=== PATIENT | male | born 1935 | race Caucasian/White ===

== ENCOUNTER 2016-11-15 19:43 | Emergency (ER) | payer MEDICARE, OTHER, MEDICAID ==
[2016-11-15] MEDS ORDERED: Morphine 4 MG/ML Syringe IVPUSH ONE (20:28)
[2016-11-15 20:48] LABS: CHLORIDE,CL 101 mmol/L (98-107); SODIUM,NA 137 mmol/L (136-145)
[2016-11-15 21:19] VITALS: BP 149/83
--- NOTE | 2016-11-16 08:34 | ER ---
Date of Service: 11/15/2016 SUBJECTIVE: Mr. Kim presents to the emergency room with complaints of left hip pain. He states that he was attempting to sit on the toilet when he fell onto his left side and states that he is experiencing severe pain to his left hip. He states that he has a history of severe osteoporosis and has previously fractured his right hip. He states that he did land on his left shoulder and sounds as though he did hyperextend it to a certain extent and states that he is experiencing some mild anterior shoulder pain. Initially, he was complaining of some lateral neck pain, but that resolved shortly after arriving to the emergency room. He also complains of a superficial skin tear to his left elbow. Again, he did not lose consciousness or experience any chest pain, shortness of breath, or palpitations prior to the fall and was conscious during the entire event. He did receive 1 mg of Dilaudid pre-hospital to aid with movement and pain control. PAST MEDICAL HISTORY: 1. Hypertension. 2. Type 2 diabetes mellitus. 3. Vitamin B12 deficiency. 4. Vitamin D3 deficiency. 5. Dyslipidemia. 6. Osteopenia. 7. Osteoporosis. 8. Coronary artery disease. 9. Diastolic heart failure. 10.Peptic ulcer disease. 11.Gastroesophageal reflux. 12.Peripheral vascular disease. 13.Essential hypertension. 14.BPH. ALLERGIES: It says beta-blockers he is allergic to. He is on a beta emilio. The patient states that he is allergic to beta-blockers; however, he is on both Toprol-XL and timolol eyedrops. It sounds as though they stopped his beta- emilio for cardiac procedure and sounds as though that is why this allergy is ended up in his chart. MEDICATIONS: 1. Aspirin 325 mg p.o. daily. 2. Acetaminophen 1000 mg p.o. b.i.d. p.r.n. 3. Lantus 10 units subcutaneously b.i.d. 4. Lasix 20 mg p.o. b.i.d. 5. Cyanocobalamin 1000 mcg p.o. daily. 6. Vitamin D3 1000 units p.o. daily. 7. Calcium plus D 1 tablet daily. 8. Humalog 5 units subcu b.i.d. with meals. 9. Glucophage 750 mg p.o. b.i.d. 10.Timoptic 0.5% 1 drop to both eyes b.i.d. 11.Pravachol 20 mg p.o. daily. 12.Toprol XL 12.5 mg p.o. daily. 13.Magnesium oxide 400 mg p.o. daily. 14.Cozaar 100 mg p.o. daily. 15.Florajen supplement 1 cap daily. REVIEW OF SYSTEMS: General: Denies any fever, chills, recent illnesses. HEENT: States that he did lightly strike his head during the fall, but denies any headache. Denies any confusion. He states that he did not strike his head, it was a very light strike to the head. Denies any other head or facial trauma noted. Chest: Denies any chest trauma. No chest pain or shortness of breath. Abdomen: Denies any abdominal pain. Pelvis: Again complains of right lateral hip pain in the area of the lateral trochanter. Musculoskeletal: He does have a superficial abrasion to his left elbow. He also does have some mild anterior left shoulder pain. No step-offs or deformity noted. His range of motion to the joint is within normal limits. Neurovascular, circulation, sensation, and motor function are all within normal limits in the distal portion of all extremities. No rotation to the left lower extremity. No shortening noted. Neurologic: He is alert, oriented, answers all questions appropriately. His speech is fluent. RADIOGRAPHIC DATA: Pelvis and left hip radiographs were obtained. He does have evidence of a nondisplaced left intertrochanteric hip fracture. LABORATORY DATA: WBC is 12.3, hemoglobin is 13.1, platelets are 218. Coag PT is 11.6, INR is 1.0. Chemistry, sodium is 137, potassium is 4.0, chloride is 101, bicarb is 28, BUN is 7, creatinine is 1.0. Creatinine clearance is 62.51. GFR is greater than 60. Glucose is 169, calcium is 8.3, corrected calcium is 8.78, total bilirubin is 0.5, AST is 26, ALT is 39, alkaline phosphatase is 116, total protein is 6.8, albumin is 3.4. EMERGENCY ROOM COURSE: IV access was established. He was given another 4 mg of morphine for further pain control. He was not experiencing any midline cervical spinal pain, so no C-collar was applied. He remained stable in my care in the emergency room. ASSESSMENT: Left intertrochanteric hip fracture. PLAN: The patient will be transferred to [facility] in [place]. Dr. Guevara is accepting the patient. The patient will be transported to the ER and then set up for surgery. He will be transported by [facility] ground ambulance. He can receive further morphine or Dilaudid for pain control. All questions were answered. MWK: 11/15/2016 21:29:22 MODL: 11/15/2016 22:39:24 /[id number]
--- NOTE | 2016-11-28 08:01 | ER ---
Date of Service: 11/15/2016 ADDENDUM: PHYSICAL EXAMINATION: General: The patient is an 81-year-old male patient, who is in no acute distress. Vital Signs: Blood pressure is 161/75, after his pain was adequately controlled was down to 149/83, pulse rate 76, temperature is 37.1, respiratory rate 18, O2 saturations 95%. Skin: Warm, pale, and dry. HEENT: Head is normocephalic and atraumatic. Eyes, PERRLA. Extraocular movements are intact. Heart: Regular rate and rhythm. Abdomen: Soft and nontender. Lungs: Clear to auscultation. Abdomen: Soft and nontender. There is no hepatosplenomegaly or masses noted. Extremities: Please see history of present illness. Again, he does complain of severe left hip pain. Also, complains of superficial abrasion to the left elbow. Remainder of his physical examination is within normal limits. MWK: 11/27/2016 16:41:52 MODL: 11/28/2016 00:33:16 /[id number]
== END 2016-11-15 21:50 | disposition short-term general hospital (02) ==
LOC: VM.ED 19:43
DX: S72.145A Nondisplaced intertrochanteric fracture of left femur, initial encounter for closed fracture (principal); S50.312A Abrasion of left elbow, initial encounter; S40.212A Abrasion of left shoulder, initial encounter; E11.9 Type 2 diabetes mellitus without complications; E78.5 Hyperlipidemia, unspecified; I25.10 Atherosclerotic heart disease of native coronary artery without angina pectoris; I11.0 Hypertensive heart disease with heart failure; I50.30 Unspecified diastolic (congestive) heart failure; K21.9 Gastro-esophageal reflux disease without esophagitis; Z88.8 Allergy status to other drugs, medicaments and biological substances; Z79.82 Long term (current) use of aspirin; Z79.4 Long term (current) use of insulin; Z79.899 Other long term (current) drug therapy; W19.XXXA Unspecified fall, initial encounter
CPT/HCPCS: 36415; 73502; 80053; 85025; 85610; 96374; 99285; J2270

== ENCOUNTER 2016-11-20 09:28 | Inpatient (IN) | payer MEDICARE, OTHER, MEDICAID ==
[2016-11-20] MEDS ORDERED: Insulin Aspart 100 Units/ML 3 ML Pen SUBCUT ONE (12:13)
[2016-11-20] MEDS: Acetaminophen/HYDROcodone 325-5 MG Tab PO PRN ×2 (12:17→21:34)
[2016-11-20] MEDS ORDERED: Bisacodyl 5 MG Tab PO PRN (14:41)
[2016-11-20] MEDS: Furosemide 20 MG Tab PO SCH (16:00)
[2016-11-20] MEDS: Insulin Aspart 100 Units/ML 3 ML Pen SUBCUT SCH (17:52)
[2016-11-20] MEDS: Insulin Detemir 100 Units/ML 3 ML Pen SUBCUT SCH (19:59)
[2016-11-20] MEDS: Timolol Maleate 0.5% Ophth Soln 5 ML Bottle EYEBOTH SCH (20:00)
--- NOTE | 2016-11-20 21:25 | HP ---
CHIEF COMPLAINT: Left hip fracture status post left hip IM nailing on 11/17/2016. HISTORY OF PRESENT ILLNESS: This is an 81-year-old male who broke his right hip last year. He was trying to sit down on, he let go of the walker and the chair tipped over breaking his hip. He was transferred to [place] and underwent surgery. He had no postoperative complications. He has had no trouble breathing. His hemoglobin was 9.4 yesterday and had been recently checked through the clinic on the and was 13.7, he did not require any blood transfusions. He has been on Lovenox for DVT prophylaxis. Otherwise, he has not had a bowel movement for several days. He is taking hydrocodone which helps for pain control. He had recently been in the clinic and due to increased leg swelling, had increased Lasix to 20 mg twice daily. He is tolerating that without any lightheadedness or dizziness. ALLERGIES: Includes beta blockers with severe bradycardia. MEDICATIONS: Includes the Humalog 5 units at noon, 3 units at supper; Lovenox 40 units daily through 12/14; hydrocodone as needed for severe pain, ; Shyanne- Colace 1 tab twice daily; Lasix 20 mg twice daily, vitamin D 3000 units daily; losartan 100 mg daily, Pravachol 20 mg daily; Flomax 1 capsule daily; Toprol 25 mg daily; Tylenol as needed; Echinacea; saw Cora; multivitamins; calcium; vitamin D; co-enzyme Q10; digestive enzymes; metformin 1500 mg daily; Timoptic eye drops; Lantus 10 units b.i.d.; mag oxide 400 mg daily; and aspirin 325 daily. PAST MEDICAL HISTORY: Include: 1. Osteopenia. He had previously been in the clinic to discuss this. He declines medications at this point. 2. T-score was -2.1. 3. Reactive airway disease that was not asthma, type 2 diabetes with retinopathy, long-term insulin use under good control. 4. Coronary artery disease status post bypass surgery. Previous posterior vitreous detachment of the eye, arthritis of the knees, glaucoma open- angle, hyperlipidemia, history of duodenal ulcer and previous GI bleeding in 2011, previous cataract surgery, peripheral vascular disease due for followup with Vascular Surgery in a couple of weeks, chronic diastolic heart failure on Lasix, erectile dysfunction, obesity, GERD, hypertriglyceridemia, diffuse idiopathic skeletal hyperostosis, vitamin B12 deficiency, and BPH. PAST SURGICAL HISTORY: The patient has had a cataract surgery in 2015 on the left eye, dental surgery, tonsillectomy, hip nailing on the right, and 2016 hip nailing on the left, bypass surgery in 2013 of the heart x3. SOCIAL HISTORY: The patient is retired. He is . He has 3 children. FAMILY HISTORY: He has both parents . His sisters with diabetes, brother with heart attack. Another brother with post-polio issues. REVIEW OF SYSTEMS: General: He had not had any recent weight changes. No fever. No chills. HEENT: No trouble swallowing. No sore throat. Cardiac: No chest pain. No palpitations. No syncope. Respiratory: No cough. Abdominal: No abdominal pain, nausea, vomiting, or diarrhea. Musculoskeletal: He has had the hip pain. Otherwise, no new aches or pains. Psychiatric: He has not been anxious or depressed. Neurologic: He has not been forgetful. Otherwise, all systems reviewed and found to be negative unless otherwise stated. PHYSICAL EXAMINATION: Vital Signs: On hospital arrival, his weight is listed as 114.5 kg, pulse 78, temperature 97.2, blood pressure 160/73, respiratory rate 16, and O2 of 100% on room air. General: He is in no acute distress. Heart: Regular rate and rhythm. S1, S2 with diastolic murmur. Lungs: Sounds are clear to auscultation bilaterally without crackles or wheezes. Abdomen: Positive bowel sounds. Soft and nontender. Extremities: Warm and dry. No edema. Hip incision is not examined on initial exam. He had no concerns. No drainage from it. No gisele in place by report. Mental Status: Otherwise, he is alert and orientated x3. LABORATORY DATA: Again lab work was reviewed from yesterday, hemoglobin 9.4. Kidney function from 11/17 did show a creatinine of 0.6 with sodium 132. ASSESSMENT: 1. Left hip fracture due to mechanical fall, but from a standing height with known osteopenia. Discussed with the patient it might be advisable to take treatments like Forteo for his bones. He has heard bad things about bone building medications and is not interested at this point. For pain control, we will continue the hydrocodone, will continue the Lovenox for another 24 days. 2. Hyponatremia, mild. We will repeat lab work tomorrow. 3. Postoperative anemia due to bleeding. We will repeat tomorrow to ensure that there is no active bleeding. We will hold Lovenox if that is the case. 4. Type 2 diabetes with complications, well controlled. We will continue his home insulin with q.i.d. Accu-Cheks. 5. Essential hypertension with elevated blood pressures. We will continue his Lasix 20 mg twice daily and losartan and also his Toprol even though it is listed as an allergy with bradycardia. We will continue to monitor his heart rates closely. 6. Coronary artery disease. He has not had any chest pain. PLAN: At this point, the patient is admitted for swing bed cares. We will get PT OT to assess him. He will have support stockings. He is weightbearing as tolerated. We will continue Lovenox. We will continue bowel medications. We will institute Dulcolax as needed. Pain control with hydrocodone. He is a code level 1. MKA: 11/20/2016 17:28:56 MODL: 11/20/2016 21:16:50 /[id number]
[2016-11-21] MEDS: Acetaminophen/HYDROcodone 325-5 MG Tab PO PRN ×3 (04:16→20:36)
[2016-11-21 07:23] LABS: CHLORIDE,CL 101 mmol/L (98-107); SODIUM,NA 137 mmol/L (136-145)
[2016-11-21] MEDS: Furosemide 20 MG Tab PO SCH ×2 (07:34→15:55)
[2016-11-21] MEDS: Enoxaparin 40 MG/0.4 ML Syringe SUBCUT SCH (07:34)
[2016-11-21] MEDS: Calcium Carbonate/Vitamin D3 1250 MG-200 Unit Tab PO SCH (07:34)
[2016-11-21] MEDS: Metoprolol Succinate 25 MG Tab.ER PO SCH (07:35)
[2016-11-21] MEDS: metFORMIN 500 MG Tab PO SCH ×2 (07:35→17:39)
[2016-11-21] MEDS: Magnesium Oxide 400 MG Tab PO SCH (07:38)
[2016-11-21] MEDS: Cholecalciferol (Vitamin D3) 1,000 Unit Tab PO SCH (07:38)
[2016-11-21] MEDS: Losartan 50 MG Tab PO SCH (07:38)
[2016-11-21] MEDS: Multivitamins with Iron/Calcium/Folic Acid/Minerals Tab PO SCH (07:39)
[2016-11-21] MEDS: Tamsulosin 0.4 MG Cap.ER PO SCH (07:39)
[2016-11-21] MEDS: Timolol Maleate 0.5% Ophth Soln 5 ML Bottle EYEBOTH SCH ×2 (07:40→20:36)
[2016-11-21] MEDS: Simvastatin 10 MG Tab PO SCH (07:40)
[2016-11-21] MEDS: Aspirin 81 MG Tab.EC PO SCH (07:40)
[2016-11-21] MEDS: Insulin Detemir 100 Units/ML 3 ML Pen SUBCUT SCH ×2 (07:43→20:35)
[2016-11-21] MEDS: [UNRECOGNIZED DRUG - OTHER] PO SCH (08:44)
[2016-11-21] MEDS: ECHINACEA PO SCH (08:44)
[2016-11-21] MEDS: SAW PALMETTO 1200 MG PO SCH (08:44)
[2016-11-21] MEDS: POTASSIUM 99 MG PO SCH (08:44)
[2016-11-21] MEDS: Insulin Aspart 100 Units/ML 3 ML Pen SUBCUT SCH ×2 (11:48→17:39)
[2016-11-22] MEDS: Calcium Carbonate/Vitamin D3 1250 MG-200 Unit Tab PO SCH (08:47)
[2016-11-22] MEDS: Furosemide 20 MG Tab PO SCH ×2 (08:47→16:03)
[2016-11-22] MEDS: Enoxaparin 40 MG/0.4 ML Syringe SUBCUT SCH (08:47)
[2016-11-22] MEDS: metFORMIN 500 MG Tab PO SCH ×2 (08:47→18:07)
[2016-11-22] MEDS: Losartan 50 MG Tab PO SCH (08:48)
[2016-11-22] MEDS: Tamsulosin 0.4 MG Cap.ER PO SCH (08:49)
[2016-11-22] MEDS: Aspirin 81 MG Tab.EC PO SCH (08:49)
[2016-11-22] MEDS: Acetaminophen/HYDROcodone 325-5 MG Tab PO PRN ×2 (08:49→19:54)
[2016-11-22] MEDS: Metoprolol Succinate 25 MG Tab.ER PO SCH (08:51)
[2016-11-22] MEDS: Multivitamins with Iron/Calcium/Folic Acid/Minerals Tab PO SCH (08:51)
[2016-11-22] MEDS: Magnesium Oxide 400 MG Tab PO SCH (08:52)
[2016-11-22] MEDS: Cholecalciferol (Vitamin D3) 1,000 Unit Tab PO SCH (08:52)
[2016-11-22] MEDS: Simvastatin 10 MG Tab PO SCH (08:52)
[2016-11-22] MEDS: Timolol Maleate 0.5% Ophth Soln 5 ML Bottle EYEBOTH SCH ×2 (08:53→19:55)
[2016-11-22] MEDS: SAW PALMETTO 1200 MG PO SCH (08:53)
[2016-11-22] MEDS: [UNRECOGNIZED DRUG - OTHER] PO SCH (08:54)
[2016-11-22] MEDS: POTASSIUM 99 MG PO SCH (08:54)
[2016-11-22] MEDS: ECHINACEA PO SCH (08:54)
[2016-11-22] MEDS: Insulin Detemir 100 Units/ML 3 ML Pen SUBCUT SCH ×2 (08:55→19:55)
[2016-11-22] MEDS: Insulin Aspart 100 Units/ML 3 ML Pen SUBCUT SCH ×2 (12:30→18:08)
[2016-11-23] MEDS: Cholecalciferol (Vitamin D3) 1,000 Unit Tab PO SCH (08:41)
[2016-11-23] MEDS: Enoxaparin 40 MG/0.4 ML Syringe SUBCUT SCH (08:41)
[2016-11-23] MEDS: Multivitamins with Iron/Calcium/Folic Acid/Minerals Tab PO SCH (08:41)
[2016-11-23] MEDS: metFORMIN 500 MG Tab PO SCH ×2 (08:42→17:27)
[2016-11-23] MEDS: Losartan 50 MG Tab PO SCH (08:42)
[2016-11-23] MEDS: Aspirin 81 MG Tab.EC PO SCH (08:42)
[2016-11-23] MEDS: Tamsulosin 0.4 MG Cap.ER PO SCH (08:42)
[2016-11-23] MEDS: Calcium Carbonate/Vitamin D3 1250 MG-200 Unit Tab PO SCH (08:42)
[2016-11-23] MEDS: Simvastatin 10 MG Tab PO SCH (08:42)
[2016-11-23] MEDS: Metoprolol Succinate 25 MG Tab.ER PO SCH (08:42)
[2016-11-23] MEDS: Furosemide 20 MG Tab PO SCH ×2 (08:43→17:27)
[2016-11-23] MEDS: Insulin Detemir 100 Units/ML 3 ML Pen SUBCUT SCH ×2 (08:43→22:09)
[2016-11-23] MEDS: Magnesium Oxide 400 MG Tab PO SCH (08:44)
[2016-11-23] MEDS: Acetaminophen/HYDROcodone 325-5 MG Tab PO PRN ×2 (08:46→22:09)
[2016-11-23] MEDS: ECHINACEA PO SCH (08:50)
[2016-11-23] MEDS: [UNRECOGNIZED DRUG - OTHER] PO SCH (08:50)
[2016-11-23] MEDS: POTASSIUM 99 MG PO SCH (08:50)
[2016-11-23] MEDS: SAW PALMETTO 1200 MG PO SCH (08:50)
[2016-11-23] MEDS: Timolol Maleate 0.5% Ophth Soln 5 ML Bottle EYEBOTH SCH ×2 (08:50→22:09)
[2016-11-23] MEDS: Insulin Aspart 100 Units/ML 3 ML Pen SUBCUT SCH ×2 (12:13→17:28)
[2016-11-24] MEDS: Acetaminophen 500 MG Tab PO PRN ×2 (01:44→23:27)
[2016-11-24] MEDS: Insulin Detemir 100 Units/ML 3 ML Pen SUBCUT SCH ×2 (09:13→19:31)
[2016-11-24] MEDS: Enoxaparin 40 MG/0.4 ML Syringe SUBCUT SCH (09:16)
[2016-11-24] MEDS: Multivitamins with Iron/Calcium/Folic Acid/Minerals Tab PO SCH (09:18)
[2016-11-24] MEDS: Aspirin 81 MG Tab.EC PO SCH (09:18)
[2016-11-24] MEDS: Cholecalciferol (Vitamin D3) 1,000 Unit Tab PO SCH (09:19)
[2016-11-24] MEDS: Metoprolol Succinate 25 MG Tab.ER PO SCH (09:20)
[2016-11-24] MEDS: Calcium Carbonate/Vitamin D3 1250 MG-200 Unit Tab PO SCH (09:21)
[2016-11-24] MEDS: metFORMIN 500 MG Tab PO SCH ×2 (09:22→17:49)
[2016-11-24] MEDS: Furosemide 20 MG Tab PO SCH ×2 (09:23→17:49)
[2016-11-24] MEDS: Tamsulosin 0.4 MG Cap.ER PO SCH (09:24)
[2016-11-24] MEDS: Simvastatin 10 MG Tab PO SCH (09:25)
[2016-11-24] MEDS: Timolol Maleate 0.5% Ophth Soln 5 ML Bottle EYEBOTH SCH ×2 (09:26→19:31)
[2016-11-24] MEDS: Losartan 50 MG Tab PO SCH (09:27)
[2016-11-24] MEDS: ECHINACEA PO SCH (09:28)
[2016-11-24] MEDS: [UNRECOGNIZED DRUG - OTHER] PO SCH (09:28)
[2016-11-24] MEDS: POTASSIUM 99 MG PO SCH (09:29)
[2016-11-24] MEDS: Magnesium Oxide 400 MG Tab PO SCH (09:29)
[2016-11-24] MEDS: SAW PALMETTO 1200 MG PO SCH (09:30)
[2016-11-24] MEDS: Acetaminophen/HYDROcodone 325-5 MG Tab PO PRN ×2 (09:38→22:04)
[2016-11-24] MEDS: Insulin Aspart 100 Units/ML 3 ML Pen SUBCUT SCH ×2 (12:22→17:50)
[2016-11-25] MEDS: Enoxaparin 40 MG/0.4 ML Syringe SUBCUT SCH (08:09)
[2016-11-25] MEDS: Timolol Maleate 0.5% Ophth Soln 5 ML Bottle EYEBOTH SCH ×2 (08:10→20:33)
[2016-11-25] MEDS: Cholecalciferol (Vitamin D3) 1,000 Unit Tab PO SCH (08:10)
[2016-11-25] MEDS: Insulin Detemir 100 Units/ML 3 ML Pen SUBCUT SCH ×2 (08:10→20:32)
[2016-11-25] MEDS: Multivitamins with Iron/Calcium/Folic Acid/Minerals Tab PO SCH (08:11)
[2016-11-25] MEDS: Furosemide 20 MG Tab PO SCH ×2 (08:11→17:54)
[2016-11-25] MEDS: Metoprolol Succinate 25 MG Tab.ER PO SCH (08:11)
[2016-11-25] MEDS: Calcium Carbonate/Vitamin D3 1250 MG-200 Unit Tab PO SCH (08:11)
[2016-11-25] MEDS: Aspirin 81 MG Tab.EC PO SCH (08:11)
[2016-11-25] MEDS: Tamsulosin 0.4 MG Cap.ER PO SCH (08:11)
[2016-11-25] MEDS: metFORMIN 500 MG Tab PO SCH ×2 (08:11→17:54)
[2016-11-25] MEDS: Simvastatin 10 MG Tab PO SCH (08:11)
[2016-11-25] MEDS: Losartan 50 MG Tab PO SCH (08:11)
[2016-11-25] MEDS: Magnesium Oxide 400 MG Tab PO SCH (08:11)
[2016-11-25] MEDS: [UNRECOGNIZED DRUG - OTHER] PO SCH (08:12)
[2016-11-25] MEDS: POTASSIUM 99 MG PO SCH (08:12)
[2016-11-25] MEDS: SAW PALMETTO 1200 MG PO SCH (08:12)
[2016-11-25] MEDS: ECHINACEA PO SCH (08:12)
[2016-11-25] MEDS: Acetaminophen/HYDROcodone 325-5 MG Tab PO PRN ×2 (08:16→22:00)
[2016-11-25] MEDS: Insulin Aspart 100 Units/ML 3 ML Pen SUBCUT SCH ×2 (12:22→17:55)
[2016-11-26] MEDS: Acetaminophen 500 MG Tab PO PRN (01:52)
[2016-11-26] MEDS: Enoxaparin 40 MG/0.4 ML Syringe SUBCUT SCH (08:16)
[2016-11-26] MEDS: Cholecalciferol (Vitamin D3) 1,000 Unit Tab PO SCH (08:17)
[2016-11-26] MEDS: Multivitamins with Iron/Calcium/Folic Acid/Minerals Tab PO SCH (08:17)
[2016-11-26] MEDS: Insulin Detemir 100 Units/ML 3 ML Pen SUBCUT SCH ×2 (08:17→19:45)
[2016-11-26] MEDS: Aspirin 81 MG Tab.EC PO SCH (08:17)
[2016-11-26] MEDS: Furosemide 20 MG Tab PO SCH ×2 (08:18→15:29)
[2016-11-26] MEDS: Calcium Carbonate/Vitamin D3 1250 MG-200 Unit Tab PO SCH (08:18)
[2016-11-26] MEDS: Losartan 50 MG Tab PO SCH (08:18)
[2016-11-26] MEDS: Metoprolol Succinate 25 MG Tab.ER PO SCH (08:18)
[2016-11-26] MEDS: metFORMIN 500 MG Tab PO SCH ×2 (08:18→17:52)
[2016-11-26] MEDS: Simvastatin 10 MG Tab PO SCH (08:18)
[2016-11-26] MEDS: Tamsulosin 0.4 MG Cap.ER PO SCH (08:18)
[2016-11-26] MEDS: Magnesium Oxide 400 MG Tab PO SCH (08:18)
[2016-11-26] MEDS: POTASSIUM 99 MG PO SCH (08:19)
[2016-11-26] MEDS: ECHINACEA PO SCH (08:19)
[2016-11-26] MEDS: SAW PALMETTO 1200 MG PO SCH (08:19)
[2016-11-26] MEDS: [UNRECOGNIZED DRUG - OTHER] PO SCH (08:19)
[2016-11-26] MEDS: Timolol Maleate 0.5% Ophth Soln 5 ML Bottle EYEBOTH SCH ×2 (08:20→19:46)
[2016-11-26] MEDS: Insulin Aspart 100 Units/ML 3 ML Pen SUBCUT SCH ×2 (12:17→17:52)
[2016-11-27] MEDS: Acetaminophen/HYDROcodone 325-5 MG Tab PO PRN ×3 (00:12→20:23)
[2016-11-27] MEDS: Cholecalciferol (Vitamin D3) 1,000 Unit Tab PO SCH (07:41)
[2016-11-27] MEDS: Tamsulosin 0.4 MG Cap.ER PO SCH (07:42)
[2016-11-27] MEDS: Simvastatin 10 MG Tab PO SCH (07:42)
[2016-11-27] MEDS: Multivitamins with Iron/Calcium/Folic Acid/Minerals Tab PO SCH (07:42)
[2016-11-27] MEDS: Aspirin 81 MG Tab.EC PO SCH (07:42)
[2016-11-27] MEDS: Furosemide 20 MG Tab PO SCH ×2 (07:43→17:21)
[2016-11-27] MEDS: metFORMIN 500 MG Tab PO SCH ×2 (07:44→17:20)
[2016-11-27] MEDS: Calcium Carbonate/Vitamin D3 1250 MG-200 Unit Tab PO SCH (07:44)
[2016-11-27] MEDS: Metoprolol Succinate 25 MG Tab.ER PO SCH (07:45)
[2016-11-27] MEDS: Losartan 50 MG Tab PO SCH (07:46)
[2016-11-27] MEDS: Enoxaparin 40 MG/0.4 ML Syringe SUBCUT SCH (07:47)
[2016-11-27] MEDS: POTASSIUM 99 MG PO SCH (07:48)
[2016-11-27] MEDS: [UNRECOGNIZED DRUG - OTHER] PO SCH (07:48)
[2016-11-27] MEDS: SAW PALMETTO 1200 MG PO SCH (07:48)
[2016-11-27] MEDS: Magnesium Oxide 400 MG Tab PO SCH (07:48)
[2016-11-27] MEDS: ECHINACEA PO SCH (07:49)
[2016-11-27] MEDS: Insulin Detemir 100 Units/ML 3 ML Pen SUBCUT SCH ×2 (07:51→20:20)
[2016-11-27] MEDS: Timolol Maleate 0.5% Ophth Soln 5 ML Bottle EYEBOTH SCH ×2 (07:53→20:23)
--- NOTE | 2016-11-27 09:40 | PN ---
Progress Note for CARLOTA CARRINGTON Date: 11/27/2016 Room #: VM.202 SUBJECTIVE: This is an 81-year-old, on swing bed after left hip fracture. He has noted some more bruising into the left hip. There is a slight hematoma there. He says it is now less tender to touch. He has had some more left leg swelling, but has been refusing his support stockings. He has been on Lovenox for DVT prophylaxis. Hemoglobin was 9.3 on 11/21/2016. Otherwise, he has diabetes. His blood sugars have been under excellent control. He is up, he is working with therapies. He is managing his pain with hydrocodone. He is taking about 2 pills per day on average. OBJECTIVE: Vital Signs: Include a temperature 99, pulse 79, blood pressure 148/84, respiratory rate 19, O2 of 100% on room air. General: He is in no acute distress. Extremities: The left thigh is examined. Incision is clean, dry, and intact without redness. There is a firm area located that extends down 3[address] the knee. It does not appear to be tender, but there is bruising. The left calf has 1+ edema when compared to the right. Homans sign is negative. Mental Status: He is alert and orientated x3. ASSESSMENT: 1. Left hip fracture status post open reduction and internal fixation, due to mechanical fall. We will get the patient started on Forteo. 2. Left thigh hematoma. We are going to hold off on Lovenox on Saturday and . He has already had his dose today. 3. Left leg swelling and deep vein thrombosis prophylaxis. He is agreeable to wear the AGUILA stockings for the next 3 days. 4. Postoperative anemia. I will repeat hemoglobin today. 5. Type 2 diabetes with complications well controlled. 6. Essential hypertension, most blood pressures have been acceptable, just mildly elevated today. 7. Coronary artery disease. PLAN: At this point, he will continue swing bed cares. We will get Forteo started. We will hold Lovenox for the next 2 days. We will use support stockings. We will continue hydrocodone for pain control. MKA: 11/27/2016 09:07:48 MODL: 11/27/2016 09:28:10 /[id number]
[2016-11-27] MEDS: Insulin Aspart 100 Units/ML 3 ML Pen SUBCUT SCH ×2 (12:47→17:22)
[2016-11-27] MEDS: FORTEO SUBCUT SCH ×2 (17:41→17:48)
[2016-11-28] MEDS: Metoprolol Succinate 25 MG Tab.ER PO SCH (08:16)
[2016-11-28] MEDS: Cholecalciferol (Vitamin D3) 1,000 Unit Tab PO SCH (08:16)
[2016-11-28] MEDS: Magnesium Oxide 400 MG Tab PO SCH (08:16)
[2016-11-28] MEDS: Aspirin 81 MG Tab.EC PO SCH (08:16)
[2016-11-28] MEDS: Multivitamins with Iron/Calcium/Folic Acid/Minerals Tab PO SCH (08:16)
[2016-11-28] MEDS: Simvastatin 10 MG Tab PO SCH (08:17)
[2016-11-28] MEDS: Calcium Carbonate/Vitamin D3 1250 MG-200 Unit Tab PO SCH (08:17)
[2016-11-28] MEDS: Tamsulosin 0.4 MG Cap.ER PO SCH (08:17)
[2016-11-28] MEDS: Furosemide 20 MG Tab PO SCH ×2 (08:17→17:30)
[2016-11-28] MEDS: Losartan 50 MG Tab PO SCH (08:17)
[2016-11-28] MEDS: metFORMIN 500 MG Tab PO SCH ×2 (08:17→17:30)
[2016-11-28] MEDS: Acetaminophen/HYDROcodone 325-5 MG Tab PO PRN ×2 (08:17→22:20)
[2016-11-28] MEDS: Timolol Maleate 0.5% Ophth Soln 5 ML Bottle EYEBOTH SCH ×2 (08:18→22:18)
[2016-11-28] MEDS: Insulin Detemir 100 Units/ML 3 ML Pen SUBCUT SCH ×2 (08:18→22:19)
[2016-11-28] MEDS: FORTEO SUBCUT SCH (08:22)
[2016-11-28] MEDS: ECHINACEA PO SCH (08:23)
[2016-11-28] MEDS: [UNRECOGNIZED DRUG - OTHER] PO SCH (08:23)
[2016-11-28] MEDS: SAW PALMETTO 1200 MG PO SCH (08:23)
[2016-11-28] MEDS: POTASSIUM 99 MG PO SCH (08:23)
[2016-11-28] MEDS: Insulin Aspart 100 Units/ML 3 ML Pen SUBCUT SCH ×2 (12:16→17:31)
[2016-11-28] MEDS: Acetaminophen 500 MG Tab PO PRN (22:21)
[2016-11-29] MEDS: Magnesium Oxide 400 MG Tab PO SCH (08:11)
[2016-11-29] MEDS: Multivitamins with Iron/Calcium/Folic Acid/Minerals Tab PO SCH (08:11)
[2016-11-29] MEDS: Aspirin 81 MG Tab.EC PO SCH (08:11)
[2016-11-29] MEDS: Cholecalciferol (Vitamin D3) 1,000 Unit Tab PO SCH (08:11)
[2016-11-29] MEDS: Metoprolol Succinate 25 MG Tab.ER PO SCH (08:11)
[2016-11-29] MEDS: metFORMIN 500 MG Tab PO SCH ×2 (08:12→18:12)
[2016-11-29] MEDS: Acetaminophen/HYDROcodone 325-5 MG Tab PO PRN (08:12)
[2016-11-29] MEDS: Tamsulosin 0.4 MG Cap.ER PO SCH (08:12)
[2016-11-29] MEDS: Losartan 50 MG Tab PO SCH (08:12)
[2016-11-29] MEDS: Simvastatin 10 MG Tab PO SCH (08:12)
[2016-11-29] MEDS: FORTEO SUBCUT SCH (08:13)
[2016-11-29] MEDS: Calcium Carbonate/Vitamin D3 1250 MG-200 Unit Tab PO SCH (08:13)
[2016-11-29] MEDS: Furosemide 20 MG Tab PO SCH ×2 (08:13→16:54)
[2016-11-29] MEDS: Insulin Detemir 100 Units/ML 3 ML Pen SUBCUT SCH ×2 (08:14→20:03)
[2016-11-29] MEDS: SAW PALMETTO 1200 MG PO SCH (08:14)
[2016-11-29] MEDS: Timolol Maleate 0.5% Ophth Soln 5 ML Bottle EYEBOTH SCH ×2 (08:14→20:03)
[2016-11-29] MEDS: [UNRECOGNIZED DRUG - OTHER] PO SCH (08:15)
[2016-11-29] MEDS: POTASSIUM 99 MG PO SCH (08:15)
[2016-11-29] MEDS: ECHINACEA PO SCH (08:18)
[2016-11-29] MEDS: Insulin Aspart 100 Units/ML 3 ML Pen SUBCUT SCH ×2 (13:10→18:13)
[2016-11-29] MEDS: Melatonin 3 MG Tab PO SCH (20:03)
[2016-11-30] MEDS: Enoxaparin 40 MG/0.4 ML Syringe SUBCUT SCH (08:29)
[2016-11-30] MEDS: Tamsulosin 0.4 MG Cap.ER PO SCH (08:29)
[2016-11-30] MEDS: Magnesium Oxide 400 MG Tab PO SCH (08:30)
[2016-11-30] MEDS: Furosemide 20 MG Tab PO SCH ×2 (08:30→16:32)
[2016-11-30] MEDS: Cholecalciferol (Vitamin D3) 1,000 Unit Tab PO SCH (08:30)
[2016-11-30] MEDS: Calcium Carbonate/Vitamin D3 1250 MG-200 Unit Tab PO SCH (08:30)
[2016-11-30] MEDS: metFORMIN 500 MG Tab PO SCH ×2 (08:30→17:55)
[2016-11-30] MEDS: Multivitamins with Iron/Calcium/Folic Acid/Minerals Tab PO SCH (08:30)
[2016-11-30] MEDS: Simvastatin 10 MG Tab PO SCH (08:30)
[2016-11-30] MEDS: Losartan 50 MG Tab PO SCH (08:30)
[2016-11-30] MEDS: Acetaminophen/HYDROcodone 325-5 MG Tab PO PRN ×2 (08:31→22:37)
[2016-11-30] MEDS: Metoprolol Succinate 25 MG Tab.ER PO SCH (08:31)
[2016-11-30] MEDS: Aspirin 81 MG Tab.EC PO SCH (08:31)
[2016-11-30] MEDS: Timolol Maleate 0.5% Ophth Soln 5 ML Bottle EYEBOTH SCH ×2 (08:32→20:43)
[2016-11-30] MEDS: SAW PALMETTO 1200 MG PO SCH (08:35)
[2016-11-30] MEDS: POTASSIUM 99 MG PO SCH (08:35)
[2016-11-30] MEDS: ECHINACEA PO SCH (08:36)
[2016-11-30] MEDS: Insulin Detemir 100 Units/ML 3 ML Pen SUBCUT SCH ×2 (08:36→20:42)
[2016-11-30] MEDS: [UNRECOGNIZED DRUG - OTHER] PO SCH (08:36)
[2016-11-30] MEDS: FORTEO SUBCUT SCH (08:41)
[2016-11-30] MEDS: Insulin Aspart 100 Units/ML 3 ML Pen SUBCUT SCH ×2 (11:55→17:56)
[2016-11-30] MEDS: Melatonin 3 MG Tab PO SCH (20:41)
[2016-12-01] MEDS: Acetaminophen/HYDROcodone 325-5 MG Tab PO PRN ×2 (03:39→19:54)
[2016-12-01] MEDS: Enoxaparin 40 MG/0.4 ML Syringe SUBCUT SCH (08:47)
[2016-12-01] MEDS: Timolol Maleate 0.5% Ophth Soln 5 ML Bottle EYEBOTH SCH ×2 (08:48→19:53)
[2016-12-01] MEDS: Insulin Detemir 100 Units/ML 3 ML Pen SUBCUT SCH ×2 (08:48→19:53)
[2016-12-01] MEDS: Tamsulosin 0.4 MG Cap.ER PO SCH (08:49)
[2016-12-01] MEDS: Simvastatin 10 MG Tab PO SCH (08:49)
[2016-12-01] MEDS: Furosemide 20 MG Tab PO SCH ×2 (08:49→15:38)
[2016-12-01] MEDS: Cholecalciferol (Vitamin D3) 1,000 Unit Tab PO SCH (08:49)
[2016-12-01] MEDS: FORTEO SUBCUT SCH (08:49)
[2016-12-01] MEDS: Losartan 50 MG Tab PO SCH (08:49)
[2016-12-01] MEDS: Aspirin 81 MG Tab.EC PO SCH (08:50)
[2016-12-01] MEDS: Metoprolol Succinate 25 MG Tab.ER PO SCH (08:50)
[2016-12-01] MEDS: ECHINACEA PO SCH (08:50)
[2016-12-01] MEDS: Multivitamins with Iron/Calcium/Folic Acid/Minerals Tab PO SCH (08:50)
[2016-12-01] MEDS: metFORMIN 500 MG Tab PO SCH ×2 (08:50→17:12)
[2016-12-01] MEDS: Calcium Carbonate/Vitamin D3 1250 MG-200 Unit Tab PO SCH (08:50)
[2016-12-01] MEDS: Magnesium Oxide 400 MG Tab PO SCH (08:50)
[2016-12-01] MEDS: POTASSIUM 99 MG PO SCH (08:51)
[2016-12-01] MEDS: SAW PALMETTO 1200 MG PO SCH (08:51)
[2016-12-01] MEDS: [UNRECOGNIZED DRUG - OTHER] PO SCH (08:51)
[2016-12-01] MEDS: Insulin Aspart 100 Units/ML 3 ML Pen SUBCUT SCH ×2 (11:10→17:12)
[2016-12-01] MEDS: Melatonin 3 MG Tab PO SCH (19:54)
[2016-12-02] MEDS: Timolol Maleate 0.5% Ophth Soln 5 ML Bottle EYEBOTH SCH ×2 (07:49→21:03)
[2016-12-02] MEDS: FORTEO SUBCUT SCH (07:49)
[2016-12-02] MEDS: Insulin Detemir 100 Units/ML 3 ML Pen SUBCUT SCH ×2 (07:49→21:02)
[2016-12-02] MEDS: Enoxaparin 40 MG/0.4 ML Syringe SUBCUT SCH (07:49)
[2016-12-02] MEDS: metFORMIN 500 MG Tab PO SCH ×2 (07:50→17:23)
[2016-12-02] MEDS: Losartan 50 MG Tab PO SCH (07:50)
[2016-12-02] MEDS: Simvastatin 10 MG Tab PO SCH (07:51)
[2016-12-02] MEDS: Furosemide 20 MG Tab PO SCH ×2 (07:51→16:21)
[2016-12-02] MEDS: Multivitamins with Iron/Calcium/Folic Acid/Minerals Tab PO SCH (07:51)
[2016-12-02] MEDS: Calcium Carbonate/Vitamin D3 1250 MG-200 Unit Tab PO SCH (07:51)
[2016-12-02] MEDS: Magnesium Oxide 400 MG Tab PO SCH (07:51)
[2016-12-02] MEDS: Aspirin 81 MG Tab.EC PO SCH (07:51)
[2016-12-02] MEDS: Tamsulosin 0.4 MG Cap.ER PO SCH (07:51)
[2016-12-02] MEDS: Cholecalciferol (Vitamin D3) 1,000 Unit Tab PO SCH (07:51)
[2016-12-02] MEDS: Metoprolol Succinate 25 MG Tab.ER PO SCH (07:51)
[2016-12-02] MEDS: ECHINACEA PO SCH (07:52)
[2016-12-02] MEDS: POTASSIUM 99 MG PO SCH (07:52)
[2016-12-02] MEDS: [UNRECOGNIZED DRUG - OTHER] PO SCH (07:52)
[2016-12-02] MEDS: SAW PALMETTO 1200 MG PO SCH (07:52)
[2016-12-02] MEDS: Insulin Aspart 100 Units/ML 3 ML Pen SUBCUT SCH ×2 (11:17→17:22)
[2016-12-02] MEDS: Melatonin 3 MG Tab PO SCH (21:08)
[2016-12-03] MEDS: Acetaminophen/HYDROcodone 325-5 MG Tab PO PRN ×2 (02:01→21:36)
[2016-12-03 07:02] LABS: CHLORIDE,CL 93 mmol/L (98-107)
[2016-12-03 07:09] LABS: SODIUM,NA 128 mmol/L (136-145)
[2016-12-03] MEDS: Metoprolol Succinate 25 MG Tab.ER PO SCH (08:19)
[2016-12-03] MEDS: Enoxaparin 40 MG/0.4 ML Syringe SUBCUT SCH (08:19)
[2016-12-03] MEDS: Aspirin 81 MG Tab.EC PO SCH (08:20)
[2016-12-03] MEDS: Losartan 50 MG Tab PO SCH (08:20)
[2016-12-03] MEDS: Tamsulosin 0.4 MG Cap.ER PO SCH (08:20)
[2016-12-03] MEDS: Cholecalciferol (Vitamin D3) 1,000 Unit Tab PO SCH (08:20)
[2016-12-03] MEDS: Multivitamins with Iron/Calcium/Folic Acid/Minerals Tab PO SCH (08:21)
[2016-12-03] MEDS: Calcium Carbonate/Vitamin D3 1250 MG-200 Unit Tab PO SCH (08:21)
[2016-12-03] MEDS: Simvastatin 10 MG Tab PO SCH (08:21)
[2016-12-03] MEDS: Furosemide 20 MG Tab PO SCH ×2 (08:21→18:09)
[2016-12-03] MEDS: metFORMIN 500 MG Tab PO SCH ×2 (08:22→18:07)
[2016-12-03] MEDS: Insulin Detemir 100 Units/ML 3 ML Pen SUBCUT SCH ×2 (08:22→21:34)
[2016-12-03] MEDS: SAW PALMETTO 1200 MG PO SCH (08:23)
[2016-12-03] MEDS: POTASSIUM 99 MG PO SCH (08:23)
[2016-12-03] MEDS: [UNRECOGNIZED DRUG - OTHER] PO SCH (08:23)
[2016-12-03] MEDS: Timolol Maleate 0.5% Ophth Soln 5 ML Bottle EYEBOTH SCH ×2 (08:23→21:35)
[2016-12-03] MEDS: ECHINACEA PO SCH (08:23)
[2016-12-03] MEDS: Magnesium Oxide 400 MG Tab PO SCH (08:23)
[2016-12-03] MEDS: FORTEO SUBCUT SCH (08:28)
[2016-12-03] MEDS: Insulin Aspart 100 Units/ML 3 ML Pen SUBCUT SCH ×2 (12:05→18:10)
[2016-12-03] MEDS: Melatonin 3 MG Tab PO SCH (21:36)
[2016-12-04 07:25] LABS: CHLORIDE,CL 92 mmol/L (98-107)
[2016-12-04 07:28] LABS: SODIUM,NA 127 mmol/L (136-145)
[2016-12-04] MEDS: Multivitamins with Iron/Calcium/Folic Acid/Minerals Tab PO SCH (07:57)
[2016-12-04] MEDS: Cholecalciferol (Vitamin D3) 1,000 Unit Tab PO SCH (07:57)
[2016-12-04] MEDS: Metoprolol Succinate 25 MG Tab.ER PO SCH (07:57)
[2016-12-04] MEDS: Simvastatin 10 MG Tab PO SCH (07:57)
[2016-12-04] MEDS: Aspirin 81 MG Tab.EC PO SCH (07:57)
[2016-12-04] MEDS: Magnesium Oxide 400 MG Tab PO SCH (07:58)
[2016-12-04] MEDS: Calcium Carbonate/Vitamin D3 1250 MG-200 Unit Tab PO SCH (07:58)
[2016-12-04] MEDS: Tamsulosin 0.4 MG Cap.ER PO SCH (07:58)
[2016-12-04] MEDS: Insulin Detemir 100 Units/ML 3 ML Pen SUBCUT SCH ×2 (07:58→20:15)
[2016-12-04] MEDS: Enoxaparin 40 MG/0.4 ML Syringe SUBCUT SCH (07:58)
[2016-12-04] MEDS: Losartan 50 MG Tab PO SCH (07:58)
[2016-12-04] MEDS: Furosemide 20 MG Tab PO SCH (07:58)
[2016-12-04] MEDS: metFORMIN 500 MG Tab PO SCH ×2 (07:58→17:14)
[2016-12-04] MEDS: ECHINACEA PO SCH (07:59)
[2016-12-04] MEDS: POTASSIUM 99 MG PO SCH (08:00)
[2016-12-04] MEDS: Timolol Maleate 0.5% Ophth Soln 5 ML Bottle EYEBOTH SCH ×2 (08:00→20:16)
[2016-12-04] MEDS: [UNRECOGNIZED DRUG - OTHER] PO SCH (08:00)
[2016-12-04] MEDS: SAW PALMETTO 1200 MG PO SCH (08:00)
[2016-12-04] MEDS: FORTEO SUBCUT SCH (08:10)
[2016-12-04] MEDS: Insulin Aspart 100 Units/ML 3 ML Pen SUBCUT SCH ×2 (12:11→17:13)
[2016-12-04] MEDS: Acetaminophen/HYDROcodone 325-5 MG Tab PO PRN (23:28)
[2016-12-04] MEDS: Acetaminophen 500 MG Tab PO PRN (23:28)
[2016-12-04] MEDS: Melatonin 3 MG Tab PO SCH (23:28)
[2016-12-05] MEDS: Magnesium Oxide 400 MG Tab PO SCH (07:53)
[2016-12-05] MEDS: Cholecalciferol (Vitamin D3) 1,000 Unit Tab PO SCH (07:53)
[2016-12-05] MEDS: Timolol Maleate 0.5% Ophth Soln 5 ML Bottle EYEBOTH SCH ×2 (07:53→21:54)
[2016-12-05] MEDS: Multivitamins with Iron/Calcium/Folic Acid/Minerals Tab PO SCH (07:53)
[2016-12-05] MEDS: Aspirin 81 MG Tab.EC PO SCH (07:53)
[2016-12-05] MEDS: Calcium Carbonate/Vitamin D3 1250 MG-200 Unit Tab PO SCH (07:53)
[2016-12-05] MEDS: Simvastatin 10 MG Tab PO SCH (07:54)
[2016-12-05] MEDS: Losartan 50 MG Tab PO SCH (07:54)
[2016-12-05] MEDS: Metoprolol Succinate 25 MG Tab.ER PO SCH (07:54)
[2016-12-05] MEDS: Tamsulosin 0.4 MG Cap.ER PO SCH (07:54)
[2016-12-05] MEDS: SAW PALMETTO 1200 MG PO SCH (07:55)
[2016-12-05] MEDS: metFORMIN 500 MG Tab PO SCH ×2 (07:55→17:32)
[2016-12-05] MEDS: POTASSIUM 99 MG PO SCH (07:56)
[2016-12-05] MEDS: Insulin Detemir 100 Units/ML 3 ML Pen SUBCUT SCH ×2 (07:56→20:16)
[2016-12-05] MEDS: ECHINACEA PO SCH (07:56)
[2016-12-05] MEDS: [UNRECOGNIZED DRUG - OTHER] PO SCH (07:57)
[2016-12-05] MEDS: FORTEO SUBCUT SCH (08:03)
--- NOTE | 2016-12-05 08:58 | PN ---
Progress Note for CARLOTA CARRINGTON Date: 12/04/2016 Room #: VM.202 SUBJECTIVE: This is an 81-year-old, on swing bed after a left hip fracture. The patient is having more pain lower in his thigh. He had Lovenox held for 2 days. Previously there was a lot of bruising, mild hematoma in place. Therefore, we discussed holding Lovenox again. He is not feeling lightheaded or dizzy. He has been getting Lasix. His leg swelling is better. He is wearing his support stockings. Otherwise, he is taking about 1 pain pill per day usually in the evening and as many as 2. Otherwise, his sodium was found to be low this week when lab work was done for monitoring of Forteo. He is drinking about 2 L of water. We did discuss with him switching over to Gatorade and he is agreeable to that. He is not having any shortness of breath or cough. OBJECTIVE: Vital Signs: His temperature is 97.6, pulse 80, blood pressure 105/56, respiratory rate 18, and O2 of 97% on room air. General: He is in no acute distress. Heart: Regular rate and rhythm. Lungs: Sounds are clear to auscultation bilaterally without crackles or wheezes. Abdomen: Positive bowel sounds. Soft and nontender. Extremities: Warm and dry. There is trace edema in both legs. Homans sign negative. He has bruising extending down into the lateral thigh and even garcia area. There is some firmness, but no significant warmth right above the knee. Mental Status: Otherwise, alert and orientated x3. ASSESSMENT AND PLAN: 1. Left hip fracture, status post ORIF. He is planning for discharge on per PT. They feel he can transition to Home Health and Home PT. 2. Left thigh hematoma, not completely resolved. I am going to hold Lovenox again the next 2 days and see how it looks on discharge. 3. Postoperative anemia. Hemoglobin will be repeated tomorrow. He has not required transfusions. 4. Type 2 diabetes, well controlled. We will continue to monitor Accu-Chek. 5. Essential hypertension. Blood pressure is running lower. We will hold the Lasix. 6. Hyponatremia. We will limit free water intake and have him try some sugar free Gatorade or Powerade. 7. History of coronary artery disease. 8. Osteoporosis with bilateral hip fractures in the past year. He is on Forteo and we will go ahead and order that through his local pharmacy, so hopefully he can continue it when he goes home. PLAN: Hold Lovenox. Hold Lasix. Lab work again and plan for discharge then. MKA: 12/05/2016 08:41:09 MODL: 12/05/2016 08:52:56 /[id number]
[2016-12-05] MEDS: Insulin Aspart 100 Units/ML 3 ML Pen SUBCUT SCH ×2 (12:09→17:30)
[2016-12-05] MEDS: Acetaminophen/HYDROcodone 325-5 MG Tab PO PRN (21:52)
[2016-12-05] MEDS: Acetaminophen 500 MG Tab PO PRN (21:54)
[2016-12-05] MEDS: Melatonin 3 MG Tab PO SCH (21:54)
[2016-12-06 07:06] LABS: CHLORIDE,CL 92 mmol/L (98-107)
[2016-12-06 07:08] LABS: SODIUM,NA 127 mmol/L (136-145)
[2016-12-06] MEDS: Insulin Detemir 100 Units/ML 3 ML Pen SUBCUT SCH (08:04)
[2016-12-06] MEDS: Timolol Maleate 0.5% Ophth Soln 5 ML Bottle EYEBOTH SCH (08:04)
[2016-12-06] MEDS: Cholecalciferol (Vitamin D3) 1,000 Unit Tab PO SCH (08:05)
[2016-12-06] MEDS: Multivitamins with Iron/Calcium/Folic Acid/Minerals Tab PO SCH (08:05)
[2016-12-06] MEDS: Magnesium Oxide 400 MG Tab PO SCH (08:05)
[2016-12-06] MEDS: Aspirin 81 MG Tab.EC PO SCH (08:05)
[2016-12-06] MEDS: Simvastatin 10 MG Tab PO SCH (08:05)
[2016-12-06] MEDS: Losartan 50 MG Tab PO SCH (08:06)
[2016-12-06] MEDS: Metoprolol Succinate 25 MG Tab.ER PO SCH (08:06)
[2016-12-06] MEDS: metFORMIN 500 MG Tab PO SCH (08:06)
[2016-12-06] MEDS: ECHINACEA PO SCH (08:07)
[2016-12-06] MEDS: FORTEO SUBCUT SCH (08:07)
[2016-12-06] MEDS: Calcium Carbonate/Vitamin D3 1250 MG-200 Unit Tab PO SCH (08:07)
[2016-12-06] MEDS: [UNRECOGNIZED DRUG - OTHER] PO SCH (08:07)
[2016-12-06] MEDS: Tamsulosin 0.4 MG Cap.ER PO SCH (08:07)
[2016-12-06 08:08] VITALS: BP 132/71
[2016-12-06] MEDS: SAW PALMETTO 1200 MG PO SCH (08:08)
[2016-12-06] MEDS: POTASSIUM 99 MG PO SCH (08:08)
[2016-12-06] MEDS: Insulin Aspart 100 Units/ML 3 ML Pen SUBCUT SCH (12:40)
--- NOTE | 2016-12-07 08:44 | DISCH ---
PRIMARY DISCHARGE DIAGNOSES: 1. Left hip intertrochanteric fracture status post ORIF. 2. Left thigh hematoma due to Lovenox with Lovenox holding for 2 days on 2 separate occasions, but resumed on discharge. 3. Postoperative anemia, not requiring transfusion with hemoglobin stable at 10.7 on discharge. 4. Type 2 diabetes, well controlled. 5. Hyponatremia, felt to be due to increased water intake. Lasix was held due to blood pressures running low around 100. 6. Essential hypertension. 7. History of coronary artery disease. 8. Osteoporosis with previous hip fracture 1 year ago on the right. He is tolerating Forteo with repeat calcium levels okay. 9. History of reactive airway disease, not asthma. 10.Diabetic neuropathy, glaucoma, previous GI bleeding from duodenal ulcer, hyperlipidemia, gastroesophageal reflux disease, erectile dysfunction, obesity, hypertriglyceridemia, diffuse idiopathic skeletal hyperostosis, B12 deficiency, benign prostatic hypertrophy, chronic diastolic heart failure stable without exacerbation, and peripheral vascular disease. REASON FOR ADMISSION: On the date of admission, this 81-year-old had fallen when he was trying to sit down, broke his hip, went to [place], underwent surgery. He did well postoperatively. He was discharged for further therapies. He had therapies here, which he did well. He had some increasing pain over the left hip and thigh area. There was noted to be a significant amount of bruising. It was firm like hematoma. Lovenox was held for couple of days and resumed and then held again most recently on 12/05 and today. Otherwise, sodium level was found to be low at 128 when the repeat lab work was done for Forteo monitoring. It was repeated and found to be 127. We did give him sugar-free electrolyte drinks like Gatorade. He did not like the taste of it that well. He was found to be drinking a significant amount of water. On discharge, sodium was still stable at 127, but he was not having any symptoms. Therefore, followup BMP was arranged prior to his appointment with Dr. Zelaya on 01/02. None of his medications were felt to cause the low sodium other than potentially the Lasix and his blood pressures were running lower, so that was held. He had recently went up to twice daily as an outpatient to help with leg swelling. He was not always compliant with wearing his [place] stockings but was agreeable to use them when he was off the Lovenox. DISCHARGE PHYSICAL EXAMINATION: VITAL SIGNS: Discharge vitals include a temperature of 97.6, pulse 77, blood pressure 126/71, respiratory rate 20, O2 of 97% on room air. GENERAL: He is in no acute distress. HEART: Regular rate and rhythm. S1 and S2 without murmur. LUNGS: Sounds are clear to auscultation bilaterally without crackles or wheezes. EXTREMITIES: Warm and dry. He has good color and warmth to his distal extremities. No calf tenderness. No leg edema. He has bruising that extends down to his distal thigh, but it is softer than when examined 2 days previous. It is mildly tender. His incision is well healing, clean, and intact without surrounding redness or warmth. MENTAL STATUS: He is alert and orientated x3. DISCHARGE PLANS/INSTRUCTIONS: He will follow up in the clinic with Dr. Zelaya on 01/02. He will be followed by home health. Lasix will be 20 mg daily. He will continue on Forteo. No insulin changes were made during his stay. He is having bowel movements about every other day. He is on stool softeners. He was encouraged to use less hydrocodone, so he will try to stick to just 1 at night and hopefully stop it all completely. Otherwise, 30 pills of [place] was prescribed. A new prescription for 7 Lovenox was prescribed to resume on 12/08 for 1 more week. He will hold his aspirin until he finishes 1 week of Lovenox and then he will resume 325 daily. Home health is needed to teach and assess the patient who had a new left hip fracture and will need nursing to monitor medication changes as well as draw lab work as patient is homebound due to impaired mobility from the hip fracture. He requires assistance of another to leave his home. He will have home physical therapy following with him as well. He will need also nursing to monitor for signs of bleeding especially with the left hip. Hdes-ps-ufrw encounter occurred on 12/06. I will periodically review his plan of care. MICHAEL: 12/06/2016 09:08:51 MODL: 12/06/2016 23:44:08 /[id number] DERIC
== END 2016-12-06 12:45 | disposition home health service (06) | DRG 559 ==
LOC: VM.MS 11:18
PROVIDERS: ADMIT Internal Medicine; ATTEND Internal Medicine
DX: Z47.89 Encounter for other orthopedic aftercare (principal); S72.142A Displaced intertrochanteric fracture of left femur, initial encounter for closed fracture; E87.1 Hypo-osmolality and hyponatremia; I25.810 Atherosclerosis of coronary artery bypass graft(s) without angina pectoris; I50.32 Chronic diastolic (congestive) heart failure; M85.80 Other specified disorders of bone density and structure, unspecified site; W18.30XA Fall on same level, unspecified, initial encounter; D50.0 Iron deficiency anemia secondary to blood loss (chronic); E11.40 Type 2 diabetes mellitus with diabetic neuropathy, unspecified; Z79.4 Long term (current) use of insulin; I11.0 Hypertensive heart disease with heart failure; K21.9 Gastro-esophageal reflux disease without esophagitis; E66.9 Obesity, unspecified; N52.9 Male erectile dysfunction, unspecified; N40.0 Benign prostatic hyperplasia without lower urinary tract symptoms; E78.1 Pure hyperglyceridemia; E53.8 Deficiency of other specified B group vitamins; Z79.01 Long term (current) use of anticoagulants; Z79.899 Other long term (current) drug therapy; Z88.8 Allergy status to other drugs, medicaments and biological substances; H40.9 Unspecified glaucoma
CPT/HCPCS: 36415; 80048; 82962; 85025; 97110-GP; 97116-GP; 97161-GP; 97165-GO; 97530-GP; 97535-GO; A9270-GY; J1650; J1815-GY

== ENCOUNTER 2018-12-11 07:53 | Emergency (ER) | payer MEDICARE, OTHER, MEDICAID ==
[2018-12-11] MEDS ORDERED: Sodium Chloride 0.9% 10 ML Syringe FLUSH PRN (08:12)
[2018-12-11] MEDS ORDERED: Ondansetron 4 MG/2 ML SDV IVPUSH ONE (08:12)
[2018-12-11] MEDS ORDERED: Pantoprazole 40 MG Vial IVPUSH ONE (08:12)
[2018-12-11] MEDS ORDERED: Sodium Chloride 0.9% 1,000 ML IV SCH (08:15)
[2018-12-11 09:17] LABS: ANION GAP 14.8 mmol/L (10-20); CHLORIDE,CL 100 mmol/L (98-107); SODIUM,NA 136 mmol/L (136-145)
--- NOTE | 2018-12-11 09:22 | EDM.PDOC ---
ED HPI GENERAL MEDICAL PROBLEM - General Chief Complaint: Gastrointestinal Problem Stated Complaint: THROWING UP BLOOD AND WEAK Time Seen by Provider: 12/11/18 08:10 Source of Information: Reports: Patient History Limitations: Reports: No Limitations - History of Present Illness INITIAL COMMENTS - FREE TEXT/NARRATIVE: Patient reports vomiting black tarry emesis that started last night at 0100. He does state he has had a history of bleeding ulcer for which he received blood. He is currently nauseated now. He does have to be what looks like blood spatter on his lower pants legs from prior emesis. He denies headache, chest pain, SOB, but does endorse feeling weak and having abdominal pain. He denies any bloody stools or blood in his urine. No bright ambika blood. 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 He denies being on anticoagulation. he does take aspirin. Denies chest tightness, denies any neck, shoulder, back , or arm pain. Onset: Today, Sudden Duration: Intermittent Location: Reports: Abdomen Associated Symptoms: Reports: Nausea/Vomiting - Related Data Allergies Allergy/AdvReac Type Severity Reaction Status Date / Time Beta-Blockers Allergy Other Verified 12/11/18 09:03 (Beta-Adrenergic Bloc Home Meds: Home Meds Losartan [Cozaar] 100 mg PO DAILY 01/25/14 [History] Magnesium Oxide 400 mg PO DAILY 01/25/14 [History] Metoprolol Succinate [Toprol XL] 25 mg PO DAILY 01/25/14 [History] Timolol Maleate [Timoptic 0.5% Ocudose] 1 drop EYEBOTH BID 01/25/14 [History] Insulin Lispro [Humalog] 3 unit SQ DAILY@1200 02/26/14 [History] Echinacea 1 tab PO DAILY 12/09/15 [History] Acetaminophen 500 - 1,000 mg PO Q6H PRN 11/15/16 [History] Multivitamin [Daily Multiple Vitamin] 1 tab PO DAILY 11/20/16 [History] Potassium 99 mg PO DAILY 11/20/16 [History] Tamsulosin [Flomax] 0.4 mg PO DAILY 11/20/16 [History] Ubidecarenone [Co Q-10] 200 mg PO DAILY 11/20/16 [History] Aspirin 325 mg PO DAILY #0 12/06/16 [Rx] Furosemide [Lasix] 20 mg PO DAILY #30 tablet 12/06/16 [Rx] Calcium Carb & Citrate/Vit D3 [Citracal + D ER] 1 each PO DAILY 06/04/18 [ History] Celecoxib 1 tab PO DAILY 06/04/18 [History] Cholecalciferol (Vitamin D3) [Vitamin D3] 3,000 unit PO DAILY 06/04/18 [History] Lactobacillus Combination No.4 [Probiotic] 1 each PO DAILY 06/04/18 [History] Lactobacillus Combination No.4 [Probiotic] 1 each PO DAILY 06/04/18 [History] MV/K/O3/D3/Mag/C/Ala/Grn T/Chr [Diabetes Health Pack] 1 each PO DAILY 06/04/18 [ History] Non-Formulary Medication [NF Drug] 1 tab PO DAILY 06/04/18 [History] [place]-3 Fatty Acids [[place]-3] 100 mg PO DAILY 06/04/18 [History] Turmeric Root Extract [Turmeric] 1,500 mg PO DAILY 06/04/18 [History] Vitamin E(Dl-Alpha Tocopherol) [Alpha Tocopherol] 400 units PO DAILY 06/04/18 [ History] Zinc 50 mg PO DAILY 06/04/18 [History] atorvaSTATin [Lipitor] 20 mg PO DAILY 06/04/18 [History] Cefuroxime Axetil [Ceftin] 500 mg PO BID #8 tablet 06/06/18 [Rx] Insulin Glarg,Human.Rec.Analog [Lantus Solostar] 10 units SUBCUT BEDTIME #1 pen 06/06/18 [Rx] Insulin Glarg,Human.Rec.Analog [Lantus Solostar] 15 units SUBCUT DAILY #1 pen [Rx] Potassium Chloride [Klor-Con 10] 20 meq PO BIDMEALS #16 tab.er 06/06/18 [Rx] Past Medical History HEENT History: Reports: Cataract, Glaucoma Other HEENT History: chest pain Cardiovascular History: Reports: CAD, High Cholesterol, Hypertension Other Cardiovascular History: ELEVATED LFTS Respiratory History: Reports: Asthma Other Gastrointestinal History: abd. pain, DUODENAL ULCER, Genitourinary History: Reports: BPH Other Genitourinary History: ED Musculoskeletal History: Reports: Osteoarthritis Other Musculoskeletal History: DISH (diffuse idiopathic skeletal hypertrophy) Neurological History: Reports: Neuropathy, Diabetic Endocrine/Metabolic History: Reports: Diabetes, Type II Other Endocrine/Metabolic History: pure hyperglyceridemea Hematologic History: Reports: Anemia, B12 Deficiency Other Hematologic History: elevated LFTs (Liver function tests) - Past Surgical History HEENT Surgical History: Reports: Adenoidectomy, Cataract Surgery, Tonsillectomy Cardiovascular Surgical History: Reports: Coronary Artery Bypass Musculoskeletal Surgical History: Reports: Other (See Below) Social & Family History - Caffeine Use Caffeine Use: Reports: Coffee, Soda ED ROS GENERAL - Review of Systems Review Of Systems: See Below Constitutional: Reports: Weakness HEENT: Reports: No Symptoms Respiratory: Reports: No Symptoms Cardiovascular: Reports: No Symptoms Endocrine: Reports: No Symptoms GI/Abdominal: Reports: Melena, Nausea, Vomiting : Reports: No Symptoms Musculoskeletal: Reports: No Symptoms Skin: Reports: No Symptoms Neurological: Reports: No Symptoms Psychiatric: Reports: No Symptoms Hematologic/Lymphatic: Reports: No Symptoms Immunologic: Reports: No Symptoms ED EXAM, GI/ABD - Physical Exam Exam: See Below Exam Limited By: No Limitations General Appearance: Alert, WD/WN, No Apparent Distress Eyes: Bilateral: Normal Appearance, EOMI Ears: Normal External Exam, Normal Canal, Normal TMs, Hearing Loss (wears bilateral hearing aids) Nose: Normal Inspection, Normal Mucosa, No Blood Throat/Mouth: Normal Inspection, Normal Lips, Normal Teeth, Normal Gums, Normal Oropharynx, Normal Voice, No Airway Compromise Head: Atraumatic, Normocephalic Neck: Normal Inspection, Supple, Non-Tender, Full Range of Motion Respiratory/Chest: No Respiratory Distress, Lungs Clear, Normal Breath Sounds, No Accessory Muscle Use, Chest Non-Tender Cardiovascular: Normal Peripheral Pulses, Regular Rate, Rhythm, No Edema, No Gallop, No JVD, No Murmur, No Rub GI/Abdominal Exam: Normal Bowel Sounds, Soft, Non-Tender, No Organomegaly, No Distention Back Exam: Normal Inspection, Full Range of Motion, NT Extremities: Normal Inspection, Normal Range of Motion, Non-Tender, Normal Capillary Refill, No Pedal Edema Neurological: Alert, Oriented, CN II-XII Intact, Normal Cognition, Normal Gait, Normal Reflexes, No Motor/Sensory Deficits Psychiatric: Normal Affect, Normal Mood Skin Exam: Warm, Dry, Intact, Normal Color, No Rash Lymphatic: No Adenopathy Course - Vital Signs Last Recorded V/S: Last Vital Signs Temp 35.4 C 12/11/18 08:00 Pulse 78 12/11/18 12:24 Resp 16 12/11/18 12:24 BP 132/80 12/11/18 12:24 Pulse Ox 99 12/11/18 12:24 - Orders/Labs/Meds Orders: Active Orders 24 hr Category Date Time Status FECAL OCCULT BLOOD,POC DIAG [POC] Urgent Lab 12/11/18 08:13 Ordered GASTRO OCCULT BLOOD,POC [POC] Urgent Lab 12/11/18 08:13 Ordered Sodium Chloride 0.9% [Normal Saline] 1,000 ml Med 12/11/18 08:15 Active IV ASDIRECTED Sodium Chloride 0.9% [Saline Flush] Med 12/11/18 08:12 Active 10 ml FLUSH ASDIRECTED PRN Saline Lock Insert [OM.PC] Routine Oth 12/11/18 08:12 Ordered Medication Orders Sodium Chloride (Normal Saline) 1,000 mls @ 999 mls/hr IV ASDIRECTED COOKIE Last Admin: 12/11/18 08:30 Dose: 999 mls/hr Sodium Chloride (Saline Flush) 10 ml FLUSH ASDIRECTED PRN PRN Reason: Keep Vein Open Labs: Laboratory Tests 12/11/18 12/11/18 Range/Units 08:30 08:30 WBC 10.6 H (4.0-10.0) x10^3/uL RBC 3.58 L (4.5-6.0) x10^6/uL Hgb 11.7 L (14.0-18.0) g/dL Hct 35.2 L (40.0-52.0) % MCV 98.3 H D (78.0-93.0) fL MCH 32.7 H (26.0-32.0) pg MCHC 33.2 (32.0-36.0) g/dL RDW Coeff of Taz 12.4 (10.0-15.0) % Plt Count 251 D (130-400) x10^3/uL Neut % (Auto) Insurance Underwriting Assistant Lymph % (Auto) Insurance Underwriting Assistant [place] % (Auto) Insurance Underwriting Assistant Eos % (Auto) Insurance Underwriting Assistant Baso % (Auto) Insurance Underwriting Assistant Add Manual Diff Yes Neutrophils % (Manual) 80 (50-80) % Lymphocytes % (Manual) 12 L (25-50) % Monocytes % (Manual) 6 (2-11) % Eosinophils % (Manual) 1 (0-4) % Myelocytes % 1 H (0) % Platelet Estimate Adequate Sodium 136 (136-145) mmol/L Potassium 4.8 D (3.5-5.1) mmol/L Chloride 100 (98-107) mmol/L Carbon Dioxide 26 (21-32) mmol/L Anion Gap 14.8 (10-20) mmol/L BUN 37 H (7-18) mg/dL Creatinine 1.0 (0.70-1.30) mg/dL Est Cr Clr Drug Dosing TNP Estimated GFR (MDRD) > 60 Glucose 157 H (74-106) mg/dL Calcium 8.2 L (8.5-10.1) mg/dL Corrected Calcium 9.08 (8.5-10.1) mg/dL Magnesium 1.8 (1.8-2.4) mg/dL Total Bilirubin 0.6 (0.2-1.0) mg/dL AST 30 (15-37) U/L ALT 48 (16-63) U/L Alkaline Phosphatase 132 H (46-116) U/L Creatine Kinase 141 (39-308) U/L C-Reactive Protein 0.7 (<=0.9) mg/dL NT-Pro-B Natriuret Pep 725 H (<=450) pg/mL Total Protein 6.4 (6.4-8.2) g/dL Albumin 2.9 L (3.4-5.0) g/dL Globulin 3.5 Albumin/Globulin Ratio 0.83 Amylase 29 (25-115) U/L Lipase 27 L (73-393) U/L TSH, Ultra Sensitive 3.601 (0.358-3.74) uIU/mL Meds: Medications Generic Name Dose Route Start Last Admin Trade Name Freq PRN Reason Stop Dose Admin Sodium Chloride 1,000 mls @ 999 mls/hr 12/11/18 08:15 12/11/18 08:30 Normal Saline IV 999 mls/hr ASDIRECTED COOKIE Administration Sodium Chloride 10 ml 12/11/18 08:12 Saline Flush FLUSH ASDIRECTED PRN Keep Vein Open Discontinued Medications Generic Name Dose Route Start Last Admin Trade Name Freq PRN Reason Stop Dose Admin Ondansetron HCl 4 mg 12/11/18 08:12 12/11/18 08:38 Zofran IVPUSH 12/11/18 08:13 4 mg ONETIME ONE Administration Pantoprazole Sodium 40 mg 12/11/18 08:12 12/11/18 08:40 Protonix Iv IVPUSH 12/11/18 08:13 40 mg ONETIME ONE Administration Departure - Departure Time of Disposition: 13:00 Disposition: DC/Tfer to Acute Hospital 02 Condition: Fair Clinical Impression: GI bleeding - Discharge Information *PRESCRIPTION DRUG MONITORING PROGRAM REVIEWED*: Not Applicable *COPY OF PRESCRIPTION DRUG MONITORING REPORT IN PATIENT RAJANI: Not Applicable Forms: ED Department Discharge, Interfacility Transfer EMTALA ED Communication - ED Communication Date/Time Date: 12/11/18 Time Called: 09:55 - Discussed Case With (1) Discussed Case With (1): Admitting Provider (Dr. Goodman given report at [facility] in [place]. He will accept transfer and care of the patient.) - My Orders Last 24 Hours: My Active Orders 12/11/18 08:12 Sodium Chloride 0.9% [Saline Flush] 10 ml FLUSH ASDIRECTED PRN Saline Lock Insert [OM.PC] Routine 12/11/18 08:13 FECAL OCCULT BLOOD,POC DIAG [POC] Urgent GASTRO OCCULT BLOOD,POC [POC] Urgent 12/11/18 08:15 Sodium Chloride 0.9% [Normal Saline] 1,000 ml IV ASDIRECTED - Assessment/Plan Last 24 Hours: My Active Orders 12/11/18 08:12 Sodium Chloride 0.9% [Saline Flush] 10 ml FLUSH ASDIRECTED PRN Saline Lock Insert [OM.PC] Routine 12/11/18 08:13 FECAL OCCULT BLOOD,POC DIAG [POC] Urgent GASTRO OCCULT BLOOD,POC [POC] Urgent 12/11/18 08:15 Sodium Chloride 0.9% [Normal Saline] 1,000 ml IV ASDIRECTED
[2018-12-11 13:24] VITALS: BP 132/80
== END 2018-12-11 12:50 | disposition short-term general hospital (02) ==
LOC: VM.ED 07:53
DX: K92.2 Gastrointestinal hemorrhage, unspecified (principal); I10 Essential (primary) hypertension; E78.00 Pure hypercholesterolemia, unspecified; E11.40 Type 2 diabetes mellitus with diabetic neuropathy, unspecified; J45.909 Unspecified asthma, uncomplicated; I25.10 Atherosclerotic heart disease of native coronary artery without angina pectoris; Z79.4 Long term (current) use of insulin; Z79.899 Other long term (current) drug therapy; Z88.8 Allergy status to other drugs, medicaments and biological substances
CPT/HCPCS: 36415; 80053; 82150; 82550; 83690; 83735; 83880; 84443; 85025; 86140; 96361; 96374; 96375; 99285-25; C9113; J2405; J7030

== ENCOUNTER 2018-12-14 11:03 | Emergency (ER) | payer MEDICARE, OTHER, MEDICAID ==
[2018-12-14 11:57] LABS: CHLORIDE,CL 98 mmol/L (98-107); SODIUM,NA 134 mmol/L (136-145)
[2018-12-14 12:01] LABS: ANION GAP 14.3 mmol/L (10-20)
[2018-12-14 12:14] VITALS: BP 117/57
[2018-12-14] MEDS ORDERED: Take Home: Ciprofloxacin 500 MG Tab, 2 Tab Pack PO ONE (12:33)
--- NOTE | 2018-12-15 05:58 | EDM.PDOC ---
ED HPI GENERAL MEDICAL PROBLEM - General Chief Complaint: Genitourinary Problem Stated Complaint: UTI Time Seen by Provider: 12/14/18 11:15 Source of Information: Reports: Patient History Limitations: Reports: No Limitations - History of Present Illness INITIAL COMMENTS - FREE TEXT/NARRATIVE: Pt. presents to ER with complaints of hematuria. He states that he noticed blood in his urine this AM. He states that he is also experiencing urinary frequency and urgency as well. Denies any fever or chills. He states that he was recently discharged from [facility] in [place]. He states that he did not have any urinary catheter placed during his hospitalization. Pt. denies any back pain. No chest pain or shortness of breath. No nausea, vomiting, or diarrhea. No headache, palpitations, or lightheadedness. Onset: Today Headache Pain Score (Numeric/FACES): 3 - Related Data Allergies Allergy/AdvReac Type Severity Reaction Status Date / Time Beta-Blockers Allergy Other Verified 12/14/18 12:14 (Beta-Adrenergic Bloc Home Meds: Home Meds Losartan [Cozaar] 100 mg PO DAILY 01/25/14 [History] Magnesium Oxide 400 mg PO DAILY 01/25/14 [History] Metoprolol Succinate [Toprol XL] 25 mg PO DAILY 01/25/14 [History] Timolol Maleate [Timoptic 0.5% Ocudose] 1 drop EYEBOTH BID 01/25/14 [History] Insulin Lispro [Humalog] 3 unit SQ DAILY@1200 02/26/14 [History] Echinacea 1 tab PO DAILY 12/09/15 [History] Acetaminophen 500 - 1,000 mg PO Q6H PRN 11/15/16 [History] Multivitamin [Daily Multiple Vitamin] 1 tab PO DAILY 11/20/16 [History] Potassium 99 mg PO DAILY 11/20/16 [History] Tamsulosin [Flomax] 0.4 mg PO DAILY 11/20/16 [History] Ubidecarenone [Co Q-10] 200 mg PO DAILY 11/20/16 [History] Aspirin 325 mg PO DAILY #0 12/06/16 [Rx] Furosemide [Lasix] 20 mg PO DAILY #30 tablet 12/06/16 [Rx] Calcium Carb & Citrate/Vit D3 [Citracal + D ER] 1 each PO DAILY 06/04/18 [ History] Celecoxib 1 tab PO DAILY 06/04/18 [History] Cholecalciferol (Vitamin D3) [Vitamin D3] 3,000 unit PO DAILY 06/04/18 [History] Lactobacillus Combination No.4 [Probiotic] 1 each PO DAILY 06/04/18 [History] Lactobacillus Combination No.4 [Probiotic] 1 each PO DAILY 06/04/18 [History] MV/K/O3/D3/Mag/C/Ala/Grn T/Chr [Diabetes Health Pack] 1 each PO DAILY 06/04/18 [ History] Non-Formulary Medication [NF Drug] 1 tab PO DAILY 06/04/18 [History] [place]-3 Fatty Acids [[place]-3] 100 mg PO DAILY 06/04/18 [History] Turmeric Root Extract [Turmeric] 1,500 mg PO DAILY 06/04/18 [History] Vitamin E(Dl-Alpha Tocopherol) [Alpha Tocopherol] 400 units PO DAILY 06/04/18 [ History] Zinc 50 mg PO DAILY 06/04/18 [History] atorvaSTATin [Lipitor] 20 mg PO DAILY 06/04/18 [History] Cefuroxime Axetil [Ceftin] 500 mg PO BID #8 tablet 06/06/18 [Rx] Insulin Glarg,Human.Rec.Analog [Lantus Solostar] 10 units SUBCUT BEDTIME #1 pen 06/06/18 [Rx] Insulin Glarg,Human.Rec.Analog [Lantus Solostar] 15 units SUBCUT DAILY #1 pen [Rx] Potassium Chloride [Klor-Con 10] 20 meq PO BIDMEALS #16 tab.er 06/06/18 [Rx] Past Medical History HEENT History: Reports: Cataract, Glaucoma Other HEENT History: chest pain Cardiovascular History: Reports: CAD, High Cholesterol, Hypertension Other Cardiovascular History: ELEVATED LFTS Respiratory History: Reports: Asthma Gastrointestinal History: Reports: GI Bleed, Other (See Below) Other Gastrointestinal History: abd. pain, DUODENAL ULCER, esophageal tear Genitourinary History: Reports: BPH Other Genitourinary History: ED Musculoskeletal History: Reports: Osteoarthritis Other Musculoskeletal History: DISH (diffuse idiopathic skeletal hypertrophy) Neurological History: Reports: Neuropathy, Diabetic Endocrine/Metabolic History: Reports: Diabetes, Type II Other Endocrine/Metabolic History: pure hyperglyceridemea Hematologic History: Reports: Anemia, B12 Deficiency Other Hematologic History: elevated LFTs (Liver function tests) - Past Surgical History HEENT Surgical History: Reports: Adenoidectomy, Cataract Surgery, Tonsillectomy Cardiovascular Surgical History: Reports: Coronary Artery Bypass Musculoskeletal Surgical History: Reports: Other (See Below) Social & Family History - Tobacco Use Smoking Status *Q: Former Smoker Used Tobacco, but Quit: Yes Month/Year Tobacco Last Used: 30 years ago - Caffeine Use Caffeine Use: Reports: Coffee, Soda ED ROS GENERAL - Review of Systems Review Of Systems: See Below Constitutional: Reports: No Symptoms HEENT: Reports: No Symptoms Respiratory: Reports: No Symptoms Cardiovascular: Reports: No Symptoms Endocrine: Reports: No Symptoms GI/Abdominal: Reports: No Symptoms : Reports: Frequency, Hematuria, Urgency Musculoskeletal: Reports: No Symptoms Skin: Reports: No Symptoms Neurological: Reports: No Symptoms Psychiatric: Reports: No Symptoms Hematologic/Lymphatic: Reports: No Symptoms Immunologic: Reports: No Symptoms ED EXAM, GENERAL - Physical Exam Exam: See Below Exam Limited By: No Limitations General Appearance: Alert, WD/WN, No Apparent Distress Head: Atraumatic, Normocephalic Neck: Normal Inspection, Supple, Non-Tender, Full Range of Motion Respiratory/Chest: No Respiratory Distress, Lungs Clear, Normal Breath Sounds, No Accessory Muscle Use, Chest Non-Tender Cardiovascular: Normal Peripheral Pulses, Regular Rate, Rhythm, No Edema, No Gallop, No JVD, No Murmur, No Rub Peripheral Pulses: 4+: Radial (R) GI/Abdominal: Normal Bowel Sounds, Soft, Non-Tender, No Organomegaly, No Distention, No Abnormal Bruit, No Mass, Pelvis Stable (Male) Exam: No Hernia, Normal Inspection, Other (Hematuria noted. ) Rectal (Males) Exam: Deferred Back Exam: Normal Inspection, Full Range of Motion Extremities: Normal Inspection, Normal Range of Motion, Non-Tender, No Pedal Edema, Normal Capillary Refill Neurological: Alert, Oriented, CN II-XII Intact, Normal Cognition, Normal Gait, Normal Reflexes, No Motor/Sensory Deficits Psychiatric: Normal Affect, Normal Mood Skin Exam: Warm, Dry, Intact, Normal Color, No Rash Lymphatic: No Adenopathy Course - Vital Signs Last Recorded V/S: Last Vital Signs Temp 36.9 C 12/14/18 11:15 Pulse 76 12/14/18 11:15 Resp 16 12/14/18 11:15 BP 117/57 L 12/14/18 11:15 Pulse Ox 98 12/14/18 11:15 - Orders/Labs/Meds Labs: Laboratory Tests 12/14/18 12/14/18 12/14/18 Range/Units 11:31 11:31 11:31 WBC 11.9 H (4.0-10.0) x10^3/uL RBC 2.74 L (4.5-6.0) x10^6/uL Hgb 9.1 L D (14.0-18.0) g/dL Hct 27.0 L (40.0-52.0) % MCV 98.5 H (78.0-93.0) fL MCH 33.2 H (26.0-32.0) pg MCHC 33.7 (32.0-36.0) g/dL RDW Coeff of Taz 12.1 (10.0-15.0) % Plt Count 185 (130-400) x10^3/uL Neut % (Auto) 85.1 H (50.0-80.0) % Lymph % (Auto) 6.5 L (25.0-50.0) % [place] % (Auto) 7.9 (2.0-11.0) % Eos % (Auto) 0.3 (0.0-4.0) % Baso % (Auto) 0.2 (0.2-1.2) % PT 11.4 (10.0-12.8) SEC INR 1.0 L (2.0-3.5) APTT (24.0-36.0) SEC Sodium 134 L (136-145) mmol/L Potassium 4.3 (3.5-5.1) mmol/L Chloride 98 (98-107) mmol/L Carbon Dioxide 26 (21-32) mmol/L Anion Gap 14.3 (10-20) mmol/L BUN 14 (7-18) mg/dL Creatinine 1.0 (0.70-1.30) mg/dL Est Cr Clr Drug Dosing 40.68 mL/min Estimated GFR (MDRD) > 60 Glucose 151 H (74-106) mg/dL Calcium 8.2 L (8.5-10.1) mg/dL Corrected Calcium 9.00 (8.5-10.1) mg/dL Total Bilirubin 1.0 (0.2-1.0) mg/dL AST 32 (15-37) U/L ALT 41 (16-63) U/L Alkaline Phosphatase 104 (46-116) U/L Total Protein 6.5 (6.4-8.2) g/dL Albumin 3.0 L (3.4-5.0) g/dL Globulin 3.5 Albumin/Globulin Ratio 0.86 Urine Color (YELLOW) Urine Appearance (CLEAR) Urine pH (5.0-8.0) Ur Specific [place] Urine Protein (NEGATIVE) mg/dL Urine Glucose (UA) (NEGATIVE) mg/dL Urine Ketones (NEGATIVE) mg/dL Urine Occult Blood (NEGATIVE) Urine Nitrite (NEGATIVE) Urine Bilirubin (NEGATIVE) Urine Urobilinogen (0.2) EU/dL Ur Leukocyte Esterase (NEGATIVE) Urine RBC (NOT SEEN) /HPF Urine WBC (NOT SEEN) /HPF Ur Squamous Epith Cells (NEGATIVE) /HPF Ur Renal Epithelial Cell (NEGATIVE) /HPF Urine Bacteria (NEGATIVE) /HPF Urine Mucus (NEGATIVE) /LPF 12/14/18 12/14/18 Range/Units 11:31 12:00 WBC (4.0-10.0) x10^3/uL RBC (4.5-6.0) x10^6/uL Hgb (14.0-18.0) g/dL Hct (40.0-52.0) % MCV (78.0-93.0) fL MCH (26.0-32.0) pg MCHC (32.0-36.0) g/dL RDW Coeff of Taz (10.0-15.0) % Plt Count (130-400) x10^3/uL Neut % (Auto) (50.0-80.0) % Lymph % (Auto) (25.0-50.0) % [place] % (Auto) (2.0-11.0) % Eos % (Auto) (0.0-4.0) % Baso % (Auto) (0.2-1.2) % PT (10.0-12.8) SEC INR (2.0-3.5) APTT 24.1 (24.0-36.0) SEC Sodium (136-145) mmol/L Potassium (3.5-5.1) mmol/L Chloride (98-107) mmol/L Carbon Dioxide (21-32) mmol/L Anion Gap (10-20) mmol/L BUN (7-18) mg/dL Creatinine (0.70-1.30) mg/dL Est Cr Clr Drug Dosing mL/min Estimated GFR (MDRD) Glucose (74-106) mg/dL Calcium (8.5-10.1) mg/dL Corrected Calcium (8.5-10.1) mg/dL Total Bilirubin (0.2-1.0) mg/dL AST (15-37) U/L ALT (16-63) U/L Alkaline Phosphatase (46-116) U/L Total Protein (6.4-8.2) g/dL Albumin (3.4-5.0) g/dL Globulin Albumin/Globulin Ratio Urine Color Brown H (YELLOW) Urine Appearance Turbid H (CLEAR) Urine pH 5.5 (5.0-8.0) Ur Specific [place] 1.025 Urine Protein >=300 H (NEGATIVE) mg/dL Urine Glucose (UA) Negative (NEGATIVE) mg/dL Urine Ketones Negative (NEGATIVE) mg/dL Urine Occult Blood Large H (NEGATIVE) Urine Nitrite Negative (NEGATIVE) Urine Bilirubin Moderate H (NEGATIVE) Urine Urobilinogen 1.0 (0.2) EU/dL Ur Leukocyte Esterase Small H (NEGATIVE) Urine RBC Packed (NOT SEEN) /HPF Urine WBC 5-10 H (NOT SEEN) /HPF Ur Squamous Epith Cells Not seen (NEGATIVE) /HPF Ur Renal Epithelial Cell Few H (NEGATIVE) /HPF Urine Bacteria Not seen (NEGATIVE) /HPF Urine Mucus Not seen (NEGATIVE) /LPF Meds: Medications Discontinued Medications Generic Name Dose Route Start Last Admin Trade Name Freq PRN Reason Stop Dose Admin Ciprofloxacin 2 packet 12/14/18 12:33 12/14/18 12:35 Take Home: Ciprofloxacin 500 Mg, 2 Tab Pack PO 12/14/18 12:34 2 packet ONETIME ONE Administration - Re-Assessments/Exams Free Text/Narrative Re-Assessment/Exam: bladder was irrigated with a liter of normal saline. Several blood clots were irrigated from the bladder. Pt. was able to urinate without difficulty following irrigation. Departure - Departure Time of Disposition: 12:15 Disposition: Home, Self-Care 01 Condition: Good Clinical Impression: UTI, Urinary tract infectious disease - Discharge Information Instructions: Urinary Tract Infection, Adult Referrals: Мария Zelaya DO [Primary Care Provider] - Forms: ED Department Discharge Additional Instructions: Home to rest. Cipro 500mg twice daily for 5 days Drink plenty of fluids Follow-up in clinic in 10-14 days for recheck Return to ER/call if you have further problems - Assessment/Plan Plan: Home to rest. Cipro 500mg twice daily for 5 days Drink plenty of fluids Follow-up in clinic in 10-14 days for recheck Return to ER/call if you have further problems
== END 2018-12-14 12:45 | disposition home or self-care (01) ==
LOC: VM.ED 11:03
DX: N39.0 Urinary tract infection, site not specified (principal); E78.00 Pure hypercholesterolemia, unspecified; I10 Essential (primary) hypertension; I25.10 Atherosclerotic heart disease of native coronary artery without angina pectoris; E11.40 Type 2 diabetes mellitus with diabetic neuropathy, unspecified; E11.9 Type 2 diabetes mellitus without complications; Z87.891 Personal history of nicotine dependence; Z88.8 Allergy status to other drugs, medicaments and biological substances; Z79.899 Other long term (current) drug therapy; Z79.4 Long term (current) use of insulin
CPT/HCPCS: 36415; 51700; 80053; 81001; 85025; 85610; 85730; 99283; A9270; 51702

== ENCOUNTER 2019-03-12 22:53 | Inpatient (IN) | payer MEDICARE, OTHER, MEDICAID ==
[2019-03-12] MEDS ORDERED: GI Cocktail Oral Solution 30 ML PO ONE (23:00)
[2019-03-12] MEDS ORDERED: Sodium Chloride 0.9% 1,000 ML IV ONE (23:00)
[2019-03-12] MEDS ORDERED: Aspirin 81 MG Tab.Chew PO ONE (23:00)
[2019-03-12] MEDS ORDERED: Ondansetron 4 MG/2 ML SDV IVPUSH ONE (23:10)
[2019-03-12] MEDS ORDERED: Ondansetron 4 MG/2 ML SDV ONE (23:21)
[2019-03-12] MEDS ORDERED: GI Cocktail Oral Solution 30 ML ONE (23:33)
[2019-03-12 23:34] LABS: CHLORIDE,CL 100 mmol/L (98-107); SODIUM,NA 138 mmol/L (136-145)
[2019-03-12 23:44] LABS: ANION GAP 13.8 mmol/L (10-20)
[2019-03-13] MEDS ORDERED: Iopamidol 612 MG/ML 100 ML Bottle IVPUSH ONE (01:02)
--- NOTE | 2019-03-13 01:58 | EDM.PDOC ---
ED HPI GENERAL MEDICAL PROBLEM - General Chief Complaint: Cardiovascular Problem Stated Complaint: CHEST PAIN Time Seen by Provider: 03/12/19 23:33 Source of Information: Reports: Patient, EMS History Limitations: Reports: No Limitations - History of Present Illness INITIAL COMMENTS - FREE TEXT/NARRATIVE: Please use for admission H and P. Patient presents to the ed with complaints of sweating, nausea, pain to left arm , epigastric pain. Not reproducible on palpation, movement, or inhalation. States he took 1 nitro and this was ineffective. Has history of CAD, with CABG. Reports pain started around 8 pm. No chest pressure. He denies headache , neck pain. He is able to move all extremities. No weakness to any extremities. When he arrives he is pale, diaphoretic, and nauseated. Emesis x 2 of bile like substance. Heart rate 40-50's. Unable to log into his [facility] chart for additional history and he is not the best historian. Onset: Today, Sudden Duration: Intermittent Location: Reports: Chest, Upper Extremity, Left Quality: Reports: Ache Severity: Moderate Associated Symptoms: Reports: Chest Pain, Nausea/Vomiting - Related Data Allergies Allergy/AdvReac Type Severity Reaction Status Date / Time Beta-Blockers Allergy Other Verified 12/14/18 12:14 (Beta-Adrenergic Bloc Home Meds: Home Meds Losartan [Cozaar] 100 mg PO DAILY 01/25/14 [History] Magnesium Oxide 400 mg PO DAILY 01/25/14 [History] Metoprolol Succinate [Toprol XL] 25 mg PO DAILY 01/25/14 [History] Timolol Maleate [Timoptic 0.5% Ocudose] 1 drop EYEBOTH BID 01/25/14 [History] Insulin Lispro [Humalog] 3 unit SQ DAILY@1200 02/26/14 [History] Echinacea 1 tab PO DAILY 12/09/15 [History] Acetaminophen 500 - 1,000 mg PO Q6H PRN 11/15/16 [History] Multivitamin [Daily Multiple Vitamin] 1 tab PO DAILY 11/20/16 [History] Potassium 99 mg PO DAILY 11/20/16 [History] Tamsulosin [Flomax] 0.4 mg PO DAILY 11/20/16 [History] Ubidecarenone [Co Q-10] 200 mg PO DAILY 11/20/16 [History] Aspirin 325 mg PO DAILY #0 12/06/16 [Rx] Furosemide [Lasix] 20 mg PO DAILY #30 tablet 12/06/16 [Rx] Calcium Carb & Citrate/Vit D3 [Citracal + D ER] 1 each PO DAILY 06/04/18 [ History] Celecoxib 1 tab PO DAILY 06/04/18 [History] Cholecalciferol (Vitamin D3) [Vitamin D3] 3,000 unit PO DAILY 06/04/18 [History] Lactobacillus Combination No.4 [Probiotic] 1 each PO DAILY 06/04/18 [History] Lactobacillus Combination No.4 [Probiotic] 1 each PO DAILY 06/04/18 [History] MV/K/O3/D3/Mag/C/Ala/Grn T/Chr [Diabetes Health Pack] 1 each PO DAILY 06/04/18 [ History] Non-Formulary Medication [NF Drug] 1 tab PO DAILY 06/04/18 [History] Homeland-3 Fatty Acids [Homeland-3] 100 mg PO DAILY 06/04/18 [History] Turmeric Root Extract [Turmeric] 1,500 mg PO DAILY 06/04/18 [History] Vitamin E(Dl-Alpha Tocopherol) [Alpha Tocopherol] 400 units PO DAILY 06/04/18 [ History] Zinc 50 mg PO DAILY 06/04/18 [History] atorvaSTATin [Lipitor] 20 mg PO DAILY 06/04/18 [History] Cefuroxime Axetil [Ceftin] 500 mg PO BID #8 tablet 06/06/18 [Rx] Insulin Glarg,Human.Rec.Analog [Lantus Solostar] 10 units SUBCUT BEDTIME #1 pen 06/06/18 [Rx] Insulin Glarg,Human.Rec.Analog [Lantus Solostar] 15 units SUBCUT DAILY #1 pen [Rx] Potassium Chloride [Klor-Con 10] 20 meq PO BIDMEALS #16 tab.er 06/06/18 [Rx] Past Medical History HEENT History: Reports: Cataract, Glaucoma Other HEENT History: chest pain Cardiovascular History: Reports: CAD, High Cholesterol, Hypertension Other Cardiovascular History: ELEVATED LFTS Respiratory History: Reports: Asthma Gastrointestinal History: Reports: GI Bleed, Other (See Below) Other Gastrointestinal History: abd. pain, DUODENAL ULCER, esophageal tear Genitourinary History: Reports: BPH Other Genitourinary History: ED Musculoskeletal History: Reports: Osteoarthritis Other Musculoskeletal History: DISH (diffuse idiopathic skeletal hypertrophy) Neurological History: Reports: Neuropathy, Diabetic Endocrine/Metabolic History: Reports: Diabetes, Type II Other Endocrine/Metabolic History: pure hyperglyceridemea Hematologic History: Reports: Anemia, B12 Deficiency Other Hematologic History: elevated LFTs (Liver function tests) - Past Surgical History HEENT Surgical History: Reports: Adenoidectomy, Cataract Surgery, Tonsillectomy Cardiovascular Surgical History: Reports: Coronary Artery Bypass Musculoskeletal Surgical History: Reports: Other (See Below) Social & Family History - Caffeine Use Caffeine Use: Reports: Coffee, Soda ED ROS GENERAL - Review of Systems Review Of Systems: See Below Constitutional: Reports: Diaphoresis HEENT: Reports: No Symptoms Respiratory: Reports: No Symptoms Cardiovascular: Reports: Chest Pain Endocrine: Reports: No Symptoms GI/Abdominal: Reports: Nausea, Vomiting : Reports: No Symptoms Musculoskeletal: Reports: Shoulder Pain, Arm Pain (left sided) Skin: Reports: Diaphoresis Neurological: Reports: No Symptoms Psychiatric: Reports: No Symptoms Hematologic/Lymphatic: Reports: No Symptoms Immunologic: Reports: No Symptoms ED EXAM, GENERAL - Physical Exam Exam: See Below Exam Limited By: No Limitations General Appearance: Alert, WD/WN, Moderate Distress Eye Exam: Bilateral Eye: EOMI, PERRL Ears: Normal TMs Nose: Normal Inspection, Normal Mucosa, No Blood Throat/Mouth: Normal Inspection, Normal Lips, Normal Teeth, Normal Gums, Normal Oropharynx, Normal Voice, No Airway Compromise Head: Atraumatic, Normocephalic Neck: Normal Inspection, Supple, Non-Tender, Full Range of Motion Respiratory/Chest: No Respiratory Distress, Lungs Clear, Normal Breath Sounds, No Accessory Muscle Use, Chest Non-Tender Cardiovascular: Normal Peripheral Pulses, Regular Rate, Rhythm, No Edema, No Gallop, No JVD, No Murmur, No Rub Peripheral Pulses: 2+: Radial (L), Radial (R), Posterior Tibial (L), Posterior Tibial (R), Dorsalis Pedis (L), Dorsalis Pedis (R) GI/Abdominal: Normal Bowel Sounds, Soft, Non-Tender, No Organomegaly, No Distention, No Abnormal Bruit, No Mass Back Exam: Normal Inspection, Full Range of Motion, NT Extremities: Normal Inspection, Normal Range of Motion, Non-Tender, Normal Capillary Refill, No Pedal Edema Neurological: Alert, Oriented, CN II-XII Intact, Normal Cognition, Normal Gait, Normal Reflexes, No Motor/Sensory Deficits Psychiatric: Normal Affect, Normal Mood Skin Exam: Diaphoretic, Pallor Lymphatic: No Adenopathy Course - Orders/Labs/Meds Orders: Active Orders 24 hr Category Date Time Status Patient Status [ADT] Routine ADT 03/13/19 01:51 Active Chest PE [Ang Chest] [CT] Stat Exams 03/13/19 00:43 Taken URINALYSIS W/MICROSCOPIC [UA W/MICROSCOPIC] [URIN] Stat Lab 03/13/19 01:50 Ordered Labs: Laboratory Tests 03/12/19 03/12/19 03/12/19 Range/Units 23:00 23:00 23:00 WBC 9.3 (4.0-10.0) x10^3/uL RBC 3.53 L (4.5-6.0) x10^6/uL Hgb 10.2 L (14.0-18.0) g/dL Hct 31.5 L (40.0-52.0) % MCV 89.2 D (78.0-93.0) fL MCH 28.9 (26.0-32.0) pg MCHC 32.4 (32.0-36.0) g/dL RDW Coeff of Taz 14.8 (10.0-15.0) % Plt Count 263 D (130-400) x10^3/uL Add Manual Diff Yes Neutrophils % (Manual) 67 (50-80) % Lymphocytes % (Manual) 14 L (25-50) % Monocytes % (Manual) 11 (2-11) % Eosinophils % (Manual) 7 H (0-4) % Metamyelocytes % 1 H (0) % Platelet Estimate Adequate Anisocytosis 1+ slight H PT 11.5 (10.0-12.8) SEC INR 1.0 L (2.0-3.5) D-Dimer, Quantitative (<=0.58) mg/LFEU Sodium 138 (136-145) mmol/L Potassium 3.8 (3.5-5.1) mmol/L Chloride 100 (98-107) mmol/L Carbon Dioxide 28 (21-32) mmol/L Anion Gap 13.8 (10-20) mmol/L BUN 18 (7-18) mg/dL Creatinine 1.0 (0.70-1.30) mg/dL Est Cr Clr Drug Dosing TNP Estimated GFR (MDRD) > 60 Glucose 161 H (74-106) mg/dL Calcium 8.6 (8.5-10.1) mg/dL Corrected Calcium 9.16 (8.5-10.1) mg/dL Total Bilirubin 0.4 (0.2-1.0) mg/dL AST 23 (15-37) U/L ALT 33 (16-63) U/L Alkaline Phosphatase 127 H (46-116) U/L Creatine Kinase 239 (39-308) U/L POC Troponin I (0.00-0.08) ng/mL NT-Pro-B Natriuret Pep (<=450) pg/mL Total Protein 7.1 (6.4-8.2) g/dL Albumin 3.3 L (3.4-5.0) g/dL Globulin 3.8 Albumin/Globulin Ratio 0.87 03/12/19 03/12/19 03/13/19 Range/Units 23:00 23:02 00:00 WBC (4.0-10.0) x10^3/uL RBC (4.5-6.0) x10^6/uL Hgb (14.0-18.0) g/dL Hct (40.0-52.0) % MCV (78.0-93.0) fL MCH (26.0-32.0) pg MCHC (32.0-36.0) g/dL RDW Coeff of Taz (10.0-15.0) % Plt Count (130-400) x10^3/uL Add Manual Diff Neutrophils % (Manual) (50-80) % Lymphocytes % (Manual) (25-50) % Monocytes % (Manual) (2-11) % Eosinophils % (Manual) (0-4) % Metamyelocytes % (0) % Platelet Estimate Anisocytosis PT (10.0-12.8) SEC INR (2.0-3.5) D-Dimer, Quantitative 1.62 H (<=0.58) mg/LFEU Sodium (136-145) mmol/L Potassium (3.5-5.1) mmol/L Chloride (98-107) mmol/L Carbon Dioxide (21-32) mmol/L Anion Gap (10-20) mmol/L BUN (7-18) mg/dL Creatinine (0.70-1.30) mg/dL Est Cr Clr Drug Dosing Estimated GFR (MDRD) Glucose (74-106) mg/dL Calcium (8.5-10.1) mg/dL Corrected Calcium (8.5-10.1) mg/dL Total Bilirubin (0.2-1.0) mg/dL AST (15-37) U/L ALT (16-63) U/L Alkaline Phosphatase (46-116) U/L Creatine Kinase (39-308) U/L POC Troponin I 0.03 (0.00-0.08) ng/mL NT-Pro-B Natriuret Pep 769 H (<=450) pg/mL Total Protein (6.4-8.2) g/dL Albumin (3.4-5.0) g/dL Globulin Albumin/Globulin Ratio Meds: Medications Discontinued Medications Generic Name Dose Route Start Last Admin Trade Name Freq PRN Reason Stop Dose Admin Al Hydroxide/Mg Hydroxide Confirm 03/12/19 23:33 03/13/19 02:21 Gi Cocktail Administered 03/12/19 23:34 Not Given Dose 30 ml .ROUTE .STK-MED ONE Al Hydroxide/Mg Hydroxide 30 ml 03/12/19 23:00 03/12/19 23:30 Gi Cocktail PO 03/12/19 23:01 30 ml ONETIME ONE Administration Aspirin 324 mg 03/12/19 23:00 03/12/19 23:22 Aspirin PO 03/12/19 23:01 324 mg ONETIME ONE Administration Sodium Chloride 1,000 mls @ 999 mls/hr 03/12/19 23:00 03/12/19 23:10 Normal Saline IV 03/13/19 00:00 999 mls/hr ONETIME ONE Administration Iopamidol 100 ml 03/13/19 01:02 03/13/19 01:03 Isovue-300 (61%) IVPUSH 03/13/19 01:03 100 ml ONETIME ONE Administration Ondansetron HCl Confirm 03/12/19 23:21 03/13/19 02:20 Zofran Administered 03/12/19 23:22 Not Given Dose 4 mg .ROUTE .STK-MED ONE Ondansetron HCl 4 mg 03/12/19 23:10 03/12/19 23:17 Zofran IVPUSH 03/12/19 23:11 4 mg ONETIME ONE Administration - Radiology Interpretation Free Text/Narrative:: Chest x-ray negative for acute process, CTA chest negative for PE, aortic dissection - Re-Assessments/Exams Free Text/Narrative Re-Assessment/Exam: 03/13/19 02:09 GI cocktail did seem to reduce pain level, nausea. Departure - Departure Time of Disposition: 02:00 Disposition: Refer to Observation Condition: Fair Clinical Impression: Chest pain Qualifiers: Chest pain type: unspecified Qualified Code(s): R07.9 - Chest pain, unspecified - Problem List & Annotations (1) Chest pain SNOMED Code(s): 21268416 Code(s): R07.9 - CHEST PAIN, UNSPECIFIED Status: Acute Current Visit: Yes Qualifiers: Chest pain type: unspecified Qualified Code(s): R07.9 - Chest pain, unspecified - Problem List Review Problem List Initiated/Reviewed/Updated: Yes - My Orders Last 24 Hours: My Active Orders 03/13/19 00:43 Chest PE [Ang Chest] [CT] Stat 03/13/19 01:50 URINALYSIS W/MICROSCOPIC [UA W/MICROSCOPIC] [URIN] Stat 03/13/19 01:51 Patient Status [ADT] Routine - Assessment/Plan Last 24 Hours: My Active Orders 03/13/19 00:43 Chest PE [Ang Chest] [CT] Stat 03/13/19 01:50 URINALYSIS W/MICROSCOPIC [UA W/MICROSCOPIC] [URIN] Stat 03/13/19 01:51 Patient Status [ADT] Routine Assessment:: chest pain Plan: Plan Will admit to observation to trend troponin levels. Gentle hydration. Antacids as needed for epigastric pain. Discharge in AM if normal troponin levels. Follow up with primary provider next week and as needed.
[2019-03-13] MEDS ORDERED: Ondansetron 4 MG/2 ML SDV IV PRN (03:07)
[2019-03-13] MEDS ORDERED: Sodium Chloride 0.9% 1,000 ML IV SCH (03:15)
[2019-03-13] MEDS: Pantoprazole 40 MG Vial IVPUSH SCH ×2 (03:26→14:55)
--- NOTE | 2019-03-13 07:39 | CT ---
[id number] CT/CTA Chest Exam: CTA Chest Clinical Data: ELEVATED D-DIMER. CHEST PAIN COMPARISON: NO PREVIOUS SIMILAR EXAM IS AVAILABLE FINDINGS: There are no pulmonary emboli. There are diffuse atheromatous calcifications. There is no mediastinal mass or adenopathy. The gallbladder is slightly distended. There are granulomatous changes. There is mild scarring at the lung bases. There is no infiltrate. Median sternotomy sutures are seen. IMPRESSION: NO PULMONARY EMBOLI. Igor Herman MD 03/13/19 0738 Thank you for allowing us to participate in the care of your patient.
[2019-03-13 08:36] LABS: ANION GAP 15.2 mmol/L (10-20); CHLORIDE,CL 98 mmol/L (98-107); SODIUM,NA 135 mmol/L (136-145)
--- NOTE | 2019-03-13 08:38 | CR ---
[id number] RAD/RAD Chest PA or AP 1V EXAM: RAD Chest PA or AP 1V INDICATION: CHEST PAIN COMPARISON: June 04, 2018. DISCUSSION: Cardiomediastinal silhouette is unchanged in size and contour compared to the prior examination. Bilateral symmetric lung hyperinflation suggesting underlying COPD. No infiltrate, effusion, pneumothorax, or edema. IMPRESSION: No acute findings. Luis Danielle MD 03/13/19 0837 Thank you for allowing us to participate in the care of your patient.
[2019-03-13] MEDS ORDERED: Sulfamethoxazole/Trimethoprim 800-160 MG Tab PO SCH (08:45)
[2019-03-13] MEDS: Losartan 50 MG Tab PO SCH (10:31)
[2019-03-13] MEDS: Omeprazole 20 MG Cap.CR PO SCH ×2 (10:31→17:17)
[2019-03-13] MEDS: Tamsulosin 0.4 MG Cap.ER PO SCH (10:32)
[2019-03-13] MEDS: Metoprolol Succinate 25 MG Tab.ER PO SCH (10:32)
[2019-03-13] MEDS: Magnesium Oxide 400 MG Tab PO SCH (10:32)
[2019-03-13] MEDS: DULoxetine 20 MG Cap PO SCH (10:32)
[2019-03-13] MEDS: atorvaSTATin 10 MG Tab PO SCH (10:32)
[2019-03-13] MEDS: Furosemide 20 MG Tab PO SCH ×3 (10:32→15:20)
[2019-03-13] MEDS: Lactobacillus Rhamnosus GG (Probiotic) Cap PO SCH (10:32)
[2019-03-13] MEDS: Fish Oil/Omega-3 Fatty Acids 1 Gm Cap PO SCH (10:32)
[2019-03-13] MEDS ORDERED: Insulin Lispro 100 Unit/ML 3 ML KwikPen SUBCUT SCH (12:00)
--- NOTE | 2019-03-13 14:41 | CR ---
[id number] RAD/RAD Abd Flat and Upright 2V EXAM: RAD Abd Flat and Upright 2V INDICATION: BLOATING. COMPARISON: CT from May 2018. DISCUSSION: Moderate colonic stool burden. Collected for constipation. Gaseous distention of the colon as well. No dilated small bowel to suggest obstruction. No radiographically evident pneumatosis or pneumoperitoneum. Vascular calcifications project over the pelvis. Extensive changes of enthesopathy throughout the pelvis. Bones are diffusely demineralized. Osteoarthritis throughout the pelvis. Spondylosis of lower lumbar spine. Post surgical change in both proximal femurs. IMPRESSION: Moderate colonic stool burden with colonic gaseous distention. No evidence of a bowel obstruction. Luis Danielle MD 03/13/19 [id number] Thank you for allowing us to participate in the care of your patient.
[2019-03-13] MEDS: Insulin Lispro 100 Unit/ML 3 ML KwikPen SUBCUT SCH ×2 (14:55→19:12)
[2019-03-13] MEDS: Acetaminophen 325 MG Tab PO PRN ×2 (14:56→17:18)
[2019-03-13] MEDS ORDERED: cefTRIAXone 2 GM Vial IVPUSH ONE (15:50)
[2019-03-13] MEDS: Polyethylene Glycol 3350 Powder 17 GM Packet PO SCH (17:17)
[2019-03-13] MEDS: Insulin Glargine,Human Rec. Analog 100 Units/ML 3 ML Pen SUBCUT SCH (20:25)
--- NOTE | 2019-03-13 20:25 | PCM.SN ---
- Free Text/Narrative Note: bladder scan was 237 ml
[2019-03-13] MEDS: Sodium Chloride 0.9% 10 ML Syringe IV PRN (20:35)
[2019-03-13] MEDS: Enoxaparin 40 MG/0.4 ML Syringe SUBCUT SCH (20:39)
--- NOTE | 2019-03-13 21:34 | PN ---
Progress Note for CARLOTA CARRINGTON Date: 03/13/2019 Room #: VM.215 CHIEF COMPLAINT: Epigastric pain. HISTORY OF PRESENT ILLNESS: This is an 83-year-old male with a known history of coronary artery disease. Symptoms started around 8 p.m. with sweating, nausea, epigastric pain, and vomiting x2, but no report of chest pressure. His initial troponin was negative. This morning, it was also negative, but up to 0.05. Then at 11 a.m., it was up to 0.063, and he spiked a temperature up to 102 at 3 p.m. He had been diagnosed also this morning with a UTI and started on Bactrim. He was admitting to some burning with urination. He is admitting to some 2/10 diffuse abdominal pain and short of breath, but the oxygen helps, but no chest pain currently. He had an admission for Klebsiella bacteremia last fall. Possible source was prostatitis versus cholecystitis, and followup ultrasound did show gallstones, but he had declined any surgical intervention. The patient also has a history of peptic ulcer disease. He has been off aspirin, but did get aspirin on admission. He did have an admit back in November for GI bleeding due to an esophageal ulcer with chronic gastritis. He was taking some NSAIDs at that time. Otherwise, he does carry an allergy to beta-blockers (bradycardia) but still uses Toprol 25 mg. He did jama down into the 40s and 50s on ER presentation, but has remained on telemetry with no bradycardic events. The patient's cardiac history does include a 3-vessel CABG back in 2013. The patient does have chronic anemia. His baseline hemoglobin in the clinic has been around 10. He has type 2 diabetes, which has been under excellent control, with neuropathy and long- term insulin use. PHYSICAL EXAMINATION: Vital Signs: Otherwise, objectively, today, the patient's temperature currently is down to 99.1, pulse 76, blood pressure 129/55, respiratory rate 20, and O2 is 96 on 2 L. General: He is in no acute distress. Heart: Regular rate and rhythm without any murmur appreciated. Lungs: Lung sounds are clear to auscultation bilaterally without crackles or wheezes. Abdomen: Distended, but positive bowel sounds. Soft, but with generalized tenderness, and no rebound or guarding. Extremities: Warm and dry. No edema. Mental Status: He is alert. He is orientated x3. LABORATORY DATA: Lab work does show him to have a white count done on admission, which was normal; hemoglobin was 10.2; and platelets 263. INR was 1, and D-dimer was 1.62. Therefore, he had a CT of his chest, which showed negative for PE. Sodium 135, potassium 4.2, chloride 98, bicarb 26, BUN 17, creatinine 0.9, glucose 170, and calcium 8.1. Lactic acid was 1.9. ProBNP was 769 on admission. UA showed 5 to 10 wbc's. Culture is pending. EKG did show he had 2 EKGs. One this morning showed him to have a sinus rhythm with a first- degree AV block, left bundle-branch block, and multiple PVCs. The left bundle- branch block is not new. ASSESSMENT AND PLAN: 1. Yqi-[id number] elevation myocardial infarction in the setting of vomiting and fevers, could be a primary cardiac event, but with ongoing infection and the patient not desiring to be transferred for further cares, we will resume medical management with daily aspirin. He is already on a statin and beta-emilio as well as losartan. We will start him on Lovenox, just deep venous thrombosis prophylaxis doses, given his history of gastrointestinal bleeding. 2. History of peptic ulcer disease. He has been started on some IV Protonix here. He does have chronic anemia. We will monitor blood counts. 3. Chronic anemia. Hemoglobin is at his baseline near 10. 4. Chronic diastolic heart failure. Ejection fraction back in June was 65%. He has been on increasing doses of Lasix over the past month, currently was receiving 20 mg twice daily. He did get some IV fluids here. I am going to hold off on further fluids and continue him on his oral Lasix. We will institute IV if needed. He is currently about a 1000 positive fluid balance, but with fevers and ongoing infection, that is appropriate. 5. Systemic inflammatory response with the fever. White count was normal on admit. He does have a mild urinary tract infection. We will check blood cultures and switch his Bactrim oral over to IV Rocephin. He did get just the 1 dose of the Bactrim. 6. Diabetes. The patient has excellent control. We will schedule him on 5 units of his meal insulin. At home, he actually does adjust his doses based on what he is eating. He is also on his home Lantus, which is 15 in the morning and 10 at night. We will do t.i.d. Accu-Cheks for him. 7. Essential hypertension. Blood pressures are under good control. We will continue his home medications. 8. Chronic arthritis with ankylosing spondylitis. He is not having any increased pain currently. 9. Known history of gallstones with abdominal pain. He is having right upper quadrant tenderness and positive Davis sign, which I did forget to note during the physical examination. We will cover him with IV antibiotics, and if his symptoms get worse, we will consider transfer, although he would not be a great surgical candidate with his myocardial infarction status, and I will repeat laboratory work tomorrow with liver enzymes. His bilirubin was normal on admission. 10.Obesity. 11. Constipation noted on his abdominal X-ray we have started Miralax The plan at this point, the patient will be upgraded from observation to acute cares. He is eating and tolerating a diet currently. He is off IV fluids. He is on IV antibiotics with Rocephin, day #1. He is on all his home oral medications and on medical management for his tzy-LY-exognpxfu OK. He will be on telemetry to continue. He is a code level 1. DVT prophylaxis he is on Lovenox and for stress ulcer prophylaxis he is taking his IV Protonix. He is on his home vitamin doses of potassium. Those levels are adequate. We will recheck labs with a magnesium level tomorrow. Dr. Fowler to cover over the weekend. The patient will likely require 2 more nights' stay, and also he is weak currently, and we will get Physical Therapy involved to ensure his safety before returning home. MICHAEL: 03/13/2019 20:24:15 MODL: 03/13/2019 21:29:01 /[id number] DERIC
[2019-03-14] MEDS: Pantoprazole 40 MG Vial IVPUSH SCH ×2 (02:43→14:58)
[2019-03-14] MEDS: Sodium Chloride 0.9% 10 ML Syringe IV PRN ×2 (02:43→20:55)
[2019-03-14] MEDS: Omeprazole 20 MG Cap.CR PO SCH ×3 (05:50→17:05)
[2019-03-14] MEDS: Losartan 50 MG Tab PO SCH (07:50)
[2019-03-14] MEDS: Metoprolol Succinate 25 MG Tab.ER PO SCH (07:51)
[2019-03-14] MEDS: Tamsulosin 0.4 MG Cap.ER PO SCH (07:52)
[2019-03-14] MEDS: Magnesium Oxide 400 MG Tab PO SCH (07:52)
[2019-03-14] MEDS: Fish Oil/Omega-3 Fatty Acids 1 Gm Cap PO SCH (07:52)
[2019-03-14] MEDS: atorvaSTATin 10 MG Tab PO SCH (07:54)
[2019-03-14] MEDS: Polyethylene Glycol 3350 Powder 17 GM Packet PO SCH (07:54)
[2019-03-14] MEDS: Aspirin 81 MG Tab.EC PO SCH (07:55)
[2019-03-14] MEDS: DULoxetine 20 MG Cap PO SCH (07:55)
[2019-03-14] MEDS: Furosemide 20 MG Tab PO SCH ×2 (07:55→14:58)
[2019-03-14] MEDS: Lactobacillus Rhamnosus GG (Probiotic) Cap PO SCH (07:55)
[2019-03-14] MEDS ORDERED: cefTRIAXone 1 GM Vial IVPUSH SCH (08:00)
[2019-03-14 08:03] LABS: ANION GAP 14.8 mmol/L (10-20)
[2019-03-14] MEDS: Insulin Lispro 100 Unit/ML 3 ML KwikPen SUBCUT SCH ×3 (08:05→17:19)
[2019-03-14] MEDS: Insulin Glargine,Human Rec. Analog 100 Units/ML 3 ML Pen SUBCUT SCH ×2 (08:06→19:51)
[2019-03-14] MEDS ORDERED: Sodium Chloride 0.45% 1,000 ML IV SCH (10:15)
[2019-03-14] MEDS ORDERED: Dextrose 5%-0.45% NaCl 1,000 ML IV SCH ×2 (10:30→21:15)
--- NOTE | 2019-03-14 10:40 | PCM.SN ---
- Free Text/Narrative Note: Coverage note March 14 2019 S: Patient reports he is feeling much better today, he had a large bowel movement. He still continues to have discomfort in his lower abdomen. He denies shortness of breath, chest pain, nausea, vomiting. Yesterday he had a feeling of pain in his upper abdomen and tingling in both of his hands with sweating. This has not recurred. Patient denies any dysuria, urinary hesitancy. Patient states he's never had a UTI, he had a gallbladder attack last year but doesn't remember what that was like. Objective: in no acute distress, he is awake and alert. Blood pressure 129/62, pulse 84 and regular O2 sat is 93% he is on 2 L of O2 presently MAXIMUM TEMPERATURE was 100.5 last night. Lungs: Rales at both bases Cor: S1, S2 normal without rubs, murmurs, gallops Abdomen: Patient is mildly tender in the right upper quadrant, bowel sounds are active, no tenderness on palpation of the bladder or lower abdomen Labs: Blood sugars at bedside have been anywhere between 105 and 186 White count is quite elevated at 22,100 with left shift, compared with white count of 9300 last night CMP notable for a magnesium 1.6, blood sugar of 168. Other electrolytes are normal. LFTs are normal Troponin is lower than yesterday at 0.068 Urine culture showing gram-negative rods MEDS: Tylenol, baby aspirin, Lipitor, Rocephin, Lovenox, fish oil, Lasix, glargine 10 units in the morning 15 units at night, lispro 5 units 3 times a day Lactobacillus, losartan, Mag-Ox, metoprolol, potassium, omeprazole, Flomax, timolol. Impression Patient appears clinically better however his white count is worrisome. He is well aware that he probably had a small subendocardial MS yesterday( sweating, hand tingling, upper abd pain) he's feeling much better today. His troponins are on their way down Plan: 1. Leukocytosis:Check chest x-ray for pneumonia, also we'll treat for atelectasis with incentive spirometry Patient does have gram-negative rods in his urine, we'll switch from Rocephin to Cipro: in View of interactions with Cipro, Cymbalta has been DC'd, as has ondansetron. Patient has not been using the amounts of trauma, and he is aware that the Cymbalta is being held and we'll keep an eye on any depressive or SSRI withdrawal symptoms. I suspect the culprit is his gallbladder as he has mild right upper quadrant tenderness. Patient will also be started on metronidazole, placed on a clear liquid diet; start D5 half-normal saline to try to avoid hypoglycemia, no change in his insulin for now, increase his monitoring to 4 times a day 2. MS: Continue monitoring troponin and teletypesetter monitor Had an extensive conversation with the patient. I expressed my concerns that if this is an infected gallbladder surgery may be the best option for him.. Particularly in view of his being diabetic patient declines transfer to [facility] where surgery consultation and cardiology consultation would be available. He says he would go if he would get Worse I explained that SURGERY is best done when he is stable relatively speaking but he continues to decline transfer.
[2019-03-14] MEDS: Timolol Maleate 0.5% Ophth Soln 5 ML Bottle EYEBOTH SCH ×2 (11:13→19:53)
[2019-03-14] MEDS: Ciprofloxacin in D5W 400 MG in Premix Bag 1 BAG IV SCH ×4 (11:15→21:01)
[2019-03-14] MEDS: metroNIDAZOLE/Normal Saline 500 MG in Premix Bag 1 BAG IV SCH ×2 (11:15→17:05)
--- NOTE | 2019-03-14 13:26 | CR ---
[id number] RAD/RAD Chest PA or AP 1V EXAM: FRONTAL CHEST INDICATION: Rales and fever. COMPARISON: March 12, 2019. DISCUSSION: The heart is mildly enlarged without evidence of congestive heart failure. No acute infiltrates are identified. Prior median sternotomy. IMPRESSION: 1. No acute findings. Bam Lee MD 03/14/19 [id number] Thank you for allowing us to participate in the care of your patient.
[2019-03-14] MEDS: Enoxaparin 40 MG/0.4 ML Syringe SUBCUT SCH ×2 (19:52→20:05)
[2019-03-14] MEDS: Acetaminophen 325 MG Tab PO PRN (19:52)
[2019-03-15] MEDS: metroNIDAZOLE/Normal Saline 500 MG in Premix Bag 1 BAG IV SCH ×3 (01:18→17:55)
[2019-03-15] MEDS: Sodium Chloride 0.9% 10 ML Syringe IV PRN ×2 (02:18→20:16)
[2019-03-15] MEDS: Pantoprazole 40 MG Vial IVPUSH SCH (02:18)
[2019-03-15] MEDS: Omeprazole 20 MG Cap.CR PO SCH ×3 (05:00→16:06)
[2019-03-15] MEDS: Polyethylene Glycol 3350 Powder 17 GM Packet PO SCH (08:04)
[2019-03-15] MEDS: Aspirin 81 MG Tab.EC PO SCH (08:04)
[2019-03-15] MEDS: Metoprolol Succinate 25 MG Tab.ER PO SCH (08:05)
[2019-03-15] MEDS: atorvaSTATin 10 MG Tab PO SCH (08:05)
[2019-03-15] MEDS: Losartan 50 MG Tab PO SCH (08:07)
[2019-03-15] MEDS: Furosemide 20 MG Tab PO SCH ×2 (08:08→16:06)
[2019-03-15] MEDS: Magnesium Oxide 400 MG Tab PO SCH ×2 (08:08→20:15)
[2019-03-15] MEDS: Tamsulosin 0.4 MG Cap.ER PO SCH (08:08)
[2019-03-15] MEDS: Insulin Lispro 100 Unit/ML 3 ML KwikPen SUBCUT SCH ×3 (08:09→17:53)
[2019-03-15] MEDS: Insulin Glargine,Human Rec. Analog 100 Units/ML 3 ML Pen SUBCUT SCH ×2 (08:10→20:14)
[2019-03-15] MEDS: Timolol Maleate 0.5% Ophth Soln 5 ML Bottle EYEBOTH SCH ×2 (08:10→20:15)
[2019-03-15] MEDS: Lactobacillus Rhamnosus GG (Probiotic) Cap PO SCH (08:18)
--- NOTE | 2019-03-15 10:14 | PCM.SN ---
- Free Text/Narrative Note: Weekend coverage note March 15 S: Patient denies any shortness of breath, coughing. His abdomen feels a lot better. Patient had 1 large bowel movement yesterday and then 2 diarrheal stools. He has had one soft stool today. He denies any cramping Objective: Pressure 122/55 pulse 82 temperature 98.1 and O2 sat 98% on 2 L respiratory rate was 24 Patient sitting in chair in no acute distress Lungs: Scattered rales which clear with deep breath throughout Cor: S1-S2 normal without rubs, murmurs, gallops Abdomen: Soft and nontender Monitor shows some PVCs singly and then there was one couplet seen Sugars between 127 and 131 White count of 16,700 Blood cultures 2 negative from March 13 Urine culture is growing Enterobacter Chest x-ray was negative yesterday A: 1. Sepsis: I suspect this is from his gallbladder and he is responding to the Cipro and metronidazole., We'll repeat white count in the morning. Diarrhea is concerning. It seems soon for C. difficile but will check for the toxin. As his abdominal pain is better we will advance diet, take him off his IV, try to get him walking today. The Enterobacter should be covered by Cipro 2. AL: Patient has not had any further chest symptoms. He has some arrhythmias, he is mildly hypomagnesemic, continue with monitoring, increased magnesium 3. Hypoxia: Patient is encouraged to do incentive breathing and be up more Patient states he and his daughter discussed his gallbladder and he is willing to have it removed. I suggested that he needs to stabilize from his heart problem first and get over his episode of infection before this can be arranged.
[2019-03-15] MEDS: Ciprofloxacin in D5W 400 MG in Premix Bag 1 BAG IV SCH ×4 (11:10→21:00)
[2019-03-15] MEDS: Acetaminophen 325 MG Tab PO PRN (20:15)
[2019-03-15] MEDS: Enoxaparin 40 MG/0.4 ML Syringe SUBCUT SCH (20:15)
[2019-03-16] MEDS: metroNIDAZOLE/Normal Saline 500 MG in Premix Bag 1 BAG IV SCH (01:07)
[2019-03-16] MEDS: Sodium Chloride 0.9% 10 ML Syringe IV PRN (01:08)
[2019-03-16] MEDS: Omeprazole 20 MG Cap.CR PO SCH ×3 (05:08→16:25)
[2019-03-16 07:04] LABS: CHLORIDE,CL 94 mmol/L (98-107); SODIUM,NA 130 mmol/L (136-145)
[2019-03-16 07:05] LABS: ANION GAP 10.4 mmol/L (10-20)
[2019-03-16] MEDS: Ciprofloxacin 250 MG Tab PO SCH ×2 (08:34→20:00)
[2019-03-16] MEDS: Lactobacillus Rhamnosus GG (Probiotic) Cap PO SCH (08:34)
[2019-03-16] MEDS: Tamsulosin 0.4 MG Cap.ER PO SCH (08:34)
[2019-03-16] MEDS: metroNIDAZOLE 500 MG Tab PO SCH ×3 (08:34→17:58)
[2019-03-16] MEDS: Losartan 50 MG Tab PO SCH (08:34)
[2019-03-16] MEDS: atorvaSTATin 10 MG Tab PO SCH (08:34)
[2019-03-16] MEDS: Furosemide 20 MG Tab PO SCH ×2 (08:34→16:25)
[2019-03-16] MEDS: Magnesium Oxide 400 MG Tab PO SCH ×2 (08:34→20:00)
[2019-03-16] MEDS: Aspirin 81 MG Tab.EC PO SCH (08:35)
[2019-03-16] MEDS: Timolol Maleate 0.5% Ophth Soln 5 ML Bottle EYEBOTH SCH ×2 (08:36→19:59)
[2019-03-16] MEDS: Insulin Glargine,Human Rec. Analog 100 Units/ML 3 ML Pen SUBCUT SCH ×2 (08:36→19:59)
[2019-03-16] MEDS: Insulin Lispro 100 Unit/ML 3 ML KwikPen SUBCUT SCH ×3 (08:36→17:58)
[2019-03-16] MEDS: Metoprolol Succinate 25 MG Tab.ER PO SCH (08:37)
[2019-03-16] MEDS: Acetaminophen 325 MG Tab PO PRN ×2 (12:44→20:00)
--- NOTE | 2019-03-16 13:49 | US ---
[id number] US/US Abdomen Limited Exam: US Abdomen Limited Clinical Data: ABDOMINAL PAIN COMPARISON: CORRELATION IS MADE WITH THE CAT SCAN OF JUNE 04, 2018. FINDINGS: A 3.5 cm infrarenal abdominal aortic aneurysm is stable since the CAT scan of June 04, 2018. There is no free fluid. There are no gallstones seen. The gallbladder is slightly distended. The common duct is 5 mm in diameter. There is no discrete liver lesion. The right kidney shows no hydronephrosis. The pancreas is not well seen. IMPRESSION: DISTENDED GALLBLADDER. NO GALLSTONES SEEN. EARLY ANEURYSM FORMATION OF ABDOMINAL AORTA. Igor Herman MD 03/16/19 [id number] Thank you for allowing us to participate in the care of your patient.
[2019-03-16] MEDS ORDERED: Iopamidol 612 MG/ML 100 ML Bottle IVPUSH ONE (14:39)
--- NOTE | 2019-03-16 15:10 | PN ---
Progress Note for CARLOTA CARRINGTON Date: 03/16/2019 Room #: VM.215 SUBJECTIVE: This is acute hospital day #4 and was on observation 1 day prior for epigastric pain, vomiting, now continuing to spike fevers. He had been afebrile for greater than 24 hours, but then today spiked up to 101.6 at 10 a.m. He states he is feeling better. He just still has some right upper quadrant pain with pushing on his abdomen. He has not been coughing much, but he coughed when I walked out of the room. He denies any chest pain or shortness of breath. He is not nauseated. He was eating 100% of his meals 2 days ago, but less than 50% yesterday, did eat breakfast this morning. He is not having any burning with urination. His urine culture did come back positive for Enterobacter. His antibiotics which were oral Bactrim on 03/13, then switched to IV Rocephin on 03/13, then switched to IV Cipro and Flagyl on 03/15. Enterobacter was susceptible to those. Otherwise, he does have a history of gallstones last fall. His liver enzymes have been normal. He was constipated by x-ray. He was given laxatives. Tells me he had at least 3 really good bowel movements yesterday, was put on C. diff precautions. They collected a sample. The patient has not had any bowel movements today and does not think he is having diarrhea. OBJECTIVE: Vital Signs: His temperature currently 99.1 at the time of this dictation, pulse 80, blood pressure 132/55, respiratory rate 19, O2 of 96% on room air, this morning he was 94% on 2 L. General: He is in no acute distress. Heart: Regular rate and rhythm. S1, S2 without murmur noted. Abdomen: Positive bowel sounds. It is distended. There is some mild right upper quadrant tenderness, but no rebound or guarding. Lungs: Sounds are clear to auscultation bilaterally without crackles or wheezes. Extremities: Warm and dry. No edema. Mental Status: He is alert. He is orientated x3. He is answering questions appropriately. He actually is hopeful to be able to go home today. LABORATORY DATA: Lab work from today shows him to have a white count improved down to 13.1, it was up to 22.1 on the 24th. He is having hemoglobin of 10, which is stable at his baseline. Platelets 207. Sodium 130, potassium 3.4, chloride 94, bicarb 29, BUN 16, creatinine 1, calcium 8. ALT and AST normal. Albumin 2.6. ASSESSMENT AND PLAN: 1. Ugo-IG-lzwpufsfd myocardial infarction. His troponin did trend down over the weekend. He is not having any chest pain. He has a known history of coronary artery disease. He is on medical management with aspirin, statin, and beta emilio. He is on Lovenox for deep venous thrombosis prophylaxis. 2. History of peptic ulcer disease. He is currently on omeprazole. Previously on admission was getting IV Protonix. 3. Enterobacter urinary tract infection. He was not showing any urinary retention. Should be covered by the Cipro he is getting. Plan to complete a longer course given persistent fevers and history of benign prostatic hyperplasia at least 7 days. 4. Chronic anemia. Hemoglobin stable. 5. Chronic diastolic heart failure. He is not showing any signs of exacerbation. He is on oral Lasix. 6. Systemic inflammatory response with fever, unknown source. We did a right upper quadrant ultrasound which showed distended gallbladder, but no stones or acute infection. We will pursue a CT of the chest, abdomen, and pelvis. X-ray done yesterday did not show any pneumonia. I doubt that he is having any Clostridium difficile as his diarrhea or bowel movements were induced by laxatives, but a sample has already been sent. 7. Diabetes type 2 with peripheral neuropathy, on long-term insulin. He is under excellent control. We will continue with the same insulin. 8. Essential hypertension. Blood pressures are controlled. 9. Chronic arthritis with ankylosing spondylitis. 10.Obesity. 11. Probably cholecysttis PLAN: At this point, the patient will continue acute cares. We will pursue a CT of the chest, abdomen, and pelvis. He has been made n.p.o. for testing. He is off IV fluids. He is on IV Cipro and Flagyl now day #3, antibiotics day #4. I had actually switched him over to oral before he spiked a fever this afternoon. We will see how he does with the oral. For DVT prophylaxis, he is on Lovenox. We will repeat lab work tomorrow. He has been seen by Physical Therapy, who feels that he can be discharged home with home health once he is medically stable. MKA: 03/16/2019 14:43:20 MODL: 03/16/2019 15:06:28 /[id number] MTDChelle
--- NOTE | 2019-03-16 17:14 | CT ---
[id number] CT/CT Chest Abdomen Pelvis W IV Exam: CT Chest Abdomen Pelvis W IV Clinical Data: FEVER COMPARISON: CORRELATION IS MADE WITH THE EXAM OF JUNE 04, 2018. FINDINGS: There are small to moderate bilateral pleural effusions. There is granulomatous change of the right lung base. There are atheromatous changes of the great vessels. There is no infiltrate otherwise. There is no mediastinal mass or adenopathy. The gallbladder is significantly distended. There are diffuse atheromatous calcifications of the visceral vessels. There is lack of opacification of the visualized proximal lower extremity arteries. There is significant motion artifact. There is no free fluid or free air in the abdomen or pelvis. The liver and spleen show no focal abnormalities. There is no aneurysm. The visceral vessels demonstrate normal enhancement. There is mild bowel distention. The appendix is not seen. There is no hydronephrosis. The adrenals and pancreas show no acute abnormalities. The pelvis shows no mass or adenopathy. There is uncomplicated moderate colonic diverticular disease. There is no pneumatosis intestinalis or portal venous air. IMPRESSION: SIGNIFICANTLY DISTENDED GALLBLADDER. CONCERN FOR ACUTE CHOLECYSTITIS. REPORT CALLED. Igor Herman MD 03/16/19 [id number] Thank you for allowing us to participate in the care of your patient.
[2019-03-16] MEDS: Enoxaparin 40 MG/0.4 ML Syringe SUBCUT SCH (20:00)
[2019-03-17] MEDS: metroNIDAZOLE 500 MG Tab PO SCH (01:46)
[2019-03-17] MEDS: Omeprazole 20 MG Cap.CR PO SCH ×2 (05:43→06:14)
[2019-03-17 06:45] VITALS: BP 136/70
[2019-03-17 07:05] LABS: CHLORIDE,CL 94 mmol/L (98-107); SODIUM,NA 131 mmol/L (136-145)
[2019-03-17 07:08] LABS: ANION GAP 10.6 mmol/L (10-20)
[2019-03-17] MEDS: Timolol Maleate 0.5% Ophth Soln 5 ML Bottle EYEBOTH SCH (07:59)
[2019-03-17] MEDS: Insulin Lispro 100 Unit/ML 3 ML KwikPen SUBCUT SCH (07:59)
[2019-03-17] MEDS: Insulin Glargine,Human Rec. Analog 100 Units/ML 3 ML Pen SUBCUT SCH (07:59)
[2019-03-17] MEDS: Tamsulosin 0.4 MG Cap.ER PO SCH (08:00)
[2019-03-17] MEDS: Lactobacillus Rhamnosus GG (Probiotic) Cap PO SCH (08:00)
[2019-03-17] MEDS: Magnesium Oxide 400 MG Tab PO SCH (08:00)
[2019-03-17] MEDS: Metoprolol Succinate 25 MG Tab.ER PO SCH (08:00)
[2019-03-17] MEDS: Furosemide 20 MG Tab PO SCH (08:00)
[2019-03-17] MEDS: Aspirin 81 MG Tab.EC PO SCH (08:00)
[2019-03-17] MEDS: atorvaSTATin 10 MG Tab PO SCH (08:00)
[2019-03-17] MEDS: Losartan 50 MG Tab PO SCH (08:00)
[2019-03-17] MEDS: Ciprofloxacin 250 MG Tab PO SCH (08:00)
[2019-03-17] MEDS: Acetaminophen 325 MG Tab PO PRN (08:01)
--- NOTE | 2019-03-18 08:01 | DISCH ---
PRIMARY DISCHARGE DIAGNOSES: 1. Abdominal pain with leukocytosis and right upper quadrant pain, probably acute cholecystitis with ultrasound showing distended gallbladder, but no stones. CT also showing distended gallbladder. 2. Wio-QU-siuiwhzyo myocardial infarction due to acute infection. The patient has a known history of coronary artery disease and had a previous non-ST- elevation myocardial infarction last fall with an episode of sepsis. He had a 3-vessel bypass back in 2013. 3. Benign prostatic hyperplasia with mild retention. Postvoid residuals were not over 300. 4. Chronic anemia with previous admission for gastrointestinal bleeding in 11/2018 while he was taking NSAIDs. He actually has been off his aspirin, but it was restarted due to his vxq-BW-qrjwffgpg myocardial infarction. 5. Osteoporosis with previous hip fractures. 6. Type 2 diabetes, well controlled on long-term insulin with diabetic neuropathy. 7. Chronic diastolic heart failure, stable, without signs of exacerbation. EF done in June after his previous axr-RJ-qsqybrvvv myocardial infarction showed a normal EF of 65% and no wall motion abnormalities. 8. Meeting sepsis criteria with white count 22,000, 102 fever, likely source was cholecystitis. 9. Essential hypertension. Blood pressure is controlled. 10.Chronic arthritis and ankylosing spondylitis. 11.Obesity. REASON FOR ADMISSION: On the date of admission, this 83-year-old male came into the emergency room with epigastric pain. He initially had negative troponins. He was admitted for observation to rule out an acute NE. Troponin by the next morning was still negative, but trending up and then at about 12 hours since admission, his troponin was positive at 0.063, then went up to 0.078, and decreased again to 0.068 by the next morning. He had no further episodes of chest pain, but did have right upper quadrant pain. His white count which was normal on admission was up to 22,000. His lactic acid was negative. His liver enzymes were normal. His blood sugars were all under pretty good control, mostly staying under 200 with no lows during his stay. He was initially given Bactrim because of his UA showing 5 to 10 wbc's and culture did grow Enterobacter. He then had blood cultures done when he spiked a fever, but showed no growth as he was already on antibiotics and he was switched over to IV Rocephin, but because of continued fevers on 03/14, he was placed on IV Cipro and Flagyl, which he remained on IV until he was switched over to oral on 03/16 and was actually hoping to be discharged yesterday, but was still having some right upper quadrant pain and spiked a fever to 101.6 around 10 a.m. He has been afebrile since he is feeling better. He had some x-rays done initially showing constipation, therefore he received laxatives and he began having several bowel movements, therefore weekend provider did order a C. diff which did come back PCR positive, but toxin negative, and he was no longer having diarrhea, therefore he was not treated for C. diff and by the time of discharge, his white count was normal at 10. His hemoglobin was 9.9, but it remained in the 9-10 range throughout his stay, and he had no acute signs of GI bleeding. He did receive some IV Protonix, but is back on his oral PPI now. Sodium did trend down slightly to 130, was up to 131 on discharge. He was not having any confusion. He was requiring some assistance at times, but PT assessment revealed that he would not need a detention stay. He was able to get up and walk 200 feet with his walker. DISCHARGE PLANS AND INSTRUCTIONS: The patient is being discharged home to follow up in the clinic in 1-2 weeks with lab work, CMP, and CBC, and other lab work that was already due for diabetes. He will be on his aspirin 81 mg daily. He will have Cipro and Flagyl for another 3 days. Surgical referral was made. If they decide to have surgery, he may require further cardiac stress testing. EKG done during his stay did not show any acute ST changes. He did have multiple PVCs when monitored by telemetry. His potassium and magnesium were replaced. The patient does have a chronic left bundle branch block. PHYSICAL EXAMINATION: Vital Signs: On discharge did include a temperature 98.2, pulse 68, blood pressure 136/70, respiratory rate 20, and O2 of 95% on room air. General: He was in no acute distress. Heart: Regular rate and rhythm. S1, S2 without murmur. Lungs: Sounds were clear to auscultation bilaterally without crackles or wheezes. Abdomen: Positive bowel sounds. Soft, nontender. Extremities: Warm and dry. No edema. Mental Status: He is alert and orientated x3. Greater than 30 minutes spent on this discharge process. MKA: 03/17/2019 13:32:48 MODL: 03/17/2019 14:57:07 /[id number]
== END 2019-03-17 09:45 | disposition home health service (06) | DRG 280 ==
LOC: VM.ED 22:53 → VM.MS 03-13 02:00 → OBSVTOIN 03-13 15:48
PROVIDERS: ADMIT Internal Medicine; ATTEND Internal Medicine
DX: I21.4 Non-ST elevation (NSTEMI) myocardial infarction (principal); R07.9 Chest pain, unspecified; A41.9 Sepsis, unspecified organism; K81.0 Acute cholecystitis; I50.32 Chronic diastolic (congestive) heart failure; J98.11 Atelectasis; N39.0 Urinary tract infection, site not specified; N40.1 Benign prostatic hyperplasia with lower urinary tract symptoms; H40.9 Unspecified glaucoma; R33.9 Retention of urine, unspecified; N40.0 Benign prostatic hyperplasia without lower urinary tract symptoms; N52.9 Male erectile dysfunction, unspecified; B96.89 Other specified bacterial agents as the cause of diseases classified elsewhere; M48.10 Ankylosing hyperostosis [Forestier], site unspecified; D64.9 Anemia, unspecified; K59.00 Constipation, unspecified; I25.2 Old myocardial infarction; I11.0 Hypertensive heart disease with heart failure; E83.42 Hypomagnesemia; E87.6 Hypokalemia; K80.20 Calculus of gallbladder without cholecystitis without obstruction; I49.3 Ventricular premature depolarization; M81.0 Age-related osteoporosis without current pathological fracture; Z88.8 Allergy status to other drugs, medicaments and biological substances; E11.40 Type 2 diabetes mellitus with diabetic neuropathy, unspecified; E66.9 Obesity, unspecified; M45.9 Ankylosing spondylitis of unspecified sites in spine; M19.90 Unspecified osteoarthritis, unspecified site; I25.10 Atherosclerotic heart disease of native coronary artery without angina pectoris; E78.00 Pure hypercholesterolemia, unspecified; J45.909 Unspecified asthma, uncomplicated; E53.8 Deficiency of other specified B group vitamins; Z90.89 Acquired absence of other organs; Z98.49 Cataract extraction status, unspecified eye; Z79.4 Long term (current) use of insulin; Z79.82 Long term (current) use of aspirin; Z79.899 Other long term (current) drug therapy; Z95.1 Presence of aortocoronary bypass graft; Z87.11 Personal history of peptic ulcer disease; Z68.33 Body mass index [BMI] 33.0-33.9, adult
CPT/HCPCS: 36415 ×2; 71045; 71275; 74019; 80048; 80053; 81001; 82550; 82962 ×2; 83880; 84484 ×3; 85025; 85379; 85610; 87086; 87186; 93005 ×2; 94760; 96361 ×2; 96374; 99284; 99285; A9270 ×16; C9113 ×2; J1815; J2405; J7030 ×2; Q9967; 71260; 74177; 76705; 83605; 83690; 83735; 85004; 85027; 86140; 87040; 87088; 87324; 87493; 97161-GP; J0696; J0744; J1650; J3490; J7042

== ENCOUNTER 2019-04-14 13:47 | Inpatient (IN) | payer MEDICARE, OTHER, MEDICAID ==
[2019-04-14] MEDS ORDERED: Acetaminophen 500 MG Tab PO PRN (16:56)
[2019-04-14] MEDS ORDERED: oxyCODONE 5 MG Tab PO PRN (16:56)
[2019-04-14] MEDS: Insulin Lispro 100 Unit/ML 3 ML KwikPen SUBCUT SCH (18:14)
[2019-04-14] MEDS: Furosemide 20 MG Tab PO SCH (18:14)
[2019-04-14] MEDS: Omeprazole 20 MG Cap.CR PO SCH (18:14)
[2019-04-14] MEDS ORDERED: Insulin Glargine,Human Rec. Analog 100 Units/ML 3 ML Pen SUBCUT SCH (20:00)
[2019-04-14] MEDS: Tamsulosin 0.4 MG Cap.ER PO SCH (20:12)
--- NOTE | 2019-04-15 00:59 | HP ---
CHIEF COMPLAINT: Status post cholecystectomy. HISTORY OF PRESENT ILLNESS: He is postoperative day #1 for a laparoscopic surgery for symptomatic cholecystitis yesterday. He had his drain removed this morning. He was unable to empty his bladder and had postvoid of 700, so they placed a Aleman. He did get his Flomax this morning. He otherwise has a known history of BPH previously. He has had previous even bladder infections, but he is not having any burning with urination. He is having a little bit of stomach pain over the right side but not bad. He has not had a bowel movement since surgery, but he is eating well; he is passing gas. He does have known diabetes; he is on insulin; his blood sugars were excellent, like in the 120s to 150s while inpatient. Otherwise, he was kept overnight in [place], but he is up walking, actually doing quite well here, better than expected, and hopeful to go home in another day or so. ALLERGIES: Beta-blockers cause severe bradycardia. MEDICATIONS: His medication list is reviewed from [facility]. Flomax 0.4 mg daily; oxycodone 5 mg p.r.n.; Colace 100 mg as needed for constipation; Humalog 3 to 5 units with each meal, he normally just takes like once or twice a day; he takes multiple supplements; aspirin 81 mg daily; Lasix 20 mg twice daily; Tylenol; potassium 99 daily; calcium and vitamin D; Prilosec 20 mg twice daily; Lipitor; Lantus 15 in the morning, 10 in the evening; Cymbalta 20 mg daily; losartan 100 mg daily; metoprolol 25 mg daily; timolol eye drops; multivitamin; digestive enzymes; and Mag-Ox 400 mg daily. PAST MEDICAL HISTORY: 1. He does have a history of coronary artery disease, status post 3-vessel bypass back in 2013. 2. He has had a couple of non-ST MIs while admitted for sepsis. He has no chest pain. 3. Previous GI bleeding. 4. B12 deficiency. 5. Chronic diastolic heart failure. His EF has been checked in March here 55%. 6. He also has mild aortic stenosis. 7. He has previous hip fractures and osteoporosis. 8. He has diabetes type 2 with neuropathy. 9. He has previous duodenal ulcers with bleeding. 10.He has had erectile dysfunction. 11.He has had GERD. 12.He has had diffuse idiopathic skeletal hyperostosis. 13.He has had essential hypertension. 14.Hypertriglyceridemia. 15.Obesity. 16.He has had glaucoma. 17.Reactive airway disease, not asthma. 18.Peripheral vascular disease. 19.Cataracts. PAST SURGICAL HISTORY: He has had the CABG surgery; he has had this laparoscopic cholecystectomy; he has had hip surgeries with nailing, right and left, due to fracture; inguinal hernia surgery; left groin; dental extraction; tonsils and adenoidectomy; cataracts; and multiple colonoscopies. SOCIAL HISTORY: The patient is retired and . He has 3 children. He used to chew tobacco but no longer does. He is a no alcohol user. FAMILY HISTORY: His children are living. His both parents are . His mother had diabetes, and he has a brother, who is also living, who has some polio and is wheelchair-bound. REVIEW OF SYSTEMS: General: He does not believe he has had any weight changes. No fever. No chills. HEENT: No trouble swallowing. Cardiac: No chest pain or palpitations. Respiratory: No cough. No shortness of breath. Abdominal: A little bit of abdominal discomfort over his incisions, otherwise no concerns. Otherwise, all systems are reviewed and found to be negative unless otherwise stated. PHYSICAL EXAMINATION: Vital Signs: His weight is 112.9 kg, temperature 97.8, pulse 64, and blood pressure 111/47. General: He is in no acute distress. Heart: Regular rate and rhythm. S1 and S2 with murmur noted. LUNGS: Lung sounds are clear to auscultation bilaterally without crackles or wheezes. Abdomen: Positive bowel sounds. It is soft. There is some mild tenderness over the right uxqgt-ui-akb quadrant. The EVD is removed. There is some bleeding onto the dressing. The 2 x 2 is saturated, but there is no active bleeding out of the site. There are no masses or hematomas palpated. His abdomen is actually less distended than we have seen it previously. The other port sites are well healing without drainage. Extremities: Warm and dry. No edema. Mental Status: Alert and orientated x3. ASSESSMENT AND PLAN: 1. Postoperative day 1 from a laparoscopic cholecystectomy. Given the significant bleeding I see on the gauze, we will just hold off on any Lovenox. He is up. He is ambulatory. He can have juarez stockings on and be moving around in the halls. If he was bedbound, we would strongly consider Lovenox, but we will continue now on his regular aspirin. 2. Diabetes. We will continue his home insulin with q.i.d. Accu-Cheks. 3. BPH with retention. The plan is to remove his Aleman catheter tomorrow. We will give him Flomax again at bedtime and just see how he does. 4. Coronary artery disease and essential hypertension. We will continue his blood pressure medications. PLAN: The patient will be on swing bed cares, given his orthopedic limitations we will get Physical Therapy to evaluate him, but honestly, he is moving better than we have seen him in quite some time. Overall, I anticipate a short swing bed stay and to return home with home health. The patient is agreeable to this plan. He does not want to be resuscitated with CPR or intubation. MKA: 04/14/2019 18:09:27 MODL: 04/15/2019 00:53:56 /[id number] MTDChelle
[2019-04-15] MEDS: Omeprazole 20 MG Cap.CR PO SCH (06:01)
[2019-04-15 06:03] VITALS: BP 126/60; PULSE 80
[2019-04-15] MEDS ORDERED: DULoxetine 20 MG Cap PO SCH (08:00)
[2019-04-15] MEDS ORDERED: Timolol Maleate 0.5% Ophth Soln 5 ML Bottle EYEBOTH SCH (08:00)
[2019-04-15] MEDS ORDERED: Losartan 50 MG Tab PO SCH (08:00)
[2019-04-15] MEDS ORDERED: Insulin Glargine,Human Rec. Analog 100 Units/ML 3 ML Pen SUBCUT SCH (08:00)
[2019-04-15] MEDS ORDERED: Magnesium Oxide 400 MG Tab PO SCH (08:00)
[2019-04-15] MEDS ORDERED: Metoprolol Succinate 25 MG Tab.ER PO SCH (08:00)
[2019-04-15] MEDS ORDERED: Vitamin B Complex Tab.ER PO SCH (08:00)
[2019-04-15] MEDS ORDERED: atorvaSTATin 10 MG Tab PO SCH (08:00)
[2019-04-15] MEDS ORDERED: Multivitamins with Iron/Calcium/Folic Acid/Minerals Tab PO SCH (08:00)
[2019-04-15] MEDS ORDERED: Aspirin 81 MG Tab.EC PO SCH (08:00)
[2019-04-15] MEDS: Tamsulosin 0.4 MG Cap.ER PO SCH (08:05)
[2019-04-15] MEDS: Furosemide 20 MG Tab PO SCH (08:07)
[2019-04-15] MEDS: Insulin Lispro 100 Unit/ML 3 ML KwikPen SUBCUT SCH ×2 (08:07→12:07)
--- NOTE | 2019-04-17 02:12 | DISCH ---
PRIMARY DISCHARGE DIAGNOSES: 1. Status post cholecystectomy for symptomatic cholecystitis. He is discharged on postoperative day #2. 2. BPH with urinary retention. Aleman removed this morning. The patient is voiding okay. 3. Impaired mobility with underlying arthritis. The patient is ambulating well on his own and is safe to return home. 4. Diabetes. Blood sugars were under good control while he was here. 5. Previous coronary artery disease, stable on home medications. REASON FOR ADMISSION: On the date of admission, this 83-year-old was transferred here on postoperative day #1 after he had a planned laparoscopic cholecystectomy. He was admitted overnight observation in [place]. He had a drain in place that was removed prior to his transfer. He had some bleeding onto his dressing here, but nothing excessive. He had just some minimal right upper quadrant pain. He did not even take any oxycodone. He is passing gas. He had a bowel movement. He was tolerating a diet and was stable for discharge. Aleman was removed in the morning. He did get his Flomax also a dose last night. He had a postvoid residuals only around 100. Overall, he was felt to be doing well. Discharged home with Home Health to resume. The patient will need nursing for med monitoring and teaching along with PT and OT to resume cares in his home due to impaired mobility due to his severe arthritis and diabetic neuropathy and to monitor his incisions, will be nursing for his postoperative course. The patient will continue with the same postoperative restrictions as outlined by Surgery. No lifting over 20 pounds. Otherwise, I will periodically monitor this plan of care. He was last seen by me [id number] on 04/15/2019. He is homebound due to his impaired mobility from his arthritis and recent surgery. PHYSICAL EXAMINATION: Vital Signs: Discharge vitals include a temperature of 97.9, pulse 80, blood pressure 126/60, respiratory rate 20, and O2 of 96% on room air. General: He is in no acute distress. Heart: Regular rate and rhythm, S1 and S2, with murmur noted. Lungs: Lung sounds are clear to auscultation bilaterally without crackles or wheezes. Abdomen: Slightly distended, but positive bowel sounds. Soft. Really no tenderness. No fluid collections, hematoma, or drainage noted over the right upper quadrant incision. Mental Status: He is alert. He is orientated x3. Extremities: His legs are not showing any tenderness or edema. Otherwise, he will follow up in the clinic in April at his next regular scheduled time. Oxycodone removed from his list as he was not using it, but dressing will need to be changed by Home Health daily until the bleeding has stopped on the drain site. He may use Tylenol for pain. He has no lab work due. He otherwise will take his Flomax now at night. MKA: 04/16/2019 17:01:59 MODL: 04/17/2019 02:05:06 /[id number]
== END 2019-04-15 13:55 | disposition home health service (06) | DRG 445 ==
LOC: VM.MS 15:29
PROVIDERS: ADMIT Internal Medicine; ATTEND Internal Medicine
DX: K81.9 Cholecystitis, unspecified (principal); I50.32 Chronic diastolic (congestive) heart failure; N40.1 Benign prostatic hyperplasia with lower urinary tract symptoms; R33.8 Other retention of urine; E11.42 Type 2 diabetes mellitus with diabetic polyneuropathy; G62.9 Polyneuropathy, unspecified; R26.9 Unspecified abnormalities of gait and mobility; M19.90 Unspecified osteoarthritis, unspecified site; I25.10 Atherosclerotic heart disease of native coronary artery without angina pectoris; I35.0 Nonrheumatic aortic (valve) stenosis; E53.8 Deficiency of other specified B group vitamins; K21.9 Gastro-esophageal reflux disease without esophagitis; I11.0 Hypertensive heart disease with heart failure; E78.1 Pure hyperglyceridemia; E66.9 Obesity, unspecified; H40.9 Unspecified glaucoma; E11.51 Type 2 diabetes mellitus with diabetic peripheral angiopathy without gangrene; Z98.49 Cataract extraction status, unspecified eye; Z95.1 Presence of aortocoronary bypass graft; Z88.8 Allergy status to other drugs, medicaments and biological substances; Z79.01 Long term (current) use of anticoagulants; Z79.899 Other long term (current) drug therapy; I25.2 Old myocardial infarction
CPT/HCPCS: 51798; 82962; 97161-GP; A9270-GY; J1815-GY

== ENCOUNTER 2019-05-13 13:22 | Emergency (ER) | payer MEDICARE, OTHER, MEDICAID ==
[2019-05-13] MEDS: Sodium Chloride 0.9% 500 ML IV ONE (13:52)
[2019-05-13] MEDS: Sodium Chloride 0.9% 10 ML Syringe FLUSH PRN (13:53)
--- NOTE | 2019-05-13 13:53 | EDM.PDOC ---
ED HPI GENERAL MEDICAL PROBLEM - General Stated Complaint: DIZZY Time Seen by Provider: 05/13/19 13:22 Source of Information: Reports: Patient, EMS, EMS Notes Reviewed, RN History Limitations: Reports: No Limitations - History of Present Illness INITIAL COMMENTS - FREE TEXT/NARRATIVE: Pt. presents to ER with complaints of neck, L shoulder and L hip pain post syncopal episode with subsequent call. The event was witnessed by a home health nurse. Pt. was completely unresponsive for a few seconds but regained consciousness without any intervention. He states that he felt lightheaded when he stood up. He uses a walker. He complains of pain to L posterior hip/buttock and L posterior shoulder. He also struck his head, and complains of neck pain, but states that he has chronic neck discomfort. Pt. denies any recent illnesses. He states that he has had issues with anemia secondary to GI bleeding in the past but denies any bloody or tarry stools. He has been afebrile. No chest congestion, cough of sore throat. He denies any abdominal pain. No dysuria. No numbness/tingling in extremities or face. No recent illness. No chest pain or shortness of breath. Denies any palpitations. He has had no issues with speech problems. Pt. underwent a cholecystectomy on 04/13/19. He states that he has done well postoperatively. Onset: Today Location: Reports: Upper Extremity, Left, Lower Extremity, Left, Generalized Quality: Reports: Ache, Dull Severity: Mild Improves with: Reports: Rest Worsens with: Reports: Movement Associated Symptoms: Reports: Syncope. Denies: Confusion, Chest Pain, Cough, Diaphoresis, Headaches, Nausea/Vomiting, Shortness of Breath, Weakness Left hip/Inner groin Pain Score (Numeric/FACES): 4 Chronic Neck Pain Pain Score (Numeric/FACES): 2 - Related Data Allergies Allergy/AdvReac Type Severity Reaction Status Date / Time Beta-Blockers AdvReac Severe Bradycardia Verified 05/13/19 14:05 (Beta-Adrenergic Bloc Home Meds: Home Meds Losartan [Cozaar] 100 mg PO DAILY 01/25/14 [History] Magnesium Oxide 400 mg PO DAILY 01/25/14 [History] Metoprolol Succinate [Toprol XL] 25 mg PO DAILY 01/25/14 [History] Timolol Maleate [Timoptic 0.5% Ocudose] 1 drop EYEBOTH DAILY 01/25/14 [History] Insulin Lispro [Humalog] 3 - 5 unit SQ TIDMEALS 02/26/14 [History] Acetaminophen 500 - 1,000 mg PO Q6H PRN 11/15/16 [History] Multivitamin [Daily Multiple Vitamin] 1 tab PO DAILY 11/20/16 [History] Potassium 99 mg PO DAILY 11/20/16 [History] Tamsulosin [Flomax] 0.4 mg PO DAILY 11/20/16 [History] Non-Formulary Medication [NF Drug] 1 tab PO DAILY 06/04/18 [History] atorvaSTATin [Lipitor] 20 mg PO DAILY 06/04/18 [History] Insulin Glarg,Human.Rec.Analog [Lantus Solostar] 10 units SUBCUT BEDTIME #1 pen 06/06/18 [Rx] DULoxetine [Cymbalta] 20 mg PO DAILY 03/13/19 [History] Furosemide [Lasix] 20 mg PO BID 03/13/19 [History] Insulin Glarg,Human.Rec.Analog [Lantus Solostar] 15 units SUBCUT WITHBREAKFAST 03/13/19 [History] Non-Formulary Medication [NF Drug] 1 tab PO BEDTIME 03/13/19 [History] Non-Formulary Medication [NF Drug] 1 tab PO DAILY 03/13/19 [History] Non-Formulary Medication [NF Drug] 1 tab PO DAILY 03/13/19 [History] Non-Formulary Medication [NF Drug] 1 tab PO DAILY 03/13/19 [History] Non-Formulary Medication [NF Drug] 1 tab PO DAILY 03/13/19 [History] Non-Formulary Medication [NF Drug] 2 tab PO DAILY 03/13/19 [History] Non-Formulary Medication [NF Drug] 2 tab PO DAILY 03/13/19 [History] Non-Formulary Medication [NF Drug] 2 tab PO TID 03/13/19 [History] Omeprazole 20 mg PO BIDAC 03/13/19 [History] Vitamin B Complex 1 cap PO DAILY 03/13/19 [History] Aspirin [Halfprin] 81 mg PO WITHBREAKFAST tab.ec 03/17/19 [Rx] Past Medical History HEENT History: Reports: Cataract, Glaucoma Other HEENT History: chest pain Cardiovascular History: Reports: CAD, High Cholesterol, Hypertension Other Cardiovascular History: ELEVATED LFTS Respiratory History: Reports: Asthma Gastrointestinal History: Reports: GI Bleed, Other (See Below) Other Gastrointestinal History: abd. pain, DUODENAL ULCER, esophageal tear Genitourinary History: Reports: BPH Other Genitourinary History: ED Musculoskeletal History: Reports: Osteoarthritis Other Musculoskeletal History: DISH (diffuse idiopathic skeletal hypertrophy) Neurological History: Reports: Neuropathy, Diabetic Endocrine/Metabolic History: Reports: Diabetes, Type II Other Endocrine/Metabolic History: pure hyperglyceridemea Hematologic History: Reports: Anemia, B12 Deficiency Other Hematologic History: elevated LFTs (Liver function tests) - Infectious Disease History Infectious Disease History: Reports: C-Difficile - Past Surgical History HEENT Surgical History: Reports: Adenoidectomy, Cataract Surgery, Tonsillectomy Cardiovascular Surgical History: Reports: Coronary Artery Bypass Musculoskeletal Surgical History: Reports: Other (See Below) Social & Family History - Caffeine Use Caffeine Use: Reports: Coffee, Soda ED ROS GENERAL - Review of Systems Review Of Systems: See Below Constitutional: Reports: No Symptoms. Denies: Fever, Chills, Malaise, Weakness , Fatigue, Night Sweats, Diaphoresis, Decreased Appetite, Weight Loss HEENT: Reports: No Symptoms Respiratory: Reports: No Symptoms Cardiovascular: Reports: Lightheadedness, Syncope, Other (symptoms have since resolved.) Endocrine: Reports: No Symptoms GI/Abdominal: Denies: Black Stool, Bloody Stool, Hematemesis, Hematochezia, Melena, Nausea, Vomiting : Reports: No Symptoms. Denies: Discharge, Dysuria, Frequency, Hematuria, Urgency Musculoskeletal: Reports: Neck Pain, Shoulder Pain, Other (L hip/pelvic pain) Skin: Reports: No Symptoms Neurological: Reports: No Symptoms. Denies: Dizziness, Headache Psychiatric: Reports: No Symptoms Hematologic/Lymphatic: Reports: No Symptoms Immunologic: Reports: No Symptoms ED EXAM, GENERAL - Physical Exam Exam: See Below Exam Limited By: No Limitations General Appearance: Alert, WD/WN, No Apparent Distress Eye Exam: Bilateral Eye: EOMI, PERRL Nose: Normal Inspection, No Blood Throat/Mouth: Normal Inspection, Normal Lips, Normal Teeth, Normal Gums, Normal Oropharynx, Normal Voice, No Airway Compromise Head: Atraumatic, Normocephalic Neck: Normal Inspection, Supple, Other (midline cervical spine pain) Respiratory/Chest: No Respiratory Distress, Lungs Clear, Normal Breath Sounds, No Accessory Muscle Use, Chest Non-Tender Cardiovascular: Normal Peripheral Pulses, Regular Rate, Rhythm, No Edema, No Gallop, No JVD, No Murmur, No Rub Peripheral Pulses: 4+: Radial (L), Radial (R), Posterior Tibial (L), Posterior Tibial (R) GI/Abdominal: Normal Bowel Sounds, Soft, Non-Tender, No Organomegaly, No Distention, No Mass, Pelvis Stable (Male) Exam: Deferred Rectal (Males) Exam: Deferred Back Exam: Normal Inspection Extremities: No Pedal Edema, Normal Capillary Refill, Other (pain to medial L hip and buttock, pain to posterior L shoulder area.) Neurological: Alert, Oriented, CN II-XII Intact, Normal Cognition, Normal Reflexes, No Motor/Sensory Deficits Psychiatric: Normal Affect, Normal Mood Skin Exam: Warm, Dry, Intact, Normal Color, No Rash Lymphatic: No Adenopathy Course - Vital Signs Last Recorded V/S: Last Vital Signs Temp 36.4 C 05/13/19 14:06 Pulse 65 05/13/19 14:06 Resp 16 05/13/19 14:06 BP 118/54 L 05/13/19 14:06 Pulse Ox 96 05/13/19 14:06 - Orders/Labs/Meds Orders: Active Orders 24 hr Category Date Time Status UA W/MICROSCOPIC [URIN] Stat Lab 05/13/19 13:31 Ordered Morphine Med 05/13/19 15:11 Once 4 mg IVPUSH ONETIME ONE Sodium Chloride 0.9% [Saline Flush] Med 05/13/19 13:30 Active 10 ml FLUSH ASDIRECTED PRN Peripheral IV Insertion Adult [OM.PC] Routine Oth 05/13/19 13:31 Ordered Medication Orders Morphine Sulfate (Morphine) 4 mg IVPUSH ONETIME ONE Stop: 05/13/19 15:12 Sodium Chloride (Saline Flush) 10 ml FLUSH ASDIRECTED PRN PRN Reason: Keep Vein Open Last Admin: 05/13/19 13:53 Dose: 10 ml Labs: Laboratory Tests 05/13/19 05/13/19 05/13/19 Range/Units 13:49 13:49 13:49 WBC 10.9 H (4.0-10.0) x10^3/uL RBC 3.26 L (4.5-6.0) x10^6/uL Hgb 9.1 L (14.0-18.0) g/dL Hct 28.4 L (40.0-52.0) % MCV 87.1 (78.0-93.0) fL MCH 27.9 (26.0-32.0) pg MCHC 32.0 (32.0-36.0) g/dL RDW Coeff of Taz 15.2 H (10.0-15.0) % Plt Count 296 (130-400) x10^3/uL Add Manual Diff Yes Neutrophils % (Manual) 74 (50-80) % Band Neutrophils % 3 (0-6) % Lymphocytes % (Manual) 11 L (25-50) % Monocytes % (Manual) 10 (2-11) % Eosinophils % (Manual) 2 (0-4) % Platelet Estimate Adequate PT 11.4 (10.0-12.8) SEC INR 1.0 L (2.0-3.5) Sodium 133 L (69-191) mmol/L Potassium 4.5 (1.5-9.9) mmol/L Chloride 97 L (54-184) mmol/L Carbon Dioxide 27 (21-32) mmol/L Anion Gap 13.5 (10-20) mmol/L BUN 18 (7-18) mg/dL Creatinine 1.0 (0.70-1.30) mg/dL Est Cr Clr Drug Dosing 60.36 mL/min Estimated GFR (MDRD) > 60 Glucose 175 H (74-106) mg/dL Calcium 8.1 L (8.5-10.1) mg/dL Corrected Calcium 9.22 (8.5-10.1) mg/dL Phosphorus 3.8 (2.6-4.7) mg/dL Magnesium 1.8 (1.8-2.4) mg/dL Total Bilirubin 0.4 (0.2-1.0) mg/dL AST 27 (15-37) U/L ALT 31 (16-63) U/L Alkaline Phosphatase 118 H (46-116) U/L Troponin I < 0.017 (<=0.056) ng/mL C-Reactive Protein 6.4 H (<=0.9) mg/dL Total Protein 7.3 (6.4-8.2) g/dL Albumin 2.6 L (3.4-5.0) g/dL Globulin 4.7 Albumin/Globulin Ratio 0.55 TSH, Ultra Sensitive 4.129 H (0.358-3.74) uIU/mL Meds: Medications Generic Name Dose Route Start Last Admin Trade Name Freq PRN Reason Stop Dose Admin Morphine Sulfate 4 mg 05/13/19 15:11 Morphine IVPUSH 05/13/19 15:12 ONETIME ONE Sodium Chloride 10 ml 05/13/19 13:30 05/13/19 13:53 Saline Flush FLUSH 10 ml ASDIRECTED PRN Administration Keep Vein Open Discontinued Medications Generic Name Dose Route Start Last Admin Trade Name Freq PRN Reason Stop Dose Admin Sodium Chloride 500 mls @ 1,000 mls/hr 05/13/19 13:49 05/13/19 13:52 Normal Saline IV 05/13/19 14:18 1,000 mls/hr .BOLUS ONE Administration - Radiology Interpretation Free Text/Narrative:: CT brain negative CT c spine shows fracture of the anterior longitudinal ligament at C5-C6. Radiographs of L shoulder negative Radiographs of L hip are negative for acute pathology 1 view chest x-ray is negative. Departure - Departure Time of Disposition: 15:13 Disposition: DC/Tfer to [facility] 02 Clinical Impression: Injury to ligament of cervical spine, Episode of syncope - Discharge Information - My Orders Last 24 Hours: My Active Orders 05/13/19 13:30 Sodium Chloride 0.9% [Saline Flush] 10 ml FLUSH ASDIRECTED PRN 05/13/19 13:31 UA W/MICROSCOPIC [URIN] Stat Peripheral IV Insertion Adult [OM.PC] Routine 05/13/19 15:11 Morphine 4 mg IVPUSH ONETIME ONE - Assessment/Plan Last 24 Hours: My Active Orders 05/13/19 13:30 Sodium Chloride 0.9% [Saline Flush] 10 ml FLUSH ASDIRECTED PRN 05/13/19 13:31 UA W/MICROSCOPIC [URIN] Stat Peripheral IV Insertion Adult [OM.PC] Routine 05/13/19 15:11 Morphine 4 mg IVPUSH ONETIME ONE Plan: Pt. will be transferred to [facility]. He has an unstable ligamentous cervical spine injury. Cervical collar was placed. CMS intact pre and post placement. Pain was given IV morphine for pain control. Dr. Singer is accepting. He will be transported by [facility] ground ambulance.
[2019-05-13 14:07] VITALS: BP 118/54; PULSE 65
[2019-05-13 14:23] LABS: ANION GAP 13.5 mmol/L (10-20); CHLORIDE,CL 97 mmol/L (54-184); SODIUM,NA 133 mmol/L (69-191)
--- NOTE | 2019-05-13 14:36 | CT ---
[id number] CT/CT Head WO IV EXAM: CT Head WO IV CLINICAL DATA: TRAUMA SYNCOPE COMPARISON: NO PREVIOUS SIMILAR EXAM IS AVAILABLE FOR COMPARISON. FINDINGS: There is no mass or mass effect. There is no hemorrhage or hydrocephalus. There are no extra-axial fluid collections. There are no sites of abnormal attenuation. IMPRESSION: NO PLAIN CT EVIDENCE OF ACUTE INTRACRANIAL PROCESS. Igor Herman MD 05/13/19 0862 Thank you for allowing us to participate in the care of your patient.
--- NOTE | 2019-05-13 14:40 | CT ---
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 CONCERN FOR UNSTABLE FRACTURE Igor Herman MD 05/13/19 1765 Thank you for allowing us to participate in the care of your patient.
--- NOTE | 2019-05-13 14:48 | CR ---
[id number] RAD/RAD Chest PA or AP 1V EXAM: RAD Chest PA or AP 1V INDICATION: SYNCOPE. COMPARISON: March 14, 2019. DISCUSSION: Median sternotomy wires. Cardiomediastinal silhouette is stable in size and contour. No infiltrate, effusion, pneumothorax, or edema. Low lung volumes associated vascular crowding. IMPRESSION: No acute cardiopulmonary abnormality. Kan Todd DO 05/13/19 1446 Thank you for allowing us to participate in the care of your patient.
--- NOTE | 2019-05-13 14:49 | CR ---
[id number] RAD/RAD Pelvis 1V W 2V Left Hip EXAM: 2 VIEWS LEFT HIP. INDICATION: FALL, LEFT HIP PAIN. COMPARISON: June 04, 2018. DISCUSSION: There are postsurgical changes of the proximal femur bilaterally. No evidence of hardware failure or loosening. No definite acute fracture or dislocation. Advanced degenerative changes of the hips bilaterally. Degenerative changes throughout the lower lumbar spine, SI joints and pubic symphysis. Vascular calcifications bilaterally. IMPRESSION: 1. NO DEFINITE ACUTE OSSEOUS ABNORMALITIES. CHRONIC CHANGES ABOVE. Kan Todd DO 05/13/19 1448 Thank you for allowing us to participate in the care of your patient.
--- NOTE | 2019-05-13 14:50 | CR ---
[id number] RAD/RAD Shoulder Left 2V Min EXAM: 3 VIEWS LEFT SHOULDER. INDICATION: FALL, HIP AND SHOULDER PAIN. COMPARISON: None. DISCUSSION: No fracture, dislocation or other acute osseous abnormality. Moderate moderate degenerative changes of the left glenohumeral joint as well as the acromioclavicular joint. The visualized lung is clear. IMPRESSION: 1. No acute osseous abnormalities. Kan Todd DO 05/13/19 1449 Thank you for allowing us to participate in the care of your patient.
[2019-05-13] MEDS: Morphine 4 MG/ML Syringe IVPUSH ONE (15:20)
== END 2019-05-13 15:47 | disposition short-term general hospital (02) ==
LOC: VM.ED 13:22 → SUPCPDRO 13:22 → VM.ED 15:47
DX: R55 Syncope and collapse (principal); S19.9XXA Unspecified injury of neck, initial encounter; I10 Essential (primary) hypertension; E11.9 Type 2 diabetes mellitus without complications; E11.40 Type 2 diabetes mellitus with diabetic neuropathy, unspecified; E78.00 Pure hypercholesterolemia, unspecified; M19.90 Unspecified osteoarthritis, unspecified site; Z88.8 Allergy status to other drugs, medicaments and biological substances; Z79.4 Long term (current) use of insulin; W19.XXXA Unspecified fall, initial encounter
CPT/HCPCS: 36415; 70450; 71045; 72125; 73030-LT; 80053; 81001; 83735; 84100; 84443; 84484; 85025; 85610; 86140; 93005; 96361; 96374; 99284-GF; 99285-25; J2270; J7030

== ENCOUNTER 2019-06-12 10:21 | Inpatient (IN) | payer MEDICARE, OTHER, MEDICAID ==
[2019-06-12] MEDS ORDERED: Acetaminophen 325 MG Tab PO PRN (12:41)
--- NOTE | 2019-06-12 16:34 | HP ---
CHIEF COMPLAINT: Neck pain. HISTORY OF PRESENT ILLNESS: This is an 83-year-old male who unfortunately suffered a fall and fell backwards on 05/13/2019, hitting the back of his neck. He lost consciousness. He was taken to the emergency room and found to have a fracture. On 05/15/2019, he underwent an extensive neck surgery with C5-6 decompression and anterior fusion and C2 through T4 posterior fusion and C5 laminectomy. He reportedly had a 12-hour procedure losing about 2 L of blood and fluid. He was hypotensive. He was in the ICU and intubated for airway protection after the procedure. He had some swallowing problems even before the surgery, but states they got much worse after requiring him to get a PEG tube for feedings. He now feels his swallowing is back to what it was before this happened. He did pass his swallow study at [facility] and they allowed him a diet, but they continued the tube feedings at night. He otherwise does have a history of coronary artery disease, but denies any chest pain, no shortness of breath. Blood pressures have been running lower. He has been on Lasix. It looks like they increased him up to 60 mg daily. He states he still has some neck pain. He takes a pain pill at night to sleep. However, he is currently not on any narcotic pain pills or even Tylenol that was ordered for him. He was on Oxy 5 and 10 mg dosing when he was transferred over to [facility] on 05/22/2019. PAST SURGICAL HISTORY: Surgically, he has recently had his gallbladder laparoscopically taken out. He has had cataracts. He has had dental extractions. He has had tonsillectomy. He has had hip nailing bilaterally, inguinal hernia surgery. He has had CABG surgery x3 vessels. PAST MEDICAL HISTORY: Also includes coronary artery disease, chronic anemia, previous GI bleeding, B12 deficiency, BPH, cholecystectomy, osteoporosis and refusing treatments, chronic diastolic heart failure, diabetes type 2 with neuropathy, diffuse idiopathic skeletal hyperostosis, obesity, essential hypertension, hypertriglyceridemia, peripheral vascular disease, reactive airway disease, asthma, venous insufficiency. ALLERGIES: Otherwise, the patient's allergies include beta blockers because of bradycardia. MEDICATIONS: His medication list is reviewed from by [facility]: Lantus 15 in the morning and 10 at night. He is on a sliding scale t.i.d. with meals, lower dose. Tylenol I ordered as needed for pain, aspirin 81 mg daily, Lipitor 20 mg daily, vitamin D 100 mcg daily, Cymbalta 20 mg daily. Lasix 40 mg in the morning and 20 at night, I held the 20 mg dose at night. Cozaar 100 mg daily, magnesium 400 daily, metoprolol 12.5 b.i.d., multivitamin daily, Prilosec 20 b.i.d., and timolol eye drops. SOCIAL HISTORY: The patient had been living independently with [facility] nurse checking on him and helping with medications. He was living in an apartment. He is and retired. He has 3 children. He is a nonsmoker. FAMILY HISTORY: Both parents are . One had diabetes and he has a brother who is living who has polio and is in a wheelchair. REVIEW OF SYSTEMS: General: He is uncertain if he has lost any weight. He was around up 248 pounds back in March. Actually, it looks like he might be down about 8 pounds since then. He has no fever, no chills. HEENT: He does have chronic trouble swallowing. It is no worse. He has a neck pain from surgery, but it is improving. Cardiac: No chest pain. No palpitations. Respiratory: He is not coughing. He is not short of breath. Abdomen: No abdominal pain, nausea, vomiting, diarrhea, or constipation. Extremities: No edema. Otherwise, all systems reviewed and found to be negative unless otherwise stated. Neurologic: Neurologically, he has not been confused. PHYSICAL EXAMINATION: Vital Signs: Weight is 108.8 kg, temperature 98.3, pulse 60, blood pressure 99/48, respiratory rate 16, and O2 100% on room air. General: He is in no acute distress. Neck: His neck has a brace in place. The anterior incision is healing excellently. However, posteriorly, he has a few Steri-Strips in place. There is some redness. There is no drainage. There is no warmth to suggest infection. It possibly could just be irritated from wearing the brace. Heart: Regular rate and rhythm without murmur. Lungs: Lung sounds are clear to auscultation bilaterally without crackles or wheezes. Abdomen: Has positive bowel sounds. Soft, nontender. Extremities: Warm and dry. No edema. Mental Status: Alert and orientated x3. Psychiatric: He is not depressed or anxious. LABORATORY DATA: Lab work from 06/08/2019 did show a sodium of 131, BUN 26, creatinine 0.6, hemoglobin was 9.8, albumin 2.9. ASSESSMENT: 1. Cervical neck fracture due to fall, status post cervical surgery as discussed above, C5-6 anterior cervical decompression and fusion, C2 through T4 posterior spinal fusion, and C5 laminectomy on 05/15/2019. 2. Dysphagia, improved. He passed a swallowing eval. 3. Moderate malnutrition. We will continue tube feeds until we are ensured that he is eating adequately to help him with healing. I did put in a director automotive consult and they decided to hold the TF and do calorie counts. 4. Chronic anemia. I will check blood work on Saturday. 5. Mild hyponatremia. Blood work Saturday. 6. Essential hypertension. Blood pressure is actually low. I am going to hold the bedtime Lasix and put holding parameters on the losartan. 7. Chronic diastolic heart failure, stable. He is euvolemic. We will continue to monitor. 8. History of peptic ulcer disease and gastroesophageal reflux disease. He is on the omeprazole. 9. Diabetic neuropathy, recently started on duloxetine. 10.Benign prostatic hypertrophy. It appears his tamsulosin was not ordered on discharge. If any voiding concerns, we will bladder scan and get that restarted. 11.Pain control. We will do Tylenol for now. 12.Type 2 diabetes. He is on q.i.d. Accu-Cheks. He is on his home insulin and meal insulin ordered per his sliding scale. We will see how that goes. PLAN: At this point, the patient will be admitted for swing bed cares. We will have Physical Therapy assess him later today to see his level of being up. He is hoping to be out here in 2 weeks and to be up without assistance. We will also get Speech Therapy and OT involved. He is a code level 1. For DVT prophylaxis, he is not currently on anything. We will order the AGUILA stockings. MKA: 06/12/2019 15:49:41 MODL: 06/12/2019 16:23:44 /[id number] DERIC
[2019-06-12] MEDS: Insulin Lispro 100 Unit/ML 3 ML KwikPen SUBCUT SCH (17:24)
[2019-06-12] MEDS: Cholecalciferol (Vitamin D3) 25 MCG Tab PO SCH (17:24)
[2019-06-12] MEDS: Multivitamin, Stress Formula with Zinc Tab PO SCH (17:24)
[2019-06-12] MEDS ORDERED: Insulin Lispro 100 Unit/ML 3 ML KwikPen SUBCUT SCH (18:00)
[2019-06-12] MEDS: Metoprolol Tartrate 25 MG Tab PO SCH (20:22)
[2019-06-12] MEDS: Omeprazole 20 MG Cap.CR PO SCH (20:22)
[2019-06-12] MEDS: Timolol Maleate 0.5% Ophth Soln 5 ML Bottle EYEBOTH SCH (20:24)
[2019-06-12] MEDS: Insulin Glargine,Human Rec. Analog 100 Units/ML 3 ML Pen SUBCUT SCH (20:25)
[2019-06-13] MEDS: Losartan 50 MG Tab PO SCH (08:11)
[2019-06-13] MEDS: Furosemide 40 MG Tab PO SCH (08:11)
[2019-06-13] MEDS: Metoprolol Tartrate 25 MG Tab PO SCH ×2 (08:12→20:02)
[2019-06-13] MEDS: DULoxetine 20 MG Cap PO SCH (08:12)
[2019-06-13] MEDS: Omeprazole 20 MG Cap.CR PO SCH ×2 (08:13→20:01)
[2019-06-13] MEDS: atorvaSTATin 10 MG Tab PO SCH (08:13)
[2019-06-13] MEDS: Timolol Maleate 0.5% Ophth Soln 5 ML Bottle EYEBOTH SCH ×2 (08:14→20:01)
[2019-06-13] MEDS: Aspirin 81 MG Tab.EC PO SCH (08:14)
[2019-06-13] MEDS: Magnesium Oxide 400 MG Tab PO SCH (08:14)
[2019-06-13] MEDS: Insulin Glargine,Human Rec. Analog 100 Units/ML 3 ML Pen SUBCUT SCH ×2 (08:15→20:01)
[2019-06-13] MEDS: Insulin Lispro 100 Unit/ML 3 ML KwikPen SUBCUT SCH ×3 (08:17→18:09)
[2019-06-13] MEDS: Multivitamin, Stress Formula with Zinc Tab PO SCH (18:06)
[2019-06-13] MEDS: Cholecalciferol (Vitamin D3) 25 MCG Tab PO SCH (18:06)
[2019-06-14] MEDS: Metoprolol Tartrate 25 MG Tab PO SCH ×2 (07:32→20:04)
[2019-06-14] MEDS: Aspirin 81 MG Tab.EC PO SCH (07:32)
[2019-06-14] MEDS: Omeprazole 20 MG Cap.CR PO SCH ×2 (07:32→20:04)
[2019-06-14] MEDS: Losartan 50 MG Tab PO SCH (07:33)
[2019-06-14] MEDS: atorvaSTATin 10 MG Tab PO SCH (07:33)
[2019-06-14] MEDS: Magnesium Oxide 400 MG Tab PO SCH (07:33)
[2019-06-14] MEDS: Furosemide 40 MG Tab PO SCH (07:33)
[2019-06-14] MEDS: DULoxetine 20 MG Cap PO SCH (07:33)
[2019-06-14] MEDS: Insulin Glargine,Human Rec. Analog 100 Units/ML 3 ML Pen SUBCUT SCH ×2 (07:43→20:10)
[2019-06-14] MEDS: Timolol Maleate 0.5% Ophth Soln 5 ML Bottle EYEBOTH SCH ×2 (07:43→20:09)
[2019-06-14] MEDS: Insulin Lispro 100 Unit/ML 3 ML KwikPen SUBCUT SCH ×3 (07:45→17:47)
--- NOTE | 2019-06-14 08:14 | PCM.SN ---
- Free Text/Narrative Note: Patient with urinary frequency. No incontinence. No leg weakness. Will check a u /a and resume his flomax as this has been held since admission due to low blood pressures. BP's now acceptable.
[2019-06-14] MEDS: Cholecalciferol (Vitamin D3) 25 MCG Tab PO SCH (16:23)
[2019-06-14] MEDS: Multivitamin, Stress Formula with Zinc Tab PO SCH (16:23)
[2019-06-14] MEDS: Tamsulosin 0.4 MG Cap.ER PO SCH (20:04)
[2019-06-15 07:29] LABS: CHLORIDE,CL 100 mmol/L (98-107); SODIUM,NA 136 mmol/L (136-145)
[2019-06-15 07:31] LABS: ANION GAP 11.4 mmol/L (10-20)
[2019-06-15] MEDS: DULoxetine 20 MG Cap PO SCH (08:42)
[2019-06-15] MEDS: Furosemide 40 MG Tab PO SCH (08:42)
[2019-06-15] MEDS: Magnesium Oxide 400 MG Tab PO SCH (08:42)
[2019-06-15] MEDS: Omeprazole 20 MG Cap.CR PO SCH ×2 (08:42→17:30)
[2019-06-15] MEDS: atorvaSTATin 10 MG Tab PO SCH (08:42)
[2019-06-15] MEDS: Insulin Glargine,Human Rec. Analog 100 Units/ML 3 ML Pen SUBCUT SCH ×2 (08:42→19:53)
[2019-06-15] MEDS: Aspirin 81 MG Tab.EC PO SCH (08:42)
[2019-06-15] MEDS: Timolol Maleate 0.5% Ophth Soln 5 ML Bottle EYEBOTH SCH ×2 (08:43→19:53)
[2019-06-15] MEDS: Insulin Lispro 100 Unit/ML 3 ML KwikPen SUBCUT SCH ×3 (08:43→17:43)
[2019-06-15] MEDS: Losartan 50 MG Tab PO SCH (08:44)
[2019-06-15] MEDS: Metoprolol Tartrate 25 MG Tab PO SCH ×2 (08:44→19:51)
[2019-06-15] MEDS: Cholecalciferol (Vitamin D3) 25 MCG Tab PO SCH (17:30)
[2019-06-15] MEDS: Multivitamin, Stress Formula with Zinc Tab PO SCH (17:30)
[2019-06-15] MEDS: Tamsulosin 0.4 MG Cap.ER PO SCH (19:47)
[2019-06-16] MEDS: DULoxetine 20 MG Cap PO SCH (09:44)
[2019-06-16] MEDS: Magnesium Oxide 400 MG Tab PO SCH (09:44)
[2019-06-16] MEDS: Furosemide 40 MG Tab PO SCH (09:44)
[2019-06-16] MEDS: atorvaSTATin 10 MG Tab PO SCH (09:44)
[2019-06-16] MEDS: Omeprazole 20 MG Cap.CR PO SCH ×2 (09:45→17:04)
[2019-06-16] MEDS: Losartan 50 MG Tab PO SCH (09:45)
[2019-06-16] MEDS: Metoprolol Tartrate 25 MG Tab PO SCH ×2 (09:45→20:15)
[2019-06-16] MEDS: Insulin Glargine,Human Rec. Analog 100 Units/ML 3 ML Pen SUBCUT SCH ×2 (09:46→20:16)
[2019-06-16] MEDS: Timolol Maleate 0.5% Ophth Soln 5 ML Bottle EYEBOTH SCH ×2 (09:46→20:17)
[2019-06-16] MEDS: Insulin Lispro 100 Unit/ML 3 ML KwikPen SUBCUT SCH ×3 (09:46→18:32)
[2019-06-16] MEDS: Aspirin 81 MG Tab.EC PO SCH (10:41)
[2019-06-16] MEDS: Cholecalciferol (Vitamin D3) 25 MCG Tab PO SCH (17:04)
[2019-06-16] MEDS: Multivit-Minerals/Ferrous Gluc 9 MG/15 ML 15 ml Cup PO SCH (17:04)
[2019-06-16] MEDS: Tamsulosin 0.4 MG Cap.ER PO SCH (20:15)
[2019-06-17] MEDS: Omeprazole 20 MG Cap.CR PO SCH ×3 (05:40→17:48)
[2019-06-17] MEDS: Insulin Lispro 100 Unit/ML 3 ML KwikPen SUBCUT SCH (08:45)
--- NOTE | 2019-06-17 08:46 | PCM.SN ---
- Free Text/Narrative Note: Patient is eating better now and blood sugar are going up after meals particularly at bedtime. Will schedule 3 units in AM and 5 with lunch and supper now he is getting only around 1 unit. Can readjust as needed but this is similar to what he is doing at home. QID accu checks to continue. Nutrition was also following his intake I don't think he is going to require any further tube feeds. He still has trouble with pills some vitamins changed to liquid because they were put down the G-tube and it plugged but it is working again. PT/OT have completed therapies but he is still working with speech.
[2019-06-17] MEDS: Magnesium Oxide 400 MG Tab PO SCH (09:26)
[2019-06-17] MEDS: Aspirin 81 MG Tab.Chew PO SCH (09:26)
[2019-06-17] MEDS: atorvaSTATin 10 MG Tab PO SCH (09:27)
[2019-06-17] MEDS: Metoprolol Tartrate 25 MG Tab PO SCH ×2 (09:27→20:06)
[2019-06-17] MEDS: DULoxetine 20 MG Cap PO SCH (09:28)
[2019-06-17] MEDS: Furosemide 40 MG Tab PO SCH (09:28)
[2019-06-17] MEDS: Losartan 50 MG Tab PO SCH (09:28)
[2019-06-17] MEDS: Insulin Glargine,Human Rec. Analog 100 Units/ML 3 ML Pen SUBCUT SCH ×2 (09:29→20:00)
[2019-06-17] MEDS: Timolol Maleate 0.5% Ophth Soln 5 ML Bottle EYEBOTH SCH ×2 (09:30→20:01)
[2019-06-17] MEDS: Multivit-Minerals/Ferrous Gluc 9 MG/15 ML 15 ml Cup PO SCH (17:47)
[2019-06-17] MEDS: Cholecalciferol (Vitamin D3) 25 MCG Tab PO SCH (17:47)
[2019-06-17] MEDS ORDERED: Insulin Lispro 100 Unit/ML 3 ML KwikPen SUBCUT SCH (18:00)
[2019-06-17] MEDS: Tamsulosin 0.4 MG Cap.ER PO SCH (19:59)
[2019-06-18] MEDS ORDERED: Insulin Lispro 100 Unit/ML 3 ML KwikPen SUBCUT SCH (08:00)
[2019-06-18] MEDS: Omeprazole 20 MG Cap.CR PO SCH ×2 (08:18→17:41)
[2019-06-18] MEDS: Losartan 50 MG Tab PO SCH (08:19)
[2019-06-18] MEDS: Magnesium Oxide 400 MG Tab PO SCH (08:19)
[2019-06-18] MEDS: Aspirin 81 MG Tab.Chew PO SCH (08:19)
[2019-06-18] MEDS: DULoxetine 20 MG Cap PO SCH (08:20)
[2019-06-18] MEDS: Metoprolol Tartrate 25 MG Tab PO SCH ×2 (08:20→21:27)
[2019-06-18] MEDS: atorvaSTATin 10 MG Tab PO SCH (08:20)
[2019-06-18] MEDS: Furosemide 40 MG Tab PO SCH (08:20)
[2019-06-18] MEDS: Insulin Glargine,Human Rec. Analog 100 Units/ML 3 ML Pen SUBCUT SCH ×2 (08:24→21:30)
[2019-06-18] MEDS: Timolol Maleate 0.5% Ophth Soln 5 ML Bottle EYEBOTH SCH ×2 (08:25→21:29)
[2019-06-18] MEDS: Insulin Lispro 100 Unit/ML 3 ML KwikPen SUBCUT SCH ×3 (08:26→17:43)
[2019-06-18] MEDS: Multivit-Minerals/Ferrous Gluc 9 MG/15 ML 15 ml Cup PO SCH (17:42)
[2019-06-18] MEDS: Cholecalciferol (Vitamin D3) 25 MCG Tab PO SCH (17:42)
[2019-06-18] MEDS: Tamsulosin 0.4 MG Cap.ER PO SCH (21:27)
[2019-06-19] MEDS: Omeprazole 20 MG Cap.CR PO SCH ×2 (07:38→16:30)
[2019-06-19] MEDS: atorvaSTATin 10 MG Tab PO SCH (08:45)
[2019-06-19] MEDS: Losartan 50 MG Tab PO SCH (08:45)
[2019-06-19] MEDS: Magnesium Oxide 400 MG Tab PO SCH (08:45)
[2019-06-19] MEDS: DULoxetine 20 MG Cap PO SCH (08:46)
[2019-06-19] MEDS: Furosemide 40 MG Tab PO SCH (08:46)
[2019-06-19] MEDS: Metoprolol Tartrate 25 MG Tab PO SCH ×2 (08:46→20:08)
[2019-06-19] MEDS: Aspirin 81 MG Tab.Chew PO SCH (08:46)
[2019-06-19] MEDS: Insulin Glargine,Human Rec. Analog 100 Units/ML 3 ML Pen SUBCUT SCH ×2 (08:49→20:09)
[2019-06-19] MEDS: Timolol Maleate 0.5% Ophth Soln 5 ML Bottle EYEBOTH SCH ×2 (08:51→20:11)
[2019-06-19] MEDS: Insulin Lispro 100 Unit/ML 3 ML KwikPen SUBCUT SCH ×3 (08:52→17:34)
[2019-06-19] MEDS: Cholecalciferol (Vitamin D3) 25 MCG Tab PO SCH (16:31)
[2019-06-19] MEDS: Multivit-Minerals/Ferrous Gluc 9 MG/15 ML 15 ml Cup PO SCH (16:31)
[2019-06-19] MEDS: Tamsulosin 0.4 MG Cap.ER PO SCH (20:08)
[2019-06-20] MEDS: Omeprazole 20 MG Cap.CR PO SCH ×2 (06:12→17:01)
[2019-06-20] MEDS: Metoprolol Tartrate 25 MG Tab PO SCH ×2 (08:04→20:09)
[2019-06-20] MEDS: DULoxetine 20 MG Cap PO SCH (08:04)
[2019-06-20] MEDS: Furosemide 40 MG Tab PO SCH (08:04)
[2019-06-20] MEDS: Aspirin 81 MG Tab.Chew PO SCH (08:04)
[2019-06-20] MEDS: Magnesium Oxide 400 MG Tab PO SCH (08:05)
[2019-06-20] MEDS: atorvaSTATin 10 MG Tab PO SCH (08:06)
[2019-06-20] MEDS: Losartan 50 MG Tab PO SCH (08:08)
[2019-06-20] MEDS: Insulin Glargine,Human Rec. Analog 100 Units/ML 3 ML Pen SUBCUT SCH ×2 (08:09→20:11)
[2019-06-20] MEDS: Timolol Maleate 0.5% Ophth Soln 5 ML Bottle EYEBOTH SCH ×2 (08:10→20:11)
[2019-06-20] MEDS: Insulin Lispro 100 Unit/ML 3 ML KwikPen SUBCUT SCH ×3 (08:10→17:02)
--- NOTE | 2019-06-20 10:45 | PN ---
Progress Note for CARLOTA CARRINGTON Date: 06/20/2019 Room #: VM.221 SUBJECTIVE: This is an 83-year-old on swing bed for recovery after a cervical neck fracture. The patient has been eating good over 1000 calories per day, in fact, asking for more regular Cokes. We have not had to use any tube feedings. The dietitian has put in a few assessments. He is swallowing okay and in fact, now he is swallowing all of his pills, even the tablets, but some of them do have to be cut, so we are not using the G-tube, which was the main thing keeping him here as he could not take care of it at home. He is still working with speech therapy and his next session will be on Saturday. He is agreeable now to work with them, but anticipation is that he will be discharged home with home health next week. He feels like his ankles are a little swollen, but they look okay. He is not short of breath. His neck incision is reported to be healing from what I can see. The redness is improved. OBJECTIVE: Mental Status: He is alert, he is orientated x3. Vital Signs: Weight is 98.8 kg, pulse 77, blood pressure 109/60, respiratory rate 18, O2 of 98% on room air. General: He is in no acute distress. Heart: Regular rate and rhythm. Lungs: Lung sounds are clear to auscultation bilaterally without crackles or wheezes. Extremities: Warm and dry. No edema. Incision, again, I just seen the inferior aspect, there is some mild redness, probably more from his neck brace, but no warmth. LABORATORY DATA: His lab work that was repeated on the , hemoglobin was stable at 10.2, creatinine at 0.8, sodium 136. His blood sugars have all looked pretty good, still high up to 200 at bedtime, but between 100 and 150 at other meals. ASSESSMENT AND PLAN: 1. Cervical neck fracture from a fall, still in a neck brace, and having followups with Neurosurgery in June. 2. Dysphagia, improved. He had some problems prior to the fracture. He is working with speech. He will see them Saturday and we will formulate a plan for discharge. He no longer needs his G-tube. 3. Moderate malnutrition. This is improving. He is having some Boost supplements. He is getting adequate calories. He is on a diabetic diet. No bread but did allow him 1 can of Coke or 1 to 2 small cans per day. He is asking for cinnamon rolls and pancakes and things, which we recommended he not eat at this point. 4. Chronic anemia. Hemoglobin stable. 5. Essential hypertension. Blood pressure is under good control. 6. Chronic diastolic heart failure, stable. We will continue on the same doses of Lasix. He is doing well on once a day. 7. Benign prostatic hyperplasia. He is back on his Flomax. He is voiding okay. All postvoid residuals have been okay. We will discontinue them. 8. History of peptic ulcer disease and gastroesophageal reflux disease. He is on omeprazole. 9. Diabetic neuropathy, recently started on duloxetine. 10.Pain control. He is only on Tylenol. 11.Type 2 diabetes. Blood sugars looked good after insulin adjustments. He is currently getting 7 units with lunch and supper and 5 units with breakfast. PLAN: At this point, the patient will continue swing bed cares. No lab work is due. We will get his AGUILA stockings back on and anticipate he will be stable for discharge next week and need some home health for followup on his neck incisions as well as he will continue with the brace. If he passes a home safety eval, to go home. We need to make sure he can take care of his surgical incision. He is declining to go to the [facility] at this point. ANAA: 06/20/2019 10:14:38 MODL: 06/20/2019 10:37:02 /[id number] DERIC
[2019-06-20] MEDS: Cholecalciferol (Vitamin D3) 25 MCG Tab PO SCH (16:59)
[2019-06-20] MEDS: Multivit-Minerals/Ferrous Gluc 9 MG/15 ML 15 ml Cup PO SCH (17:04)
[2019-06-20] MEDS: Tamsulosin 0.4 MG Cap.ER PO SCH (20:06)
[2019-06-21] MEDS: Omeprazole 20 MG Cap.CR PO SCH ×2 (06:06→17:41)
[2019-06-21] MEDS: atorvaSTATin 10 MG Tab PO SCH (09:00)
[2019-06-21] MEDS: Losartan 50 MG Tab PO SCH (09:01)
[2019-06-21] MEDS: Metoprolol Tartrate 25 MG Tab PO SCH ×2 (09:02→19:53)
[2019-06-21] MEDS: Magnesium Oxide 400 MG Tab PO SCH (09:02)
[2019-06-21] MEDS: DULoxetine 20 MG Cap PO SCH (09:03)
[2019-06-21] MEDS: Aspirin 81 MG Tab.Chew PO SCH (09:03)
[2019-06-21] MEDS: Furosemide 40 MG Tab PO SCH (09:03)
[2019-06-21] MEDS: Insulin Glargine,Human Rec. Analog 100 Units/ML 3 ML Pen SUBCUT SCH ×2 (09:04→19:51)
[2019-06-21] MEDS: Insulin Lispro 100 Unit/ML 3 ML KwikPen SUBCUT SCH ×3 (09:05→17:40)
[2019-06-21] MEDS: Timolol Maleate 0.5% Ophth Soln 5 ML Bottle EYEBOTH SCH ×2 (09:24→19:53)
[2019-06-21] MEDS: Cholecalciferol (Vitamin D3) 25 MCG Tab PO SCH (17:41)
[2019-06-21] MEDS: Multivit-Minerals/Ferrous Gluc 9 MG/15 ML 15 ml Cup PO SCH (17:42)
[2019-06-21] MEDS: Tamsulosin 0.4 MG Cap.ER PO SCH (19:53)
[2019-06-22] MEDS: Omeprazole 20 MG Cap.CR PO SCH ×2 (06:14→17:35)
[2019-06-22] MEDS: Losartan 50 MG Tab PO SCH (09:10)
[2019-06-22] MEDS: atorvaSTATin 10 MG Tab PO SCH (09:11)
[2019-06-22] MEDS: DULoxetine 20 MG Cap PO SCH (09:12)
[2019-06-22] MEDS: Magnesium Oxide 400 MG Tab PO SCH (09:12)
[2019-06-22] MEDS: Furosemide 40 MG Tab PO SCH (09:12)
[2019-06-22] MEDS: Metoprolol Tartrate 25 MG Tab PO SCH ×2 (09:13→20:21)
[2019-06-22] MEDS: Aspirin 81 MG Tab.Chew PO SCH (09:13)
[2019-06-22] MEDS: Timolol Maleate 0.5% Ophth Soln 5 ML Bottle EYEBOTH SCH ×2 (09:15→20:22)
[2019-06-22] MEDS: Insulin Lispro 100 Unit/ML 3 ML KwikPen SUBCUT SCH ×3 (09:16→17:34)
[2019-06-22] MEDS: Insulin Glargine,Human Rec. Analog 100 Units/ML 3 ML Pen SUBCUT SCH ×2 (09:16→20:22)
[2019-06-22] MEDS: Multivit-Minerals/Ferrous Gluc 9 MG/15 ML 15 ml Cup PO SCH (17:34)
[2019-06-22] MEDS: Cholecalciferol (Vitamin D3) 25 MCG Tab PO SCH (17:35)
[2019-06-22] MEDS: Tamsulosin 0.4 MG Cap.ER PO SCH (20:21)
[2019-06-23 05:31] VITALS: PULSE 74
[2019-06-23 07:19] LABS: CHLORIDE,CL 99 mmol/L (98-107); SODIUM,NA 136 mmol/L (136-145)
[2019-06-23 07:20] LABS: ANION GAP 11.1 mmol/L (10-20)
[2019-06-23] MEDS: atorvaSTATin 10 MG Tab PO SCH (08:25)
[2019-06-23] MEDS: Magnesium Oxide 400 MG Tab PO SCH (08:25)
[2019-06-23] MEDS: DULoxetine 20 MG Cap PO SCH (08:25)
[2019-06-23] MEDS: Losartan 50 MG Tab PO SCH (08:25)
[2019-06-23] MEDS: Furosemide 40 MG Tab PO SCH (08:28)
[2019-06-23] MEDS: Omeprazole 20 MG Cap.CR PO SCH (08:28)
[2019-06-23] MEDS: Aspirin 81 MG Tab.Chew PO SCH (08:28)
[2019-06-23] MEDS: Metoprolol Tartrate 25 MG Tab PO SCH (08:28)
[2019-06-23] MEDS: Insulin Glargine,Human Rec. Analog 100 Units/ML 3 ML Pen SUBCUT SCH (08:31)
[2019-06-23] MEDS: Timolol Maleate 0.5% Ophth Soln 5 ML Bottle EYEBOTH SCH (08:31)
[2019-06-23] MEDS: Insulin Lispro 100 Unit/ML 3 ML KwikPen SUBCUT SCH ×2 (08:34→12:36)
[2019-06-23 08:36] VITALS: BP 137/61
--- NOTE | 2019-06-23 22:42 | DISCH ---
PRIMARY DISCHARGE DIAGNOSES: 1. Cervical neck fracture due to a fall, status post C5-6 anterior cervical decompression and fusion and C2 through T4 posterior spinal fusion and C5 laminectomy on 05/15/2019. 2. Dysphagia, worsened by his surgery, gastrostomy tube in place, but he passed a swallow evaluation. He is eating calories adequately. He was refusing to work with Speech Therapy here. 3. Moderate malnutrition due to poor oral intake from his acute fracture and surgery, but now doing quite well. 4. Chronic anemia. Hemoglobin was checked today and was stable at 10.2 on discharge. 5. Essential hypertension. His blood pressures were under excellent control. We were able to cut back on his Lasix to just once daily. 6. Chronic diastolic heart failure, stable, without signs of heart failure. 7. Peptic ulcer disease and gastroesophageal reflux disease. He is on omeprazole. 8. Diabetic neuropathy. He was recently started on duloxetine and doing well with that. 9. BPH. He had some bladder scans, mild residual, doing better after restarting Flomax. 10.Type 2 diabetes with neuropathy, on long-term insulin. Blood sugars were under good control. 11.Postoperative pain. This had resolved. He is not requiring any narcotics at all, even since he has been here. 12.Coronary artery disease, stable, without chest pain. 13.Recent cholecystectomy. REASON FOR ADMISSION: On the date of admission, this 83-year-old male, who is well known to our facility, had previously been transferred to [place] due to the fall and the cervical spine fracture. He was requiring ICU care and even PEG tube and tube feeds. He was transitioned to [facility] for further therapies and was doing well enough that he could be discharged back to [place] for further rehabilitation prior to returning home. HOSPITAL COURSE: The patient had an uneventful swing bed course. He completed PT and OT, and again, he refused to work further with Speech Therapy. We kept up calorie counts. They were always over 1000. He did get some nutritional, like Boost-type, supplements. He did have some trouble swallowing pills, mostly the tablets because they were bitter tasting. One day, the G-tube did get clogged, but we were able to unclog it, but then persisted with allowing him to take his pills orally, and he was able to do that. He is on a ton of supplements, per his own choice, at home, and it is advised that he not try swallowing all these but instead focus on his essential medications, like the metoprolol, which we could not find other substitute for. His insulin doses, long-acting, were kept the same at home. His meal doses were 5 units with breakfast and 7 with lunch and supper. All of his Accu-Cheks had stayed mostly under 200 with one 203 last evening. His breathing was good. His neck was examined this morning. There was no sign of infection. He had just a couple of Steri-Strips in place. He was actually hoping to remove the C-collar, but we confirmed with Neurosurgery that that was supposed to be left in place until his followup. The patient will see me in 2 to 3 weeks' time. He will otherwise not have any lab work due. Home Health will be coming in about 3 times a week to check on him. PHYSICAL EXAMINATION: VITAL SIGNS: Discharging vitals include temperature 99.7, pulse 74, blood pressure 137/61, respiratory rate 18, and O2 of 96 on room air. GENERAL: He is in no acute distress. NECK: His neck is examined again, as stated above, no drainage. His incision is well healed. HEART: Regular rate and rhythm, S1 and S2, without murmur. LUNGS: Lung sounds are clear to auscultation bilaterally without crackles or wheezes. EXTREMITIES: Warm and dry. No edema. MENTAL STATUS: He is alert. He is orientated x3. RECOMMENDATIONS: AGUILA stockings were recommended during his stay here for DVT prophylaxis. [id number] WHICH OCCURRED WITH MYSELF ON 06/23/2019: I certify that Jameson Kim is under my care and that he meets the need for home health. The reasons are a recent cervical neck fracture and difficulty with swallowing, and the primary reason for home health is strengthening and balance and gait training to ensure that he is safe to return home as well as custodial for medication instruction and compliance and for further monitoring of blood pressure and signs and symptoms of heart failure as well as speech therapy to ensure that he maintains adequate swallowing at home. My clinical findings support the need for these services because of his inability to get to an outpatient facility for therapy due to his fall risk given his recent events and his balance issues with previous fractures; he does use a walker. Furthermore, I certify my clinical findings support the patient is homebound and absences from home are infrequent and require taxing effort. Otherwise, I certify that Jameson Kim meets homebound requirements, and I will periodically review the plan of care. MKA: 06/23/2019 15:12:51 MODL: 06/23/2019 22:36:17 /[id number]
== END 2019-06-23 13:00 | disposition home health service (06) | DRG 560 ==
LOC: VM.MS 10:21
PROVIDERS: ADMIT Internal Medicine; ATTEND Internal Medicine
DX: S12.9XXD Fracture of neck, unspecified, subsequent encounter (principal); E44.0 Moderate protein-calorie malnutrition; I50.32 Chronic diastolic (congestive) heart failure; W19.XXXD Unspecified fall, subsequent encounter; R13.10 Dysphagia, unspecified; D64.9 Anemia, unspecified; I11.0 Hypertensive heart disease with heart failure; K21.9 Gastro-esophageal reflux disease without esophagitis; K27.9 Peptic ulcer, site unspecified, unspecified as acute or chronic, without hemorrhage or perforation; N40.0 Benign prostatic hyperplasia without lower urinary tract symptoms; E11.40 Type 2 diabetes mellitus with diabetic neuropathy, unspecified; R35.0 Frequency of micturition; I25.10 Atherosclerotic heart disease of native coronary artery without angina pectoris; Z93.1 Gastrostomy status; G89.18 Other acute postprocedural pain; Z79.4 Long term (current) use of insulin; Z98.1 Arthrodesis status; Z90.49 Acquired absence of other specified parts of digestive tract; Z68.29 Body mass index [BMI] 29.0-29.9, adult
CPT/HCPCS: 36415; 51798; 80048; 81001; 82962; 85025; 92526-GN; 92610-GN; 97161-GP; 97530-GP; A9270-GY; J1815-GY

== ENCOUNTER 2020-01-15 14:03 | Inpatient (IN) | payer MEDICARE, OTHER, MEDICAID ==
[2020-01-15] MEDS ORDERED: Acetaminophen 325 MG Tab PO PRN (17:04)
[2020-01-15] MEDS: INSULIN LISPRO SUBCUT SCH (18:06)
[2020-01-15] MEDS ORDERED: Acetaminophen 500 MG Tab PO PRN (19:47)
[2020-01-15] MEDS ORDERED: Metoprolol Tartrate 25 MG Tab PO SCH (20:00)
[2020-01-15] MEDS: TIMOLOL 0.25% EYEBOTH SCH (23:14)
[2020-01-15] MEDS: Tamsulosin 0.4 MG Cap.ER**PT OWN PO SCH (23:14)
[2020-01-15] MEDS: LANTUS 15 UNIT SUBCUT SCH (23:15)
--- NOTE | 2020-01-16 06:05 | HP ---
HISTORY OF PRESENT ILLNESS: This is an 84-year-old being admitted for swing bed due to need for wound cares and increased nutrition prior to a plastic surgery for his exposed bone in his cervical area from a fracture back in April. The procedure is planned for next week. Nonhealing ulcer has been present since the brace was rubbing on there back in August and he quit wearing the brace actually sooner than he was supposed to and did not follow up with Neurosurgery as advised. He had a C5-6 cervical spinal fracture due to a fall and C5-6 ACDF and C2 through T4 fusion with C5 laminectomy in 04/2019. He has a known history of coronary artery disease. He had also had a surgery last fall for his gallbladder, which went well. He had no ulcer when he was discharged home from swing bed, but then developed a T1 ulcer and was managing with home health nursing coming in at least 3 times a week and he had been following in the clinic. It was not necessarily getting worse; however, then during COV, he was not coming in and Home Health contacted me that it had gotten worse and he saw the [facility], who referred him back to Neurosurgery and the wound has definitely worsened in November and December. He has a nonhealing stage IV pressure ulcer at T1 with MRI done did not show diskitis or osteomyelitis. He has not had any fever or chills. He states he feels actually quite well and he has been eating and drinking okay, starting on 3 Ensure lately. Wound cares were being done only 5 times a week. He had canceled his recent clinic visit with me. He did not feel it was necessary. Then, I had been working on getting him in to see the swing bed and he finally agreed to come in today. The patient has not seen a dietitian. He does have diabetes, which has been under good control. He denies any low blood sugars. He otherwise is having a prealbumin, which was 16 on the . Two weeks ago, it was 13. ALLERGIES: Include beta-blockers, just cause bradycardia, but he is tolerating low dose. MEDICATIONS: He also has Humalog 1 to 5 units, he takes 3 times a day with meals. Aspirin 81 mg daily, but the patient has been holding it. His insulin is 5 daily and 7 at noon and supper. He is on Prilosec 20 mg daily, Lipitor 20 mg daily, Cymbalta 20 mg daily, losartan 100 daily, Lasix 20 daily, Toprol 25 daily, vitamin D 1000 daily, numerous supplements which we are not ordering in the hospital because they should be stopped before surgery, probiotic, Flomax 0.4 daily, Tylenol as needed for pain, vitamin B complex, Timoptic eye drops, Mag-Ox 400 daily. PAST MEDICAL HISTORY: He has a past medical history which includes coronary artery disease with 3-vessel CABG and pleural effusion after surgery back in 2013, anemia related to GI bleeding from ulcer, B12 deficiency, BPH, previous hip fracture and the right femur and left hip, type 2 diabetes with retinopathy, cholecystitis, chronic diastolic heart failure. His EF was checked in 04/2019 and was 55%. He has had diffuse idiopathic skeletal hyperostosis. Elevated LFTs at the time of Klebsiella bacteremia in the past. No liver problems. Otherwise, GERD, hyperlipidemia, obesity, osteoporosis with previous fracture, peripheral vascular disease. PAST SURGICAL HISTORY: He has had the CABG. He has had the cervical fusion. He has had the hip surgery for fracture, G-tube placement last fall, lap cholecystectomy, dental extractions, tonsillectomy, cataracts, inguinal hernia surgery. SOCIAL HISTORY: The patient is retired and . He has 3 children. He lives in an apartment. He chews tobacco. He does not drink alcohol. He is a former smoker though. FAMILY HISTORY: He has a brother who is living. He has polio. Both parents are . His mother had diabetes. REVIEW OF SYSTEMS: General: He is not aware of any weight changes. No fever, no chills. Actually, it should be noted that he did lose about 20 pounds last fall when he had his neck surgery and was on tube feeds, but he has gained all that weight back. HEENT: No trouble swallowing. Cardiac: No chest pain. No palpitations. GI: No nausea, vomiting, diarrhea, constipation. Respiratory: No cough, no shortness of breath. Musculoskeletal: He does not even have any pain in the neck area. Otherwise, all systems reviewed and found to be negative unless otherwise stated. PHYSICAL EXAMINATION: Vital Signs: Today, he does have a weight 113.3 kg, temperature 96.5, pulse 58, blood pressure 131/64, respiratory rate 20, and O2 of 96% on room air. General: He is in no acute distress. Heart: Regular rate and rhythm with no murmurs noted. Lungs: Lung sounds clear to auscultation bilaterally without crackles or wheezes. Extremities: Warm and dry. Just trace edema to both ankles. Mental Status: Alert and oriented x3. Neck: Examined. He does have that open area, probably 2 to 3 cm. No drainage but exposed bone. There are multiple pictures of it documented in his Epic chart. Psych: He is not depressed or anxious. LABORATORY DATA: Recent lab test when he was in the hospital did show a normal lactic acid. Blood cultures were normal. His sed rate was just 26. His CRP was 20. ASSESSMENT: 1. We have a nonhealing T1 pressure ulcer of the neck requiring plastic surgery. Plan to admit for dedicated wound cares and dressing changes daily. Increased Ensure nutrition supplements. Dietitian ordered and plan to likely admit and have surgery in [place] on 01/20/2020. 2. Type 2 diabetes, well controlled, with some mild neuropathy due to numbness, on long-term insulin. The patient will get q.i.d. Accu-Cheks. We will continue his home insulin. We will repeat a BMP on Saturday in preparation for surgery. 3. Mild malnutrition probably due to chronic disease. The patient will be on Ensure t.i.d. I am going to hold off on any protein powder as I think that the Ensure and a good diet will be adequate. 4. Coronary artery disease, seems stable. We will continue home medications. 5. Chronic diastolic heart failure, stable. Continue home medications. 6. Osteoporosis with previous fracture. He is not on any treatments currently other than calcium and vitamin D supplements. 7. Essential hypertension. Continue home medications. 8. Obesity. PLAN: At this point, the patient is admitted for swing bed. We will hold off on any DVT prophylaxis. He will be up and moving around and out of the hospital soon. I will hold his aspirin and supplements tentatively as I feel he will likely be having surgery next week. Also reached out to his neurosurgeon on this. MKA: 01/15/2020 21:25:06 MODL: 01/16/2020 01:19:25 /[id number]
[2020-01-16] MEDS: OMEPRAZOLE 20 MG PO SCH ×2 (07:04→17:05)
[2020-01-16] MEDS: Furosemide 20 MG Tab**PT OWN PO SCH (07:50)
[2020-01-16] MEDS: DULOXETINE 20 MG PO SCH (07:50)
[2020-01-16] MEDS: METOPROLOL SUCCINATE 25 MG PO SCH (07:51)
[2020-01-16] MEDS: MAGNESIUM 400 MG PO SCH (07:51)
[2020-01-16] MEDS: LOSARTAN 100 MG PO SCH (07:51)
[2020-01-16] MEDS: ATORVASTATIN 20 MG PO SCH (07:52)
[2020-01-16] MEDS: TIMOLOL 0.25% EYEBOTH SCH ×2 (07:53→22:10)
[2020-01-16] MEDS: INSULIN LISPRO SUBCUT SCH ×3 (07:53→17:05)
[2020-01-16] MEDS: LANTUS 10 UNIT SUBCUT SCH (07:53)
[2020-01-16] MEDS ORDERED: Aspirin 81 MG Tab.EC PO SCH (08:00)
[2020-01-16] MEDS ORDERED: Furosemide 40 MG Tab PO SCH (08:00)
[2020-01-16] MEDS ORDERED: MULTIVITAMIN PO SCH (17:00)
[2020-01-16] MEDS: CHOLECALCIFEROL 25 MCG PO SCH (17:06)
[2020-01-16] MEDS: Tamsulosin 0.4 MG Cap.ER**PT OWN PO SCH (22:10)
[2020-01-16] MEDS: LANTUS 15 UNIT SUBCUT SCH (22:11)
[2020-01-17] MEDS: OMEPRAZOLE 20 MG PO SCH ×2 (06:23→18:06)
[2020-01-17] MEDS: MAGNESIUM 400 MG PO SCH (08:04)
[2020-01-17] MEDS: ATORVASTATIN 20 MG PO SCH (08:04)
[2020-01-17] MEDS: Furosemide 20 MG Tab**PT OWN PO SCH (08:05)
[2020-01-17] MEDS: DULOXETINE 20 MG PO SCH (08:05)
[2020-01-17] MEDS: METOPROLOL SUCCINATE 25 MG PO SCH (08:05)
[2020-01-17] MEDS: LOSARTAN 100 MG PO SCH (08:05)
[2020-01-17] MEDS: TIMOLOL 0.25% EYEBOTH SCH ×2 (08:05→20:05)
[2020-01-17] MEDS: INSULIN LISPRO SUBCUT SCH ×3 (08:06→18:05)
[2020-01-17] MEDS: LANTUS 10 UNIT SUBCUT SCH (08:06)
[2020-01-17] MEDS: CHOLECALCIFEROL 25 MCG PO SCH (18:06)
[2020-01-17] MEDS: Tamsulosin 0.4 MG Cap.ER**PT OWN PO SCH (20:05)
[2020-01-17] MEDS: LANTUS 15 UNIT SUBCUT SCH (20:06)
[2020-01-18] MEDS: OMEPRAZOLE 20 MG PO SCH (06:15)
[2020-01-18] MEDS: LANTUS 10 UNIT SUBCUT SCH (09:21)
[2020-01-18] MEDS: DULOXETINE 20 MG PO SCH (09:22)
[2020-01-18] MEDS: ATORVASTATIN 20 MG PO SCH (09:22)
[2020-01-18] MEDS: LOSARTAN 100 MG PO SCH (09:22)
[2020-01-18] MEDS: INSULIN LISPRO SUBCUT SCH ×3 (09:22→18:24)
[2020-01-18] MEDS: MAGNESIUM 400 MG PO SCH (09:23)
[2020-01-18] MEDS: TIMOLOL 0.25% EYEBOTH SCH ×2 (09:23→20:36)
[2020-01-18] MEDS: Furosemide 20 MG Tab**PT OWN PO SCH (09:23)
[2020-01-18] MEDS: METOPROLOL SUCCINATE 25 MG PO SCH (09:24)
[2020-01-18] MEDS: Omeprazole 20 MG Cap.CR (OWN SUPPLY) PO SCH (16:59)
[2020-01-18] MEDS ORDERED: CHOLECALCIFEROL 25 MCG PO SCH (17:00)
[2020-01-18] MEDS ORDERED: Tamsulosin 0.4 MG Cap.ER**PT OWN PO SCH (20:00)
[2020-01-18] MEDS: LANTUS 15 UNIT SUBCUT SCH (20:38)
[2020-01-19] MEDS: Omeprazole 20 MG Cap.CR (OWN SUPPLY) PO SCH (06:29)
[2020-01-19] MEDS ORDERED: Metoprolol Succinate 25 MG Tab.ER (OWN SUPPLY) PO SCH (08:00)
[2020-01-19] MEDS ORDERED: Furosemide 20 MG Tab (OWN SUPPLY) PO SCH (08:00)
[2020-01-19] MEDS: MAGNESIUM 400 MG PO SCH (08:28)
[2020-01-19] MEDS: LOSARTAN 100 MG PO SCH (08:28)
[2020-01-19] MEDS: ATORVASTATIN 20 MG PO SCH (08:28)
[2020-01-19] MEDS: DULOXETINE 20 MG PO SCH (08:28)
[2020-01-19] MEDS: TIMOLOL 0.25% EYEBOTH SCH (08:30)
[2020-01-19] MEDS: INSULIN LISPRO SUBCUT SCH ×2 (08:30→12:20)
[2020-01-19] MEDS: LANTUS 10 UNIT SUBCUT SCH (08:31)
[2020-01-19 08:32] VITALS: BP 121/61; PULSE 66
--- NOTE | 2020-01-20 01:16 | DISCH ---
PRIMARY DISCHARGE DIAGNOSES: 1. A nonhealing wound to his cervical spine with exposed bone, but no current infection. 2. T1 pressure ulcer as above, requiring plastic surgery, planned for 01/20/2020. 3. Type 2 diabetes, well controlled on long-term insulin with neuropathy. 4. Mild malnutrition due to chronic disease, improved prealbumin up to 18. 5. Coronary artery disease, stable without chest pain. 6. Chronic diastolic heart failure, stable without exacerbation. 7. Osteoporosis with previous neck fracture. 8. Essential hypertension. 9. Obesity. REASON FOR ADMISSION: On the date of admission, this 84-year-old male was brought into swing bed for daily wound cares as well as increased nutrition. He was on Ensure Plus t.i.d. and also getting protein supplements at meals another 8 g t.i.d. He was, however, also getting to the pop machine and drinking up to 3 regular Cokes per day, which he does do at home despite his diabetes. Despite him getting extra sugar, his blood sugars were under good control while he was here on his home insulin regimen with only 1 reading yesterday afternoon over 200 and mostly around 100 to 112 in the mornings. The patient had no trouble breathing. In fact, he had no fever, chills, and was thinking about going home and returning on Saturday over the weekend, but I recommended he stay. He also was being arranged for a direct admit in [place]. However, they still had not called for a bed and the patient states his ride left and he was talking about going home AMA and taking the senior bus down tomorrow. I basically told the nurses that I did not have time to deal with him talking about this, and if he left, he might not be able to get his surgery. Therefore, the nurses worked with him called his son, and apparently his son arranged for him to take even a taxi to [facility]. At the time of this dictation, he is still awaiting a bed offer. PHYSICAL EXAMINATION: Vital Signs: Objectively, on discharge, his temperature 96.6, pulse 67, blood pressure 121/61, respiratory rate 20, and O2 of 94% on room air. General: He is in no acute distress. Heart: Regular rate and rhythm. S1, S2 without murmur. Lungs: Lung sounds are clear to auscultation bilaterally without crackles or wheezes. Abdomen: Nondistended, nontender. He does have a wound dressing in place over his upper thoracic lower cervical vertebrae. Mental Status: He is alert and oriented x3. DISCHARGE PLANS AND INSTRUCTIONS: He is going down to [place] for further neck surgery planned for tomorrow by Plastic Surgery due to his nonhealing wound since at least 08/2019. He will make sure to get his Toprol in the morning, but hold Lasix and losartan. No mealtime insulin will be done in the morning and I did not address his Lantus because I figured he would be down in [place] and the specialist there would be admitting him and deciding, but likely he can take either his regular or lower dose of evening Lantus tonight. He likely will need to resume swing bed for daily wound cares versus getting our forensic social worker involved for private dressing changes in addition to home health. Addendum patient did leave and go home as no ride could be arranged and his surgery was cancelled. He had a ride but apparently they left due waiting for a bed in [place]. MKA: 01/19/2020 17:13:32 MODL: 01/20/2020 01:05:15 /[id number]
== END 2020-01-19 16:38 | disposition short-term general hospital (02) | DRG 949 ==
LOC: VM.MS 14:50 → UNDOADMIN 15:05
PROVIDERS: ADMIT Internal Medicine; ATTEND Internal Medicine
DX: S11.90XD Unspecified open wound of unspecified part of neck, subsequent encounter (principal); L89.104 Pressure ulcer of unspecified part of back, stage 4; E44.1 Mild protein-calorie malnutrition; I50.32 Chronic diastolic (congestive) heart failure; I25.10 Atherosclerotic heart disease of native coronary artery without angina pectoris; E53.8 Deficiency of other specified B group vitamins; N40.0 Benign prostatic hyperplasia without lower urinary tract symptoms; E11.319 Type 2 diabetes mellitus with unspecified diabetic retinopathy without macular edema; K21.9 Gastro-esophageal reflux disease without esophagitis; E78.5 Hyperlipidemia, unspecified; E66.9 Obesity, unspecified; M81.0 Age-related osteoporosis without current pathological fracture; E11.51 Type 2 diabetes mellitus with diabetic peripheral angiopathy without gangrene; E11.42 Type 2 diabetes mellitus with diabetic polyneuropathy; I11.0 Hypertensive heart disease with heart failure; Z90.49 Acquired absence of other specified parts of digestive tract; Z90.89 Acquired absence of other organs; Z98.41 Cataract extraction status, right eye; Z98.1 Arthrodesis status; Z79.82 Long term (current) use of aspirin; Z79.4 Long term (current) use of insulin; Z79.899 Other long term (current) drug therapy; Z88.8 Allergy status to other drugs, medicaments and biological substances; Z95.1 Presence of aortocoronary bypass graft; Z98.42 Cataract extraction status, left eye; Z68.33 Body mass index [BMI] 33.0-33.9, adult
CPT/HCPCS: 82962; A9270-GY

== ENCOUNTER 2021-12-01 03:31 | Inpatient (IN) | payer MEDICARE, OTHER, MEDICAID ==
[2021-12-01] MEDS ORDERED: cefTRIAXone 1 GM Vial IVPUSH ONE (03:46)
[2021-12-01] MEDS ORDERED: Lactated Ringers 1,000 ML IV SCH (04:00)
[2021-12-01 04:41] LABS: CHLORIDE,CL 94 mmol/L (98-107)
[2021-12-01 04:44] LABS: ANION GAP 13.6 mmol/L (5-15); SODIUM,NA 130 mmol/L (136-145)
[2021-12-01] MEDS ORDERED: Aspirin 81 MG Tab.Chew PO ONE (04:48)
[2021-12-01 05:10] LABS: PTT,PARTIAL THROMBOPLSTIN TIME 26.3 SEC (20.5-30.9)
[2021-12-01] MEDS ORDERED: Furosemide 40 MG/4 ML VIAL IV ONE (05:32)
[2021-12-01] MEDS ORDERED: Magnesium Oxide 400 MG Tab PO SCH (09:00)
[2021-12-01] MEDS: Nystatin Crm 30 GM Tube TOP SCH ×2 (10:47→21:43)
[2021-12-01] MEDS: Metoprolol Succinate 25 MG Tab.ER PO SCH (10:47)
[2021-12-01] MEDS ORDERED: Acetaminophen 500 MG Tab PO PRN (12:46)
[2021-12-01] MEDS ORDERED: Sennosides 8.6 MG Tab PO PRN (12:46)
[2021-12-01] MEDS ORDERED: Furosemide 20 MG/2 ML VIAL IV ONE (13:59)
[2021-12-01] MEDS ORDERED: Potassium Chloride 10 MEQ Tab.ER PO ONE (14:00)
[2021-12-01] MEDS: Insulin Lispro 100 Units/ML 3 ML Vial SUBCUT SCH (17:44)
[2021-12-01] MEDS: Magnesium Oxide 400 MG Tab PO SCH (21:40)
[2021-12-01] MEDS: Timolol Maleate 0.5% Ophth Soln 5 ML Bottle EYEBOTH SCH (21:41)
[2021-12-01] MEDS: Insulin Glarg,Human.Rec.Analog 100 Unit/ML SUBCUT SCH (21:43)
[2021-12-02] MEDS ORDERED: LORazepam 0.5 MG Tab PO STA (01:55)
[2021-12-02] MEDS: Omeprazole 20 MG Cap.CR PO SCH (06:34)
[2021-12-02] MEDS ORDERED: LORazepam 0.5 MG Tab PO PRN (07:56)
[2021-12-02] MEDS ORDERED: Melatonin 3 MG Tab PO PRN (07:56)
[2021-12-02] MEDS ORDERED: Furosemide 40 MG/4 ML VIAL IV ONE (07:57)
[2021-12-02 08:03] LABS: CHLORIDE,CL 92 mmol/L (98-107); SODIUM,NA 130 mmol/L (136-145)
[2021-12-02] MEDS: Lactobacillus Rhamnosus GG (Probiotic) Cap PO SCH (08:19)
[2021-12-02] MEDS: Tamsulosin 0.4 MG Cap.ER PO SCH (08:19)
[2021-12-02] MEDS: DULoxetine 20 MG Cap PO SCH (08:19)
[2021-12-02] MEDS: Beta-Carotene (Vitamin A) w/Vitamin C & E plus Minerals Tab PO SCH (08:20)
[2021-12-02] MEDS: Clopidogrel 75 MG Tab PO SCH (08:20)
[2021-12-02] MEDS: Magnesium Oxide 400 MG Tab PO SCH ×2 (08:21→20:37)
[2021-12-02] MEDS: Cholecalciferol (Vitamin D3) 25 MCG Tab PO SCH (08:21)
[2021-12-02] MEDS: atorvaSTATin 10 MG Tab PO SCH (08:21)
[2021-12-02] MEDS: Insulin Glarg,Human.Rec.Analog 100 Unit/ML SUBCUT SCH ×2 (08:27→21:14)
[2021-12-02] MEDS: Losartan 50 MG Tab PO SCH (08:29)
[2021-12-02] MEDS: Nystatin Crm 30 GM Tube TOP SCH ×2 (08:36→20:38)
[2021-12-02] MEDS: POTASSIUM GLUCONATE 595 MG PO SCH (08:36)
[2021-12-02] MEDS: Enoxaparin 40 MG/0.4 ML Syringe SUBCUT SCH (08:39)
[2021-12-02] MEDS: Nicotine 14 MG/24 Hr Patch TRDERM SCH (08:40)
[2021-12-02] MEDS: Timolol Maleate 0.5% Ophth Soln 5 ML Bottle EYEBOTH SCH ×2 (08:41→20:38)
[2021-12-02] MEDS: Metoprolol Succinate 25 MG Tab.ER PO SCH (08:42)
[2021-12-02] MEDS: Famotidine 20 MG Tab PO SCH (08:46)
[2021-12-02] MEDS ORDERED: Aspirin 81 MG Tab.EC PO SCH (09:00)
[2021-12-02] MEDS ORDERED: Metoprolol Succinate 25 MG Tab.ER PO SCH (09:00)
[2021-12-02] MEDS: Insulin Lispro 100 Units/ML 3 ML Vial SUBCUT SCH ×2 (11:52→17:10)
[2021-12-02] MEDS: Sodium Chloride 0.9% 10 ML Syringe FLUSH PRN (20:40)
[2021-12-03] MEDS: Omeprazole 20 MG Cap.CR PO SCH (06:21)
[2021-12-03 08:00] LABS: CHLORIDE,CL 92 mmol/L (98-107)
[2021-12-03 08:02] LABS: ANION GAP 10.4 mmol/L (5-15); SODIUM,NA 129 mmol/L (136-145)
[2021-12-03] MEDS: Enoxaparin 40 MG/0.4 ML Syringe SUBCUT SCH (08:55)
[2021-12-03] MEDS: Metoprolol Succinate 25 MG Tab.ER PO SCH (08:56)
[2021-12-03] MEDS: Nicotine 14 MG/24 Hr Patch TRDERM SCH (08:58)
[2021-12-03] MEDS ORDERED: Furosemide 20 MG/2 ML VIAL IV ONE ×2 (08:58→12:30)
[2021-12-03] MEDS: Tamsulosin 0.4 MG Cap.ER PO SCH (09:02)
[2021-12-03] MEDS: Losartan 50 MG Tab PO SCH (09:02)
[2021-12-03] MEDS: Beta-Carotene (Vitamin A) w/Vitamin C & E plus Minerals Tab PO SCH (09:02)
[2021-12-03] MEDS: Famotidine 20 MG Tab PO SCH (09:03)
[2021-12-03] MEDS: atorvaSTATin 10 MG Tab PO SCH (09:03)
[2021-12-03] MEDS: DULoxetine 20 MG Cap PO SCH (09:03)
[2021-12-03] MEDS: Magnesium Oxide 400 MG Tab PO SCH ×2 (09:03→20:34)
[2021-12-03] MEDS: Lactobacillus Rhamnosus GG (Probiotic) Cap PO SCH (09:03)
[2021-12-03] MEDS: Nystatin Crm 30 GM Tube TOP SCH ×2 (09:04→20:35)
[2021-12-03] MEDS: Finasteride 5 MG Tab PO SCH (09:05)
[2021-12-03] MEDS: Insulin Glarg,Human.Rec.Analog 100 Unit/ML SUBCUT SCH ×2 (09:05→21:03)
[2021-12-03] MEDS: POTASSIUM GLUCONATE 595 MG PO SCH (09:07)
[2021-12-03] MEDS: Timolol Maleate 0.5% Ophth Soln 5 ML Bottle EYEBOTH SCH ×2 (09:08→20:36)
[2021-12-03] MEDS: Cholecalciferol (Vitamin D3) 25 MCG Tab PO SCH (09:10)
[2021-12-03] MEDS: Clopidogrel 75 MG Tab PO SCH (09:15)
[2021-12-03] MEDS: Insulin Lispro 100 Units/ML 3 ML Vial SUBCUT SCH ×2 (12:08→17:48)
[2021-12-03] MEDS: Sodium Chloride 0.9% 10 ML Syringe FLUSH PRN (20:40)
[2021-12-04] MEDS: Omeprazole 20 MG Cap.CR PO SCH (06:35)
[2021-12-04 07:33] LABS: CHLORIDE,CL 90 mmol/L (98-107)
[2021-12-04 07:34] LABS: ANION GAP 10.5 mmol/L (5-15); SODIUM,NA 125 mmol/L (136-145)
[2021-12-04] MEDS: Magnesium Oxide 400 MG Tab PO SCH ×2 (08:24→21:15)
[2021-12-04] MEDS: Cholecalciferol (Vitamin D3) 25 MCG Tab PO SCH (08:24)
[2021-12-04] MEDS: Nicotine 14 MG/24 Hr Patch TRDERM SCH (08:24)
[2021-12-04] MEDS: atorvaSTATin 10 MG Tab PO SCH (08:24)
[2021-12-04] MEDS: Lactobacillus Rhamnosus GG (Probiotic) Cap PO SCH (08:24)
[2021-12-04] MEDS: Finasteride 5 MG Tab PO SCH (08:25)
[2021-12-04] MEDS: DULoxetine 20 MG Cap PO SCH (08:25)
[2021-12-04] MEDS: Famotidine 20 MG Tab PO SCH (08:25)
[2021-12-04] MEDS: Clopidogrel 75 MG Tab PO SCH (08:25)
[2021-12-04] MEDS: Beta-Carotene (Vitamin A) w/Vitamin C & E plus Minerals Tab PO SCH (08:25)
[2021-12-04] MEDS: Tamsulosin 0.4 MG Cap.ER PO SCH (08:25)
[2021-12-04] MEDS: Metoprolol Succinate 25 MG Tab.ER PO SCH (08:26)
[2021-12-04] MEDS: Losartan 50 MG Tab PO SCH (08:26)
[2021-12-04] MEDS: Timolol Maleate 0.5% Ophth Soln 5 ML Bottle EYEBOTH SCH ×2 (08:28→21:15)
[2021-12-04] MEDS: Nystatin Crm 30 GM Tube TOP SCH ×2 (08:28→21:00)
[2021-12-04] MEDS: POTASSIUM GLUCONATE 595 MG PO SCH (08:28)
[2021-12-04] MEDS: Insulin Glarg,Human.Rec.Analog 100 Unit/ML SUBCUT SCH ×2 (08:30→22:00)
[2021-12-04] MEDS: Furosemide 40 MG Tab PO SCH ×2 (08:38→17:46)
[2021-12-04] MEDS: Insulin Lispro 100 Units/ML 3 ML Vial SUBCUT SCH ×2 (12:17→17:09)
[2021-12-04] MEDS ORDERED: Potassium Chloride 10 MEQ Tab.ER PO ONE (14:30)
[2021-12-05] MEDS: Omeprazole 20 MG Cap.CR PO SCH (06:28)
[2021-12-05 08:31] LABS: CHLORIDE,CL 91 mmol/L (98-107)
[2021-12-05 08:33] LABS: ANION GAP 13.6 mmol/L (5-15); SODIUM,NA 126 mmol/L (136-145)
[2021-12-05] MEDS: Famotidine 20 MG Tab PO SCH (09:26)
[2021-12-05] MEDS: Nicotine 14 MG/24 Hr Patch TRDERM SCH (09:26)
[2021-12-05] MEDS: Lactobacillus Rhamnosus GG (Probiotic) Cap PO SCH (09:26)
[2021-12-05] MEDS: Metoprolol Succinate 25 MG Tab.ER PO SCH (09:26)
[2021-12-05] MEDS: Beta-Carotene (Vitamin A) w/Vitamin C & E plus Minerals Tab PO SCH (09:27)
[2021-12-05] MEDS: Losartan 50 MG Tab PO SCH (09:27)
[2021-12-05] MEDS: atorvaSTATin 10 MG Tab PO SCH (09:27)
[2021-12-05] MEDS: Tamsulosin 0.4 MG Cap.ER PO SCH (09:28)
[2021-12-05] MEDS: Cholecalciferol (Vitamin D3) 25 MCG Tab PO SCH (09:28)
[2021-12-05] MEDS: Finasteride 5 MG Tab PO SCH (09:28)
[2021-12-05] MEDS: Clopidogrel 75 MG Tab PO SCH (09:28)
[2021-12-05] MEDS: DULoxetine 20 MG Cap PO SCH (09:28)
[2021-12-05] MEDS: Insulin Glarg,Human.Rec.Analog 100 Unit/ML SUBCUT SCH (09:29)
[2021-12-05] MEDS: POTASSIUM GLUCONATE 595 MG PO SCH (09:31)
[2021-12-05] MEDS: Nystatin Crm 30 GM Tube TOP SCH (09:31)
[2021-12-05] MEDS: Timolol Maleate 0.5% Ophth Soln 5 ML Bottle EYEBOTH SCH (09:37)
[2021-12-05] MEDS: Furosemide 40 MG Tab PO SCH (09:39)
[2021-12-05] MEDS: Magnesium Oxide 400 MG Tab PO SCH (09:43)
[2021-12-05] MEDS: Insulin Lispro 100 Units/ML 3 ML Vial SUBCUT SCH (12:00)
[2021-12-05 14:25] VITALS: BP 121/60; PULSE 64
== END 2021-12-05 16:45 | disposition home health service (06) | DRG 280 ==
LOC: VM.ED 03:31 → VM.MS 07:40
PROVIDERS: ADMIT Internal Medicine; ATTEND Internal Medicine
DX: I11.0 Hypertensive heart disease with heart failure (principal); I21.4 Non-ST elevation (NSTEMI) myocardial infarction; I50.23 Acute on chronic systolic (congestive) heart failure; I50.33 Acute on chronic diastolic (congestive) heart failure; H40.9 Unspecified glaucoma; E87.1 Hypo-osmolality and hyponatremia; E78.00 Pure hypercholesterolemia, unspecified; E83.42 Hypomagnesemia; E11.40 Type 2 diabetes mellitus with diabetic neuropathy, unspecified; E11.51 Type 2 diabetes mellitus with diabetic peripheral angiopathy without gangrene; D64.9 Anemia, unspecified; N40.0 Benign prostatic hyperplasia without lower urinary tract symptoms; E53.8 Deficiency of other specified B group vitamins; M19.90 Unspecified osteoarthritis, unspecified site; M81.0 Age-related osteoporosis without current pathological fracture; I35.0 Nonrheumatic aortic (valve) stenosis; Z88.8 Allergy status to other drugs, medicaments and biological substances; E11.9 Type 2 diabetes mellitus without complications; E78.5 Hyperlipidemia, unspecified; Z20.822 Contact with and (suspected) exposure to COVID-19; K21.9 Gastro-esophageal reflux disease without esophagitis; E66.9 Obesity, unspecified; I25.10 Atherosclerotic heart disease of native coronary artery without angina pectoris; B37.2 Candidiasis of skin and nail; J45.909 Unspecified asthma, uncomplicated; Z98.49 Cataract extraction status, unspecified eye; Z90.49 Acquired absence of other specified parts of digestive tract; Z95.1 Presence of aortocoronary bypass graft; Z79.82 Long term (current) use of aspirin; Z79.4 Long term (current) use of insulin; Z79.899 Other long term (current) drug therapy; Z68.34 Body mass index [BMI] 34.0-34.9, adult
CPT/HCPCS: 36415; 51702; 51798; 71045; 73560-RT; 80048; 80053; 81001; 82947; 83605; 83735; 83880; 83930; 83935; 84484; 85025; 85610; 85730; 86140; 87040; 93005; 96374; 96375; 97162-GP; 99284; 99285-25; A9270-GY; J0696; J1650; J1815-GY; J1940; J3490; J7120; U0002

== ENCOUNTER 2021-12-15 07:44 | Inpatient (IN) | payer MEDICARE, OTHER, MEDICAID ==
[2021-12-15 08:47] LABS: CHLORIDE,CL 81 mmol/L (98-107)
[2021-12-15 08:49] LABS: ANION GAP 9.9 mmol/L (5-15)
[2021-12-15 08:50] LABS: SODIUM,NA 115 mmol/L (136-145)
[2021-12-15] MEDS ORDERED: cefTRIAXone 1 GM Vial IVPUSH ONE (09:14)
[2021-12-15] MEDS ORDERED: Magnesium Sulfate/Water 4 GM in Premix Bag 1 BAG IV ONE (11:45)
[2021-12-15] MEDS ORDERED: Sennosides 8.6 MG Tab PO PRN (14:34)
[2021-12-15] MEDS ORDERED: Furosemide 40 MG/4 ML VIAL IV ONE (14:45)
[2021-12-15] MEDS: Finasteride 5 MG Tab PO SCH (15:58)
[2021-12-15] MEDS: Torsemide 20 MG Tab PO SCH (16:04)
[2021-12-15] MEDS: Insulin Lispro 100 Units/ML 3 ML Vial SUBCUT SCH (17:18)
[2021-12-15] MEDS: Timolol Maleate 0.5% Ophth Soln 5 ML Bottle EYEBOTH SCH (20:44)
[2021-12-15] MEDS: Tamsulosin 0.4 MG Cap.ER PO SCH (20:45)
[2021-12-15] MEDS: Magnesium Oxide 400 MG Tab PO SCH (20:46)
[2021-12-15] MEDS: Latanoprost 0.005% Ophth Soln 2.5 ML Bottle EYERT SCH (20:46)
[2021-12-15] MEDS: Insulin Glarg,Human.Rec.Analog 100 Unit/ML SUBCUT SCH (21:01)
[2021-12-15] MEDS: Melatonin 3 MG Tab PO PRN (23:55)
[2021-12-16] MEDS: Timolol Maleate 0.5% Ophth Soln 5 ML Bottle EYEBOTH SCH ×2 (02:01→08:12)
[2021-12-16] MEDS: Omeprazole 20 MG Cap.CR PO SCH (06:18)
[2021-12-16 07:56] LABS: CHLORIDE,CL 82 mmol/L (98-107)
[2021-12-16 07:59] LABS: ANION GAP 10.3 mmol/L (5-15)
[2021-12-16 08:00] LABS: SODIUM,NA 118 mmol/L (136-145)
[2021-12-16] MEDS: Enoxaparin 40 MG/0.4 ML Syringe SUBCUT SCH (08:06)
[2021-12-16] MEDS: Finasteride 5 MG Tab PO SCH (08:07)
[2021-12-16] MEDS: Tamsulosin 0.4 MG Cap.ER PO SCH ×2 (08:07→20:01)
[2021-12-16] MEDS: Lactobacillus Rhamnosus GG (Probiotic) Cap PO SCH (08:09)
[2021-12-16] MEDS: Clopidogrel 75 MG Tab PO SCH (08:09)
[2021-12-16] MEDS: Torsemide 20 MG Tab PO SCH (08:09)
[2021-12-16] MEDS: Insulin Glarg,Human.Rec.Analog 100 Unit/ML SUBCUT SCH ×2 (08:09→21:30)
[2021-12-16] MEDS: Aspirin 81 MG Tab.EC PO SCH (08:09)
[2021-12-16] MEDS: Magnesium Oxide 400 MG Tab PO SCH ×2 (08:09→20:01)
[2021-12-16] MEDS: atorvaSTATin 10 MG Tab PO SCH (08:09)
[2021-12-16] MEDS: POTASSIUM PO SCH (08:12)
[2021-12-16] MEDS ORDERED: Potassium Chloride 20 MEQ Tab.ER PO ONE (08:43)
[2021-12-16] MEDS ORDERED: Tamsulosin 0.4 MG Cap.ER PO SCH (09:00)
[2021-12-16] MEDS: Metoprolol Succinate 25 MG Tab.ER PO SCH (09:10)
[2021-12-16] MEDS: Losartan 50 MG Tab PO SCH (09:10)
[2021-12-16] MEDS: Insulin Lispro 100 Units/ML 3 ML Vial SUBCUT SCH ×2 (11:12→17:11)
[2021-12-16] MEDS: Latanoprost 0.005% Ophth Soln 2.5 ML Bottle EYERT SCH (20:02)
[2021-12-16] MEDS: Sodium Chloride 0.9% 10 ML Syringe FLUSH PRN (21:50)
[2021-12-17] MEDS: Melatonin 3 MG Tab PO PRN ×2 (00:27→22:51)
[2021-12-17] MEDS: Omeprazole 20 MG Cap.CR PO SCH (06:08)
[2021-12-17] MEDS: Lactobacillus Rhamnosus GG (Probiotic) Cap PO SCH (08:06)
[2021-12-17] MEDS: atorvaSTATin 10 MG Tab PO SCH (08:06)
[2021-12-17] MEDS: POTASSIUM PO SCH (08:06)
[2021-12-17] MEDS: Finasteride 5 MG Tab PO SCH (08:06)
[2021-12-17] MEDS: Tamsulosin 0.4 MG Cap.ER PO SCH ×2 (08:06→20:59)
[2021-12-17] MEDS: Timolol Maleate 0.5% Ophth Soln 5 ML Bottle EYEBOTH SCH ×2 (08:06→21:03)
[2021-12-17] MEDS: Aspirin 81 MG Tab.EC PO SCH (08:07)
[2021-12-17] MEDS: Torsemide 20 MG Tab PO SCH (08:07)
[2021-12-17] MEDS: Insulin Glarg,Human.Rec.Analog 100 Unit/ML SUBCUT SCH ×2 (08:07→21:03)
[2021-12-17] MEDS: Enoxaparin 40 MG/0.4 ML Syringe SUBCUT SCH (08:07)
[2021-12-17] MEDS: Magnesium Oxide 400 MG Tab PO SCH ×2 (08:07→20:59)
[2021-12-17] MEDS: Clopidogrel 75 MG Tab PO SCH (08:07)
[2021-12-17 08:43] LABS: CHLORIDE,CL 84 mmol/L (98-107)
[2021-12-17 08:47] LABS: ANION GAP 11.3 mmol/L (5-15); SODIUM,NA 119 mmol/L (136-145)
[2021-12-17] MEDS: Metoprolol Succinate 25 MG Tab.ER PO SCH (09:11)
[2021-12-17] MEDS: Losartan 50 MG Tab PO SCH (09:11)
[2021-12-17] MEDS: Insulin Lispro 100 Units/ML 3 ML Vial SUBCUT SCH ×2 (11:09→17:12)
[2021-12-17] MEDS: Sodium Chloride 0.9% 10 ML Syringe FLUSH PRN (20:56)
[2021-12-17] MEDS: Latanoprost 0.005% Ophth Soln 2.5 ML Bottle EYERT SCH (20:58)
[2021-12-17] MEDS: Acetaminophen 500 MG Tab PO PRN (22:51)
[2021-12-18] MEDS: Omeprazole 20 MG Cap.CR PO SCH (06:01)
[2021-12-18] MEDS: POTASSIUM PO SCH (08:02)
[2021-12-18 08:03] LABS: CHLORIDE,CL 87 mmol/L (98-107)
[2021-12-18] MEDS: atorvaSTATin 10 MG Tab PO SCH (08:03)
[2021-12-18] MEDS: Finasteride 5 MG Tab PO SCH (08:03)
[2021-12-18] MEDS: Torsemide 20 MG Tab PO SCH (08:03)
[2021-12-18] MEDS: Tamsulosin 0.4 MG Cap.ER PO SCH ×2 (08:03→21:02)
[2021-12-18] MEDS: Clopidogrel 75 MG Tab PO SCH (08:03)
[2021-12-18] MEDS: Lactobacillus Rhamnosus GG (Probiotic) Cap PO SCH (08:03)
[2021-12-18] MEDS: Timolol Maleate 0.5% Ophth Soln 5 ML Bottle EYEBOTH SCH ×2 (08:04→21:08)
[2021-12-18] MEDS: Aspirin 81 MG Tab.EC PO SCH (08:04)
[2021-12-18] MEDS: Magnesium Oxide 400 MG Tab PO SCH ×2 (08:04→21:02)
[2021-12-18] MEDS: Enoxaparin 40 MG/0.4 ML Syringe SUBCUT SCH (08:04)
[2021-12-18] MEDS: Insulin Glarg,Human.Rec.Analog 100 Unit/ML SUBCUT SCH ×2 (08:04→21:06)
[2021-12-18 08:09] LABS: ANION GAP 10.7 mmol/L (5-15); SODIUM,NA 122 mmol/L (136-145)
[2021-12-18] MEDS: Metoprolol Succinate 25 MG Tab.ER PO SCH (08:47)
[2021-12-18] MEDS: Losartan 50 MG Tab PO SCH (08:47)
[2021-12-18] MEDS ORDERED: Sodium Chloride 3% 500 ML IV ONE (09:49)
[2021-12-18] MEDS: Insulin Lispro 100 Units/ML 3 ML Vial SUBCUT SCH ×2 (11:05→17:13)
[2021-12-18] MEDS: Sodium Chloride/Potassium Chloride Tab PO SCH ×2 (11:36→21:06)
[2021-12-18] MEDS: Latanoprost 0.005% Ophth Soln 2.5 ML Bottle EYERT SCH (20:53)
[2021-12-18] MEDS: Melatonin 3 MG Tab PO PRN (21:02)
[2021-12-18] MEDS: Acetaminophen 500 MG Tab PO PRN (21:03)
[2021-12-18] MEDS: Sodium Chloride 0.9% 10 ML Syringe FLUSH PRN (21:09)
[2021-12-19 07:15] LABS: CHLORIDE,CL 89 mmol/L (98-107)
[2021-12-19 07:16] LABS: ANION GAP 10.9 mmol/L (5-15); SODIUM,NA 126 mmol/L (136-145)
[2021-12-19] MEDS: POTASSIUM PO SCH (08:03)
[2021-12-19] MEDS: Enoxaparin 40 MG/0.4 ML Syringe SUBCUT SCH (08:04)
[2021-12-19] MEDS: Aspirin 81 MG Tab.EC PO SCH (08:04)
[2021-12-19] MEDS: Metoprolol Succinate 25 MG Tab.ER PO SCH (08:04)
[2021-12-19] MEDS: Sodium Chloride/Potassium Chloride Tab PO SCH (08:04)
[2021-12-19] MEDS: Finasteride 5 MG Tab PO SCH (08:04)
[2021-12-19] MEDS: Torsemide 20 MG Tab PO SCH (08:04)
[2021-12-19] MEDS: Lactobacillus Rhamnosus GG (Probiotic) Cap PO SCH (08:04)
[2021-12-19] MEDS: atorvaSTATin 10 MG Tab PO SCH (08:04)
[2021-12-19] MEDS: Tamsulosin 0.4 MG Cap.ER PO SCH (08:04)
[2021-12-19] MEDS: Omeprazole 20 MG Cap.CR PO SCH (08:05)
[2021-12-19] MEDS: Losartan 50 MG Tab PO SCH (08:05)
[2021-12-19] MEDS: Magnesium Oxide 400 MG Tab PO SCH (08:05)
[2021-12-19] MEDS: Clopidogrel 75 MG Tab PO SCH (08:05)
[2021-12-19] MEDS: Insulin Glarg,Human.Rec.Analog 100 Unit/ML SUBCUT SCH (08:06)
[2021-12-19] MEDS: Timolol Maleate 0.5% Ophth Soln 5 ML Bottle EYEBOTH SCH (08:07)
[2021-12-19] MEDS: Insulin Lispro 100 Units/ML 3 ML Vial SUBCUT SCH (11:08)
[2021-12-19] MEDS ORDERED: ALPRAZolam 0.25 MG Tab PO PRN (13:17)
[2021-12-19 13:42] VITALS: BP 100/52; PULSE 61
== END 2021-12-19 15:09 | disposition home or self-care (01) | DRG 291 ==
LOC: VM.ED 07:44 → VM.MS 09:57
PROVIDERS: ADMIT Internal Medicine; ATTEND Internal Medicine
DX: I50.9 Heart failure, unspecified (principal); I11.0 Hypertensive heart disease with heart failure; I50.33 Acute on chronic diastolic (congestive) heart failure; E87.1 Hypo-osmolality and hyponatremia; E83.42 Hypomagnesemia; M48.12 Ankylosing hyperostosis [Forestier], cervical region; D64.9 Anemia, unspecified; L30.4 Erythema intertrigo; N40.0 Benign prostatic hyperplasia without lower urinary tract symptoms; J45.909 Unspecified asthma, uncomplicated; W19.XXXA Unspecified fall, initial encounter; M81.0 Age-related osteoporosis without current pathological fracture; I25.10 Atherosclerotic heart disease of native coronary artery without angina pectoris; I35.0 Nonrheumatic aortic (valve) stenosis; F17.200 Nicotine dependence, unspecified, uncomplicated; E53.8 Deficiency of other specified B group vitamins; E78.5 Hyperlipidemia, unspecified; Z79.82 Long term (current) use of aspirin; H40.9 Unspecified glaucoma; Z79.810 Long term (current) use of selective estrogen receptor modulators (SERMs); H52.4 Presbyopia; Z96.1 Presence of intraocular lens; E78.00 Pure hypercholesterolemia, unspecified; E11.51 Type 2 diabetes mellitus with diabetic peripheral angiopathy without gangrene; K21.9 Gastro-esophageal reflux disease without esophagitis; E11.40 Type 2 diabetes mellitus with diabetic neuropathy, unspecified; E66.9 Obesity, unspecified; E78.1 Pure hyperglyceridemia; F17.210 Nicotine dependence, cigarettes, uncomplicated; Z98.49 Cataract extraction status, unspecified eye; Y92.009 Unspecified place in unspecified non-institutional (private) residence as the place of occurrence of the external cause; Z87.11 Personal history of peptic ulcer disease; Z88.8 Allergy status to other drugs, medicaments and biological substances; Z79.899 Other long term (current) drug therapy; Z79.4 Long term (current) use of insulin; Z95.1 Presence of aortocoronary bypass graft; I25.2 Old myocardial infarction; Z90.49 Acquired absence of other specified parts of digestive tract; Z79.02 Long term (current) use of antithrombotics/antiplatelets; Z90.89 Acquired absence of other organs; Z91.19 Patient's noncompliance with other medical treatment and regimen
CPT/HCPCS: 36415; 71045; 80048; 80053; 81001; 82550; 82947; 82977; 83605; 83615; 83735; 83880; 84145; 84295; 84443; 84484; 85007; 85025; 85027; 86140; 87040; 97116-GP; 97162-GP; 97530-GP; 99284; 99285-25; A9270-GY; J0696; J1650; J1815-GY; J3475; J3490

== ENCOUNTER 2021-12-19 13:47 | Inpatient (IN) | payer MEDICARE, OTHER, MEDICAID ==
[2021-12-19] MEDS ORDERED: Glucagon,Human Recombinant 1 MG Vial IM PRN (15:06)
[2021-12-19] MEDS ORDERED: ALPRAZolam 0.25 MG Tab PO PRN (15:06)
[2021-12-19] MEDS ORDERED: Melatonin 3 MG Tab PO PRN (15:06)
[2021-12-19] MEDS ORDERED: 50% Dextrose in Water 50 ML Syringe IVPUSH PRN (15:06)
[2021-12-19] MEDS ORDERED: Sennosides 8.6 MG Tab PO PRN (15:06)
[2021-12-19] MEDS: Insulin Lispro 100 Units/ML 3 ML Vial SUBCUT SCH (17:05)
[2021-12-19] MEDS: Acetaminophen 500 MG Tab PO PRN ×2 (17:05→21:34)
[2021-12-19] MEDS: Latanoprost 0.005% Ophth Soln 2.5 ML Bottle EYERT SCH (21:32)
[2021-12-19] MEDS: Tamsulosin 0.4 MG Cap.ER PO SCH (21:33)
[2021-12-19] MEDS: Magnesium Oxide 400 MG Tab PO SCH (21:34)
[2021-12-19] MEDS: Insulin Glarg,Human.Rec.Analog 100 Unit/ML SUBCUT SCH (21:35)
[2021-12-19] MEDS: Timolol Maleate 0.5% Ophth Soln 5 ML Bottle EYEBOTH SCH (21:41)
[2021-12-20] MEDS: Omeprazole 20 MG Cap.CR PO SCH (06:29)
[2021-12-20] MEDS: Aspirin 81 MG Tab.EC PO SCH (08:10)
[2021-12-20] MEDS: Finasteride 5 MG Tab PO SCH (08:10)
[2021-12-20] MEDS: Torsemide 20 MG Tab PO SCH (08:10)
[2021-12-20] MEDS: Magnesium Oxide 400 MG Tab PO SCH ×2 (08:10→20:18)
[2021-12-20] MEDS: Timolol Maleate 0.5% Ophth Soln 5 ML Bottle EYEBOTH SCH ×2 (08:10→20:19)
[2021-12-20] MEDS: Metoprolol Succinate 25 MG Tab.ER PO SCH (08:10)
[2021-12-20] MEDS: Lactobacillus Rhamnosus GG (Probiotic) Cap PO SCH (08:10)
[2021-12-20] MEDS: atorvaSTATin 10 MG Tab PO SCH (08:11)
[2021-12-20] MEDS: Clopidogrel 75 MG Tab PO SCH (08:11)
[2021-12-20] MEDS: Insulin Glarg,Human.Rec.Analog 100 Unit/ML SUBCUT SCH ×2 (08:11→22:35)
[2021-12-20] MEDS: Losartan 50 MG Tab PO SCH (08:11)
[2021-12-20] MEDS: Tamsulosin 0.4 MG Cap.ER PO SCH ×2 (08:11→20:18)
[2021-12-20] MEDS ORDERED: POTASSIUM GLUCONATE PO SCH (09:00)
[2021-12-20] MEDS: Insulin Lispro 100 Units/ML 3 ML Vial SUBCUT SCH ×2 (12:38→17:05)
[2021-12-20] MEDS: Latanoprost 0.005% Ophth Soln 2.5 ML Bottle EYERT SCH (20:20)
[2021-12-21] MEDS: Omeprazole 20 MG Cap.CR PO SCH (06:55)
[2021-12-21 07:25] LABS: CHLORIDE,CL 91 mmol/L (98-107)
[2021-12-21 07:26] LABS: ANION GAP 9.9 mmol/L (5-15); SODIUM,NA 126 mmol/L (136-145)
[2021-12-21] MEDS: atorvaSTATin 10 MG Tab PO SCH (08:26)
[2021-12-21] MEDS: Tamsulosin 0.4 MG Cap.ER PO SCH ×2 (08:26→20:23)
[2021-12-21] MEDS: Torsemide 20 MG Tab PO SCH (08:27)
[2021-12-21] MEDS: Aspirin 81 MG Tab.EC PO SCH (08:27)
[2021-12-21] MEDS: Metoprolol Succinate 25 MG Tab.ER PO SCH (08:27)
[2021-12-21] MEDS: Magnesium Oxide 400 MG Tab PO SCH ×2 (08:27→20:23)
[2021-12-21] MEDS: Losartan 50 MG Tab PO SCH (08:27)
[2021-12-21] MEDS: Lactobacillus Rhamnosus GG (Probiotic) Cap PO SCH (08:27)
[2021-12-21] MEDS: Timolol Maleate 0.5% Ophth Soln 5 ML Bottle EYEBOTH SCH ×2 (08:28→20:24)
[2021-12-21] MEDS: Clopidogrel 75 MG Tab PO SCH (08:28)
[2021-12-21] MEDS: Finasteride 5 MG Tab PO SCH (08:28)
[2021-12-21] MEDS: Insulin Glarg,Human.Rec.Analog 100 Unit/ML SUBCUT SCH ×2 (08:30→22:41)
[2021-12-21] MEDS: POTASSIUM GLUCONATE PO SCH (08:32)
[2021-12-21] MEDS: Insulin Lispro 100 Units/ML 3 ML Vial SUBCUT SCH ×2 (12:36→17:38)
[2021-12-21] MEDS: Acetaminophen 500 MG Tab PO PRN (15:04)
[2021-12-21] MEDS: Latanoprost 0.005% Ophth Soln 2.5 ML Bottle EYERT SCH (20:24)
[2021-12-22] MEDS: Omeprazole 20 MG Cap.CR PO SCH (06:26)
[2021-12-22] MEDS: Magnesium Oxide 400 MG Tab PO SCH (08:08)
[2021-12-22] MEDS: Metoprolol Succinate 25 MG Tab.ER PO SCH (08:09)
[2021-12-22] MEDS: Clopidogrel 75 MG Tab PO SCH (08:09)
[2021-12-22] MEDS: Aspirin 81 MG Tab.EC PO SCH (08:09)
[2021-12-22] MEDS: Tamsulosin 0.4 MG Cap.ER PO SCH (08:09)
[2021-12-22] MEDS: Torsemide 20 MG Tab PO SCH (08:09)
[2021-12-22] MEDS: Lactobacillus Rhamnosus GG (Probiotic) Cap PO SCH (08:09)
[2021-12-22] MEDS: atorvaSTATin 10 MG Tab PO SCH (08:09)
[2021-12-22] MEDS: Finasteride 5 MG Tab PO SCH (08:09)
[2021-12-22] MEDS: Losartan 50 MG Tab PO SCH (08:09)
[2021-12-22 08:11] VITALS: BP 140/90; PULSE 80
[2021-12-22] MEDS: Insulin Glarg,Human.Rec.Analog 100 Unit/ML SUBCUT SCH (08:13)
[2021-12-22] MEDS: POTASSIUM GLUCONATE PO SCH (08:14)
[2021-12-22] MEDS: Timolol Maleate 0.5% Ophth Soln 5 ML Bottle EYEBOTH SCH (08:14)
== END 2021-12-22 11:51 | DRG 948 ==
LOC: UNDOADMIN 13:47 → VM.MS 13:47
PROVIDERS: ADMIT Internal Medicine; ATTEND Internal Medicine
DX: R53.1 Weakness (principal); I50.32 Chronic diastolic (congestive) heart failure; E87.1 Hypo-osmolality and hyponatremia; I11.0 Hypertensive heart disease with heart failure; I25.10 Atherosclerotic heart disease of native coronary artery without angina pectoris; E11.9 Type 2 diabetes mellitus without complications; K21.9 Gastro-esophageal reflux disease without esophagitis; K27.9 Peptic ulcer, site unspecified, unspecified as acute or chronic, without hemorrhage or perforation; I73.9 Peripheral vascular disease, unspecified; Z95.1 Presence of aortocoronary bypass graft; Z79.4 Long term (current) use of insulin; Z79.02 Long term (current) use of antithrombotics/antiplatelets; Z79.899 Other long term (current) drug therapy; Z20.822 Contact with and (suspected) exposure to COVID-19; N40.0 Benign prostatic hyperplasia without lower urinary tract symptoms
CPT/HCPCS: 36415; 80048; 82947; 85025; 92610-GN; 97110-GP; 97116-GP; A9270-GY; U0002

== ENCOUNTER 2022-09-20 07:25 | Day surgery (SDC) | payer MEDICARE, MEDICAID ==
[~2022-09-20 07:25] MED LIST: Lactated Ringers 1,000 ML IV SCH
[2022-09-20] MEDS ORDERED: fentaNYL 100 MCG/2 ML SDV ONE (08:13)
[2022-09-20] MEDS ORDERED: Propofol 200 MG/20 ML SDV ONE (08:13)
[2022-09-20 10:52] VITALS: BP 108/52; PULSE 84
== END 2022-09-20 10:55 ==
LOC: VM.SDS 07:25
PROVIDERS: ATTEND Family Medicine
DX: K29.50 Unspecified chronic gastritis without bleeding (principal); K31.9 Disease of stomach and duodenum, unspecified; K44.9 Diaphragmatic hernia without obstruction or gangrene; K21.9 Gastro-esophageal reflux disease without esophagitis; E78.1 Pure hyperglyceridemia; I25.10 Atherosclerotic heart disease of native coronary artery without angina pectoris; E53.8 Deficiency of other specified B group vitamins; I11.0 Hypertensive heart disease with heart failure; I50.32 Chronic diastolic (congestive) heart failure; E11.9 Type 2 diabetes mellitus without complications; E66.9 Obesity, unspecified; D64.9 Anemia, unspecified; M19.90 Unspecified osteoarthritis, unspecified site; J44.9 Chronic obstructive pulmonary disease, unspecified; I73.9 Peripheral vascular disease, unspecified; Z95.1 Presence of aortocoronary bypass graft; Z98.890 Other specified postprocedural states; Z79.899 Other long term (current) drug therapy; Z79.4 Long term (current) use of insulin; Z79.82 Long term (current) use of aspirin; Z88.8 Allergy status to other drugs, medicaments and biological substances; Z68.29 Body mass index [BMI] 29.0-29.9, adult
CPT/HCPCS: 00731; 82947; 88305; 88342; J2704; J3010; J7120

== ENCOUNTER 2023-09-08 02:20 | Emergency (ER) | payer MEDICARE, MEDICAID ==
[2023-09-08 04:57] VITALS: BP 117/70; PULSE 96
== END 2023-09-08 03:06 | disposition home or self-care (01) ==
LOC: VM.ED 02:20
DX: J06.9 Acute upper respiratory infection, unspecified (principal); I11.0 Hypertensive heart disease with heart failure; I50.9 Heart failure, unspecified; E78.00 Pure hypercholesterolemia, unspecified; I25.10 Atherosclerotic heart disease of native coronary artery without angina pectoris; K21.9 Gastro-esophageal reflux disease without esophagitis; M19.90 Unspecified osteoarthritis, unspecified site; E11.40 Type 2 diabetes mellitus with diabetic neuropathy, unspecified; Z95.5 Presence of coronary angioplasty implant and graft; Z79.82 Long term (current) use of aspirin; Z79.4 Long term (current) use of insulin; Z88.8 Allergy status to other drugs, medicaments and biological substances; Z79.899 Other long term (current) drug therapy
CPT/HCPCS: 99284

== ENCOUNTER 2024-03-29 21:53 | Emergency (ER) | payer MEDICARE, OTHER, MEDICAID ==
[2024-03-29] MEDS: Lactated Ringers 1,000 ML IV ONE (22:24)
[2024-03-29 22:25] LABS: HEMOGLOBIN 10.6 g/dL (14.0-18.0); IMMATURE GRAN ABSOLUTE AUTO 0.08 x10^3/uL (0.00-0.07); LYMPHOCYTES ABSOLUTE AUTO 0.7 x10^3/uL (1.0-4.8); LYMPHOCYTES PERCENT AUTO 7.2 % (25.0-50.0); MEAN CORPUSCULAR HEMOGLOBIN 34.4 pg (26.0-32.0); MEAN CORPUSCULAR HGB CONC 36.6 g/dL (32.0-36.0); MEAN CORPUSCULAR VOLUME 94.2 fL (78.0-93.0); MONOCYTES ABSOLUTE AUTO 0.6 x10^3/uL (0.0-0.8); MONOCYTES PERCENT AUTO 6.6 % (2.0-11.0); NEUTROPHILS ABSOLUTE AUTO 7.8 x10^3/uL (1.8-7.7); NEUTROPHILS PERCENT AUTO 85.3 % (50.0-80.0); PLATELET COUNT,PLT 156 x10^3/uL (130-400); RED BLOOD CELL COUNT 3.08 x10^6/uL (4.5-6.0); WHITE BLOOD CELL COUNT,WBC 9.1 x10^3/uL (4.0-10.0)
[2024-03-29 22:42] LABS: A/G RATIO 0.51; ALANINE AMINOTRANSFERASE,ALT 22 U/L (16-63); ALBUMIN 1.8 g/dL (3.4-5.0); ALKALINE PHOSPHATASE 103 U/L (46-116); ASPARTATE AMNIOTRANSFERASE,AST 37 U/L (15-37); BILIRUBIN TOTAL 1.3 mg/dL (0.2-1.0); BLOOD UREA NITROGEN,BUN 18 mg/dL (7-18); CALCIUM 7.6 mg/dL (8.5-10.1); CARBON DIOXIDE,CO2 31 mmol/L (21-32); CHLORIDE,CL 89 mmol/L (98-107); CREATININE 1.1 mg/dL (0.70-1.30); GLUCOSE RANDOM 152 mg/dL (70-99); MAGNESIUM 1.8 mg/dL (1.8-2.4); PROTEIN TOTAL,TP 5.3 g/dL (6.4-8.2)
[2024-03-29 22:43] LABS: ESTIMATED GFR 64 mL/min (>=60); SODIUM,NA 125 mmol/L (136-145)
[2024-03-29] MEDS: Iopamidol 612 MG/ML 100 ML Bottle IVPUSH ONE (23:42)
[2024-03-29 23:53] VITALS: PULSE 79
[2024-03-30 00:59] VITALS: BP 102/51
== END 2024-03-30 01:08 ==
LOC: VM.ED 21:53
DX: R10.84 Generalized abdominal pain (principal); I48.91 Unspecified atrial fibrillation; E87.1 Hypo-osmolality and hyponatremia; E87.6 Hypokalemia; R91.8 Other nonspecific abnormal finding of lung field; I11.0 Hypertensive heart disease with heart failure; I50.9 Heart failure, unspecified; I25.10 Atherosclerotic heart disease of native coronary artery without angina pectoris; E78.00 Pure hypercholesterolemia, unspecified; K21.9 Gastro-esophageal reflux disease without esophagitis; E66.9 Obesity, unspecified; E11.40 Type 2 diabetes mellitus with diabetic neuropathy, unspecified; Z79.82 Long term (current) use of aspirin; Z79.899 Other long term (current) drug therapy; Z79.4 Long term (current) use of insulin; Z88.8 Allergy status to other drugs, medicaments and biological substances; Z95.1 Presence of aortocoronary bypass graft; Z68.29 Body mass index [BMI] 29.0-29.9, adult
CPT/HCPCS: 74177; 80053; 83735; 85025; 93005; 94760; 96360; 99285; J7120; Q9967; 93010; 99284

== ENCOUNTER 2024-03-30 18:01 | Inpatient (IN) | payer MEDICARE, OTHER, MEDICAID ==
[2024-03-30] MEDS ORDERED: Sodium Chloride 0.9% 10 ML Syringe FLUSH PRN (18:53)
[2024-03-30 19:13] LABS: HEMATOCRIT 27.9 % (40.0-52.0); HEMOGLOBIN 10.1 g/dL (14.0-18.0); IMMATURE GRAN ABSOLUTE AUTO 0.14 x10^3/uL (0.00-0.07); LYMPHOCYTES ABSOLUTE AUTO 0.6 x10^3/uL (1.0-4.8); LYMPHOCYTES PERCENT AUTO 5.6 % (25.0-50.0); MEAN CORPUSCULAR HEMOGLOBIN 34.7 pg (26.0-32.0); MEAN CORPUSCULAR HGB CONC 36.2 g/dL (32.0-36.0); MEAN CORPUSCULAR VOLUME 95.9 fL (78.0-93.0); MONOCYTES ABSOLUTE AUTO 0.6 x10^3/uL (0.0-0.8); MONOCYTES PERCENT AUTO 5.3 % (2.0-11.0); NEUTROPHILS ABSOLUTE AUTO 9.7 x10^3/uL (1.8-7.7); NEUTROPHILS PERCENT AUTO 87.8 % (50.0-80.0); PLATELET COUNT,PLT 159 x10^3/uL (130-400); RED BLOOD CELL COUNT 2.91 x10^6/uL (4.5-6.0); WHITE BLOOD CELL COUNT,WBC 11.1 x10^3/uL (4.0-10.0)
[2024-03-30 19:35] LABS: A/G RATIO 0.47; ALANINE AMINOTRANSFERASE,ALT 20 U/L (16-63); ALBUMIN 1.6 g/dL (3.4-5.0); ALKALINE PHOSPHATASE 95 U/L (46-116); ASPARTATE AMNIOTRANSFERASE,AST 33 U/L (15-37); BILIRUBIN TOTAL 1.1 mg/dL (0.2-1.0); BLOOD UREA NITROGEN,BUN 16 mg/dL (7-18); CALCIUM 7.5 mg/dL (8.5-10.1); CARBON DIOXIDE,CO2 29 mmol/L (21-32); CHLORIDE,CL 93 mmol/L (98-107); CREATININE 0.9 mg/dL (0.70-1.30); GLUCOSE RANDOM 162 mg/dL (70-99); MAGNESIUM 1.9 mg/dL (1.8-2.4); POTASSIUM,K 3.3 mmol/L (3.5-5.1); PRO B-TYPE NATRIUR PEPT,BNPPRO 14662 pg/mL (<=450)
[2024-03-30 19:36] LABS: ESTIMATED GFR 82 mL/min (>=60)
[2024-03-30 19:37] LABS: ANION GAP 10.3 mmol/L (5-15); SODIUM,NA 129 mmol/L (136-145)
[2024-03-30] MEDS ORDERED: Naloxone 0.4 MG/ML SDV IVPUSH PRN (20:38)
[2024-03-30 20:50] LABS: LACTIC ACID 1.6 mmol/L (0.4-2.0)
[2024-03-30] MEDS: Morphine 2 MG/ML SYRINGE IVPUSH PRN (21:06)
[2024-03-30] MEDS: cefTRIAXone 2 GM Vial IVPUSH ONE (21:07)
[2024-03-30] MEDS: Azithromycin 500 MG in Sodium Chloride 0.9% 250 ML IV ONE (21:08)
[2024-03-30] MEDS: Albuterol/Ipratropium 3.0-0.5 MG/3 ML Neb Soln NEB SCH (21:25)
[2024-03-30] MEDS: NS + KCl 20mEq/L 1,000 ML IV SCH (22:26)
[2024-03-31] MEDS ORDERED: Bisacodyl 10 MG Supp RECTAL PRN (06:29)
[2024-03-31] MEDS ORDERED: Magnesium Hydroxide 400 MG/5 ML Susp 30 ML Cup PO PRN (06:29)
[2024-03-31 06:47] LABS: BASOPHILS PERCENT AUTO 0.1 % (0.2-1.2); EOSINOPHILS PERCENT AUTO 0.2 % (0.0-4.0); HEMATOCRIT 28.3 % (40.0-52.0); LYMPHOCYTES ABSOLUTE AUTO 1.2 x10^3/uL (1.0-4.8); LYMPHOCYTES PERCENT AUTO 11.6 % (25.0-50.0); MEAN CORPUSCULAR HEMOGLOBIN 34.6 pg (26.0-32.0); MEAN CORPUSCULAR HGB CONC 35.3 g/dL (32.0-36.0); MEAN CORPUSCULAR VOLUME 97.9 fL (78.0-93.0); MONOCYTES ABSOLUTE AUTO 0.7 x10^3/uL (0.0-0.8); NEUTROPHILS ABSOLUTE AUTO 8.1 x10^3/uL (1.8-7.7); NEUTROPHILS PERCENT AUTO 79.1 % (50.0-80.0); PLATELET COUNT,PLT 163 x10^3/uL (130-400); RED BLOOD CELL COUNT 2.89 x10^6/uL (4.5-6.0); WHITE BLOOD CELL COUNT,WBC 10.2 x10^3/uL (4.0-10.0)
[2024-03-31 07:09] LABS: A/G RATIO 0.44; ALBUMIN 1.6 g/dL (3.4-5.0); BILIRUBIN TOTAL 0.7 mg/dL (0.2-1.0); CALCIUM 7.5 mg/dL (8.5-10.1); CREATININE 0.9 mg/dL (0.70-1.30); EST CRCL DRUG DOSING (CG) 61.07 mL/min; POTASSIUM,K 3.1 mmol/L (3.5-5.1); PROTEIN TOTAL,TP 5.2 g/dL (6.4-8.2)
[2024-03-31 07:13] LABS: ANION GAP 8.1 mmol/L (5-15)
[2024-03-31] MEDS: Magnesium Oxide 400 MG Tab PO SCH (09:27)
[2024-03-31] MEDS: Aspirin 81 MG Tab.EC PO SCH (09:28)
[2024-03-31] MEDS: Insulin Glarg,Human.Rec.Analog 100 Unit/ML 10 ML Vial SUBCUT SCH (09:28)
[2024-03-31] MEDS: Camphor/Menthol 0.5-0.5% Lotion 222 ML Bottle TOP SCH (09:28)
[2024-03-31] MEDS: guaiFENesin 600 MG Tab.ER PO SCH (09:28)
[2024-03-31] MEDS: Tamsulosin 0.4 MG Cap.ER PO SCH (09:28)
[2024-03-31] MEDS: Timolol Maleate 0.5% Ophth Soln 5 ML Bottle EYEBOTH SCH (09:29)
[2024-03-31] MEDS: Potassium Chloride 20 MEQ Tab.ER PO SCH ×2 (09:36→09:57)
[2024-03-31 10:00] LABS: C-REACTIVE PROTEIN 12.64 mg/dL (<=0.50); TSH ULTRASENSITIVE 4.177 uIU/mL (0.358-3.74)
[2024-03-31] MEDS: Lactobacillus Rhamnosus GG (Probiotic) Cap PO SCH (10:16)
[2024-03-31] MEDS: Piperacillin/Tazobactam 4.5 GM in Sodium Chloride 0.9% 100 ML IV ONE (10:16)
[2024-03-31] MEDS: Apixaban 2.5 MG Tab PO SCH (10:18)
[2024-03-31] MEDS ORDERED: Enoxaparin 40 MG/0.4 ML Syringe SUBCUT SCH (12:00)
[2024-03-31] MEDS: Piperacillin/Tazobactam 4.5 GM in Sodium Chloride 0.9% 100 ML IV SCH (16:08)
[2024-03-31] MEDS: Menthol/Zinc Oxide Ointment 3.5 GM Tube TOP SCH (18:04)
[2024-03-31] MEDS: Latanoprost 0.005% Ophth Soln 2.5 ML Bottle EYEBOTH SCH (21:23)
[2024-03-31] MEDS: Morphine 2 MG/ML SYRINGE IVPUSH PRN (21:45)
[2024-04-01] MEDS: Omeprazole 20 MG Cap.CR PO SCH (06:19)
[2024-04-01 06:51] LABS: BASOPHILS PERCENT AUTO 0.1 % (0.2-1.2); EOSINOPHILS PERCENT AUTO 0.4 % (0.0-4.0); HEMATOCRIT 25.4 % (40.0-52.0); HEMOGLOBIN 8.9 g/dL (14.0-18.0); LYMPHOCYTES ABSOLUTE AUTO 0.8 x10^3/uL (1.0-4.8); LYMPHOCYTES PERCENT AUTO 7.9 % (25.0-50.0); MEAN CORPUSCULAR HEMOGLOBIN 34.8 pg (26.0-32.0); MEAN CORPUSCULAR VOLUME 99.2 fL (78.0-93.0); MONOCYTES ABSOLUTE AUTO 0.6 x10^3/uL (0.0-0.8); MONOCYTES PERCENT AUTO 6.5 % (2.0-11.0); NEUTROPHILS ABSOLUTE AUTO 7.8 x10^3/uL (1.8-7.7); NEUTROPHILS PERCENT AUTO 80.9 % (50.0-80.0); PLATELET COUNT,PLT 173 x10^3/uL (130-400); RED BLOOD CELL COUNT 2.56 x10^6/uL (4.5-6.0); WHITE BLOOD CELL COUNT,WBC 9.6 x10^3/uL (4.0-10.0)
[2024-04-01 07:00] LABS: CALCIUM 7.5 mg/dL (8.5-10.1); CREATININE 0.8 mg/dL (0.70-1.30); EST CRCL DRUG DOSING (CG) 68.71 mL/min; POTASSIUM,K 3.9 mmol/L (3.5-5.1)
[2024-04-01 07:01] LABS: ANION GAP 4.9 mmol/L (5-15)
[2024-04-01] MEDS: Furosemide 20 MG/2 ML VIAL IV SCH (09:32)
[2024-04-01] MEDS: Ondansetron 4 MG Tab.DIS PO PRN (21:06)
[2024-04-02 06:57] LABS: BASOPHILS PERCENT AUTO 0.1 % (0.2-1.2); EOSINOPHILS PERCENT AUTO 0.2 % (0.0-4.0); HEMATOCRIT 25.5 % (40.0-52.0); HEMOGLOBIN 8.7 g/dL (14.0-18.0); IMMATURE GRAN ABSOLUTE AUTO 0.49 x10^3/uL (0.00-0.07); LYMPHOCYTES ABSOLUTE AUTO 0.8 x10^3/uL (1.0-4.8); MEAN CORPUSCULAR HEMOGLOBIN 34.5 pg (26.0-32.0); MEAN CORPUSCULAR HGB CONC 34.1 g/dL (32.0-36.0); MEAN CORPUSCULAR VOLUME 101.2 fL (78.0-93.0); MONOCYTES ABSOLUTE AUTO 0.7 x10^3/uL (0.0-0.8); MONOCYTES PERCENT AUTO 6.7 % (2.0-11.0); NEUTROPHILS ABSOLUTE AUTO 8.8 x10^3/uL (1.8-7.7); NEUTROPHILS PERCENT AUTO 81.5 % (50.0-80.0); PLATELET COUNT,PLT 212 x10^3/uL (130-400); RED BLOOD CELL COUNT 2.52 x10^6/uL (4.5-6.0); WHITE BLOOD CELL COUNT,WBC 10.8 x10^3/uL (4.0-10.0)
[2024-04-02 07:13] LABS: CALCIUM 7.3 mg/dL (8.5-10.1); CREATININE 0.9 mg/dL (0.70-1.30); EST CRCL DRUG DOSING (CG) 61.07 mL/min; POTASSIUM,K 3.9 mmol/L (3.5-5.1)
[2024-04-02 07:16] LABS: ANION GAP 5.9 mmol/L (5-15)
[2024-04-02] MEDS: Furosemide 40 MG/4 ML VIAL IV SCH (08:55)
[2024-04-02] MEDS: Pantoprazole 40 MG Vial IVPUSH SCH (09:08)
[2024-04-03 06:51] LABS: BASOPHILS PERCENT AUTO 0.1 % (0.2-1.2); EOSINOPHILS PERCENT AUTO 0.2 % (0.0-4.0); IMMATURE GRAN ABSOLUTE AUTO 1.42 x10^3/uL (0.00-0.07); LYMPHOCYTES ABSOLUTE AUTO 1.5 x10^3/uL (1.0-4.8); LYMPHOCYTES PERCENT AUTO 8.3 % (25.0-50.0); MEAN CORPUSCULAR HGB CONC 34.5 g/dL (32.0-36.0); MEAN CORPUSCULAR VOLUME 101.5 fL (78.0-93.0); MONOCYTES ABSOLUTE AUTO 0.9 x10^3/uL (0.0-0.8); NEUTROPHILS ABSOLUTE AUTO 14.1 x10^3/uL (1.8-7.7); NEUTROPHILS PERCENT AUTO 78.5 % (50.0-80.0); PLATELET COUNT,PLT 251 x10^3/uL (130-400); RED BLOOD CELL COUNT 1.97 x10^6/uL (4.5-6.0)
[2024-04-03 06:53] LABS: HEMOGLOBIN 6.9 g/dL (14.0-18.0)
[2024-04-03 06:59] LABS: WHITE BLOOD CELL COUNT,WBC 17.9 x10^3/uL (4.0-10.0)
[2024-04-03 07:11] LABS: A/G RATIO 0.36; ALBUMIN 1.3 g/dL (3.4-5.0); BILIRUBIN TOTAL 0.7 mg/dL (0.2-1.0); CALCIUM 7.5 mg/dL (8.5-10.1); CREATININE 1.1 mg/dL (0.70-1.30); EST CRCL DRUG DOSING (CG) 49.97 mL/min; POTASSIUM,K 4.5 mmol/L (3.5-5.1); PROTEIN TOTAL,TP 4.9 g/dL (6.4-8.2)
[2024-04-03 07:12] LABS: ANION GAP 8.5 mmol/L (5-15)
[2024-04-03 15:21] LABS: HEMATOCRIT 21.2 % (40.0-52.0); HEMOGLOBIN 7.3 g/dL (14.0-18.0)
[2024-04-03] MEDS: Famotidine 20 MG/2 ML SDV IVPUSH SCH (16:06)
[2024-04-03] MEDS: Digoxin 500 MCG/2 ML Amp IVPUSH SCH (17:35)
[2024-04-03 18:10] LABS: HEMATOCRIT 20.7 % (40.0-52.0); HEMOGLOBIN 7.2 g/dL (14.0-18.0)
[2024-04-03] MEDS: Sodium Chloride 0.9% 500 ML IV ONE (19:35)
[2024-04-04 08:13] LABS: HEMATOCRIT 20.5 % (40.0-52.0); MEAN CORPUSCULAR HEMOGLOBIN 34.1 pg (26.0-32.0); MEAN CORPUSCULAR HGB CONC 34.1 g/dL (32.0-36.0); PLATELET COUNT,PLT 241 x10^3/uL (130-400); RED BLOOD CELL COUNT 2.05 x10^6/uL (4.5-6.0); WHITE BLOOD CELL COUNT,WBC 18.1 x10^3/uL (4.0-10.0)
[2024-04-04 08:30] LABS: CALCIUM 7.6 mg/dL (8.5-10.1); CREATININE 1.2 mg/dL (0.70-1.30); EST CRCL DRUG DOSING (CG) 45.81 mL/min; POTASSIUM,K 5.4 mmol/L (3.5-5.1)
[2024-04-04 08:34] LABS: ANION GAP 8.4 mmol/L (5-15)
[2024-04-04] MEDS: Digoxin 125 MCG Tab PO SCH (09:11)
[2024-04-04 09:14] LABS: LYMPHOCYTES ABSOLUTE MAN 1.8 x10^3/uL (1.0-4.8); LYMPHOCYTES PERCENT MAN 10 % (25-50); MONOCYTES ABSOLUTE MAN 0.9 x10^3/uL (0.0-0.8); MONOCYTES PERCENT MAN 5 % (2-11); NEUTROPHILS ABSOLUTE MAN 15.4 x10^3/uL (1.8-7.7); PLATELET COUNT ESTIMATE ADEQUATE; SEG NEUTROPHILS PERCENT MAN 85 % (50-80)
[2024-04-05 08:13] LABS: HEMATOCRIT 20.8 % (40.0-52.0); MEAN CORPUSCULAR HGB CONC 33.7 g/dL (32.0-36.0); PLATELET COUNT,PLT 249 x10^3/uL (130-400); RED BLOOD CELL COUNT 2.06 x10^6/uL (4.5-6.0); WHITE BLOOD CELL COUNT,WBC 12.4 x10^3/uL (4.0-10.0)
[2024-04-05 08:31] LABS: BAND PERCENT MAN 1 % (0-6); EOSINOPHILS ABSOLUTE MAN 0.1 x10^3/uL (0.0-0.5); EOSINOPHILS PERCENT MAN 1 % (0-4); LYMPHOCYTES ABSOLUTE MAN 0.9 x10^3/uL (1.0-4.8); LYMPHOCYTES PERCENT MAN 7 % (25-50); MONOCYTES ABSOLUTE MAN 0.7 x10^3/uL (0.0-0.8); MONOCYTES PERCENT MAN 6 % (2-11); NEUTROPHILS ABSOLUTE MAN 10.7 x10^3/uL (1.8-7.7); PLATELET COUNT ESTIMATE ADEQUATE; SEG NEUTROPHILS PERCENT MAN 85 % (50-80)
[2024-04-05 08:36] LABS: A/G RATIO 0.33; ALBUMIN 1.3 g/dL (3.4-5.0); BILIRUBIN TOTAL 0.7 mg/dL (0.2-1.0); CALCIUM 7.4 mg/dL (8.5-10.1); CREATININE 1.1 mg/dL (0.70-1.30); EST CRCL DRUG DOSING (CG) 49.97 mL/min; POTASSIUM,K 4.1 mmol/L (3.5-5.1); PROTEIN TOTAL,TP 5.2 g/dL (6.4-8.2)
[2024-04-05 08:38] LABS: ANION GAP 9.1 mmol/L (5-15)
[2024-04-05] MEDS: Acetaminophen 325 MG Tab PO PRN (10:39)
[2024-04-05 18:44] LABS: HEMATOCRIT 22.7 % (40.0-52.0); HEMOGLOBIN 7.6 g/dL (14.0-18.0); MEAN CORPUSCULAR HEMOGLOBIN 34.2 pg (26.0-32.0); MEAN CORPUSCULAR HGB CONC 33.5 g/dL (32.0-36.0); MEAN CORPUSCULAR VOLUME 102.3 fL (78.0-93.0); RED BLOOD CELL COUNT 2.22 x10^6/uL (4.5-6.0); WHITE BLOOD CELL COUNT,WBC 11.6 x10^3/uL (4.0-10.0)
[2024-04-06 07:24] LABS: BASOPHILS PERCENT AUTO 0.1 % (0.2-1.2); EOSINOPHILS ABSOLUTE AUTO 0.1 x10^3/uL (0.0-0.5); EOSINOPHILS PERCENT AUTO 0.6 % (0.0-4.0); HEMATOCRIT 22.6 % (40.0-52.0); HEMOGLOBIN 7.8 g/dL (14.0-18.0); IMMATURE GRAN ABSOLUTE AUTO 0.61 x10^3/uL (0.00-0.07); LYMPHOCYTES PERCENT AUTO 8.6 % (25.0-50.0); MEAN CORPUSCULAR HEMOGLOBIN 35.1 pg (26.0-32.0); MEAN CORPUSCULAR HGB CONC 34.5 g/dL (32.0-36.0); MEAN CORPUSCULAR VOLUME 101.8 fL (78.0-93.0); MONOCYTES ABSOLUTE AUTO 0.9 x10^3/uL (0.0-0.8); MONOCYTES PERCENT AUTO 7.7 % (2.0-11.0); NEUTROPHILS PERCENT AUTO 77.8 % (50.0-80.0); PLATELET COUNT,PLT 246 x10^3/uL (130-400); RED BLOOD CELL COUNT 2.22 x10^6/uL (4.5-6.0); WHITE BLOOD CELL COUNT,WBC 11.6 x10^3/uL (4.0-10.0)
[2024-04-06 07:36] LABS: A/G RATIO 0.33; ALBUMIN 1.3 g/dL (3.4-5.0); BILIRUBIN TOTAL 0.8 mg/dL (0.2-1.0); CALCIUM 7.7 mg/dL (8.5-10.1); CREATININE 1.1 mg/dL (0.70-1.30); EST CRCL DRUG DOSING (CG) 49.97 mL/min; POTASSIUM,K 4.4 mmol/L (3.5-5.1); PROTEIN TOTAL,TP 5.3 g/dL (6.4-8.2)
[2024-04-06 08:10] LABS: ANION GAP 6.4 mmol/L (5-15)
[2024-04-06 09:19] VITALS: BP 113/53; PULSE 62
[2024-04-06] MEDS: Cyanocobalamin (Vitamin B12) 1,000 MCG/ML SDV IM ONE (09:20)
== END 2024-04-06 11:25 | DRG 177 ==
LOC: VM.ED 18:01 → VM.MS 20:09
PROVIDERS: ADMIT Family Medicine; ATTEND Internal Medicine
PROC: 0T9B70Z Drainage of Bladder with Drainage Device, Via Natural or Artificial Opening (ICD-10-PCS; 2024-03-31)
PROC: 30233N1 Transfusion of Nonautologous Red Blood Cells into Peripheral Vein, Percutaneous Approach (ICD-10-PCS; principal; 2024-04-03)
DX: J69.0 Pneumonitis due to inhalation of food and vomit (principal); E87.70 Fluid overload, unspecified; E43 Unspecified severe protein-calorie malnutrition; I50.9 Heart failure, unspecified; I21.4 Non-ST elevation (NSTEMI) myocardial infarction; I50.43 Acute on chronic combined systolic (congestive) and diastolic (congestive) heart failure; J96.21 Acute and chronic respiratory failure with hypoxia; E11.21 Type 2 diabetes mellitus with diabetic nephropathy; K27.4 Chronic or unspecified peptic ulcer, site unspecified, with hemorrhage; R57.8 Other shock; E87.1 Hypo-osmolality and hyponatremia; J44.0 Chronic obstructive pulmonary disease with (acute) lower respiratory infection; Z91.048 Other nonmedicinal substance allergy status; D62 Acute posthemorrhagic anemia; K92.1 Melena; I11.0 Hypertensive heart disease with heart failure; Z66 Do not resuscitate; I48.91 Unspecified atrial fibrillation; I25.10 Atherosclerotic heart disease of native coronary artery without angina pectoris; E78.00 Pure hypercholesterolemia, unspecified; K21.9 Gastro-esophageal reflux disease without esophagitis; N40.0 Benign prostatic hyperplasia without lower urinary tract symptoms; M19.90 Unspecified osteoarthritis, unspecified site; M81.0 Age-related osteoporosis without current pathological fracture; E11.40 Type 2 diabetes mellitus with diabetic neuropathy, unspecified; E66.9 Obesity, unspecified; G47.33 Obstructive sleep apnea (adult) (pediatric); I72.3 Aneurysm of iliac artery; E87.6 Hypokalemia; M48.10 Ankylosing hyperostosis [Forestier], site unspecified; I95.9 Hypotension, unspecified; E87.5 Hyperkalemia; E53.8 Deficiency of other specified B group vitamins; Z88.8 Allergy status to other drugs, medicaments and biological substances; Z79.82 Long term (current) use of aspirin; Z79.4 Long term (current) use of insulin; Z79.899 Other long term (current) drug therapy; Z87.81 Personal history of (healed) traumatic fracture; Z68.29 Body mass index [BMI] 29.0-29.9, adult; Z98.49 Cataract extraction status, unspecified eye; Z98.890 Other specified postprocedural states; Z90.89 Acquired absence of other organs; Z90.49 Acquired absence of other specified parts of digestive tract; Z95.1 Presence of aortocoronary bypass graft; Z95.5 Presence of coronary angioplasty implant and graft; Z89.421 Acquired absence of other right toe(s); Z87.19 Personal history of other diseases of the digestive system
CPT/HCPCS: 36415; 36430; 71045; 80048; 80053; 82607; 82947; 83605; 83690; 83735; 83880; 84145; 84443; 84484; 85014; 85018; 85025; 85027; 86140; 86850; 86900; 86901; 86920; 86922; 87040; 87070; 93005; 93010; 94640; 94760; 99232; 99233; 99284; 99285; A9270-GY; J0456; J0696; J1160; J1815-GY; J1940; J2270; J2470; J2543; J3420; J3480; J3490; J7030; J7050; J7620-GY; P9016; U0002